=== PATIENT | female | born 1985 | race Caucasian/White ===

== ENCOUNTER 2025-03-19 15:08 | Outpatient (CLI) | payer OTHER, SELFPAY | END 2025-03-19 15:09 | disposition home or self-care (01) | PROVIDERS: Visit Provider Physician Assistant | DX: O16.3 Unspecified maternal hypertension, third trimester (principal); Z3A.33 33 weeks gestation of pregnancy | CPT/HCPCS: 82565; 82570; 84156; 84450; 84460; 84520 ==

== ENCOUNTER 2025-03-20 10:53 | Outpatient (CLI) | payer OTHER, SELFPAY ==
[2025-03-20] VITALS (39 sets, daily range): BP systolic 129–182; BP diastolic 70–96; PULSE 78–110; RESP 17; TEMP 36.8; O2SAT 100
--- NOTE | 2025-03-20 11:32 | P.OBLDTN_ITS ---
OB - Triage/Final Diagnosis Visit Information Date Seen: 03/20/25 Narrative: Jennifer is a 39 yo at 34 0/7 weeks gestation sent to triage for serial BP monitoring x 2 hours. She had an elevated BP in clinic yesterday and subsequent labs were drawn. She has not meet criteria for HTN disorder of at the time she was sent to OB triage. Her repeat BP today in clinic was 122/78. Her labs resulted last evening and were reviewed with her in clinic this morning. Her AST was 56 and ALT 82 with a p/c ratio of 0.82. Jennifer is a 39 yo at 34 0/7 weeks gestation dated by 1st trimester US. She transferred to [facility] on 03/05/2025 from [facility]. She was diagnosed with Gestational Diabetes on her transfer visit and was able to manage by diet until recently. She was seen yesterday by VENKATA Sauer and started on insulin for management of elevated fasting blood sugar. At that visit she had an elevated BP, on repeat remained elevated. MD occupational health physiotherapist, Dr. Shelbi Connolly, recommended labs which resulted over night. Patient was instructed to return this am for BP check. Her blood pressure in clinic this morning was 122/78. She denies any symptoms of severe pre- e. Her labs were elevated with AST 56, ALT 82, and p/c ratio 0.84. Consulted occupational health physiotherapist MD this morning, Dr. Aguilar, who recommended BP monitoring in OB triage. She was sent for repeat labs and BP monitoring. Her BP has remained elevated since arrival at triage with BP of 140's/70-90's. Labs are stable with AST 54, ALT 78, and p/c ratio 0.67. Again consulted Dr. Aguilar who recommends transfer of care. This plan was reviewed with the patient and she has elected for transfer to [facility]. OB PROBLEM LIST # GDM A2 Based on elevated fasting glucose levels - was checking glucose BID at home. Declined 1hour glucose test. Apiculturist referral placed; completed 03/11 Referral to VENKATA Nugent 03/19 for elevated fasting. Insulin initiated, NPH 18 units at night. Growth ultrasound every 4 weeks: 32 wks 46.2%ile, 36 weeks- Delivery during week 39 # Advanced Maternal Age, >40 Declines genetic testing Daily low dose aspirin MFM/level 2 US Growth ultrasound at 32 weeks: 46.2%ile Recommend IOL at 39 weeks # Obesity. (Pre- 39.7) BMI>40 Level 2 ultrasound Referral to dietitian: seen 03/11 Referral to anesthesia[] Weekly testing starting at 34 weeks (per previous clinic, recommended testing starting at 32 weeks -- NST ordered for 33 week visit) Growth ultrasound at 28 and 34 weeks: see above Delivery during week 39 # History growth restriction. 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 # History of generalized anxiety and depression # Severe Pre-e Elevated BP without diagnosis of HTN, meets criteria for SEVERE PRE-E on 03/20 by ALT with elevated BP's Labs ordered 03/19: Elevated AST 56 ALT 82, p/c ratio 0.84 Tdap- Declined Blood type O positive, antibody screen negative, hemoglobin 14.1, platelets 400, syphilis nonreactive, hepatitis B antigen negative, HIV negative, chlamydia and gonorrhea declined, rubella immune in previous pregnancies (not repeated this ), , hepatitis-C negative, varicella positive, TSH 2.1. Hemoglobin A1c 5.1 on 01/20/2025. Hemoglobin on 01/20/2025 13.1. urine culture urogenital microbiota present. Pap smear 05/08/2022 normal, negative HPV. Imagin10/02/2024: Single intrauterine . Gestational age an EVELINA by LMP or Ob/pH are assignment 9 weeks 0 days. EVELINA 05/07/2025.. heart rate 178 beats per minute. 12/11/2024 level 2 ultrasound: Single 10 intrauterine . EVELINA revised by 9 week scan. Incomplete anatomic survey: Suboptimal 3 vessels/trachea view due to position; remainder of anatomy appears normal. Composite biometry is consistent with gestational age. Posterior placenta without evidence of previa. Amniotic fluid volume normal. Recommend repeat ultrasound in 1-4 weeks to complete anatomy survey. 02/05/2025: Growth ultrasound: Single intrauterine at 27 weeks 6 days in breech presentation. Measurements within expected range for age, EFW 39.6%ile. Normal 3 vessel trachea view completes the anatomic survey. No anomalies identified. 03/05/2025: Growth US: SIUP. EFW 46.2%ile, BPD 9.2%. BPP 06/05. (completed at [facility]) Assessment: Pre-eclampsia with Severe Features based on ALT 2x upper limit Plan: [facility] was contacted for transfer and SBAR was given to Windows Application Packager Dr. Moreira with Dr. Obrien. They have accepted transfer of care and recommended IV magnesium prior to transfer. GBS to be collected and BMZ was initially recommended but held per Dr. Moreira who returned call stating it was not necessary. Patient has not eaten yet today and blood sugar was 98 this morning as her fasting. All questions and answered. Dr. Aguilar consulted, see above. GBS collected. Magnesium sulfate IV bolus initiated. BP monitoring per protocol. Transfer to [facility], accepting provider Dr. Obrien with Dr. Moreira. Transfer via Ambulance services. Evaluation Vital signs: Vital Signs - 24 hr 03/20/25 11:23 Pulse Rate 78 Blood Pressure 142/94 H Pulse Oximetry 100 Comments: Vitals Reviewed Constitutional:? Alert and oriented x3 HEENT:? Normocephalic, atraumatic Neck:? Supple Lungs:? Clear to auscultation bilaterally Heart:? Regular rate and rhythm, no murmur, rub or gallop Abdomen:? Soft, nontender, and gravid. Extremities:? No edema or erythema NST: 150 bpm/moderate variability/15x15 accelerations/no decelerations/no contractions Final Diagnosis (1) Preeclampsia: Status: Acute Problem details: with severe features based on elevated ALT with elevated BP (2) Advanced maternal age (AMA), 40 years or greater: Status: Acute (3) Gestational diabetes: Status: Acute (4) Obesity affecting : Status: Acute
[2025-03-20 11:52] LABS: Hemoglobin* 13.4 gm/dL (12.0-16.0); Mean Corpuscular HGB Conc 35 gm/dL (32-36); Mean Corpuscular Hemoglobin 30 pg (26-34); Mean Corpuscular Volume 85 fL (80-100); Platelet Count* 348 K/uL (140-440); Red Blood Count 4.49 m/uL (4.00-5.20); White Blood Count* 9.94 K/uL (4.50-11.00)
[2025-03-20 11:55] LABS: Slide Review Reflex No
[2025-03-20 11:57] LABS: Total Protein Urine 16 mg/dL
[2025-03-20 11:58] LABS: Protein Creatinine Ratio Urine 0.67 (0-0.19)
[2025-03-20 12:18] LABS: Alanine Aminotransferase* 78 U/L (4-35); Aspartate Amino Transferase* 54 U/L (12-35); Blood Urea Nitrogen* 8 mg/dL (5-24); Creatinine* 0.6 mg/dL (0.5-1.5); Estimated Glomerular Filt Rate 116 ml/min
--- NOTE | 2025-03-20 13:00 | PM.OBCN1 ---
OB - CN: HPI Date of Consult Date Seen: 03/20/25 Patient: [facility] Patient Consult date: 03/20/25 Requesting Physician: Michaela Vega CNM Primary Care Provider: Not a Local Provider Consult Narrative Narrative: Jennifer is a 39-year-old [id number] woman at 34 weeks, 0 days gestation by 1st trimester US, EVELINA 05/01/25, seen by request of Michaela Vega CNM for discussion of preeclampsia with severe features. She began to have persistent elevations of blood pressure on 03/20. Laboratory evaluation from 03/19/2025 showed hemoglobin 13.1, normal platelets, creatinine 0.6, AST 56 and ALT T 82. Upon return today, she has persistently elevated blood pressures. Her hemoglobin and platelets continue to be normal, and her creatinine continues to be 0.6. Her AST is still elevated at 54, and her ALT is still elevated at 78, more than twice the upper limit of normal. Protein to creatinine ratio yesterday was 0.84, and today it is 0.67. Of note, she transferred care to [facility] from [facility] in the 3rd trimester. Her 1st visit at this institution was 03/04/2025. She denies REDDY, visual change, RUQ pain. OB Problem List: # GDM A2 Based on elevated fasting glucose levels - was checking glucose BID at home. Declined 1hour glucose test. Front Office Clerk referral placed; completed 03/11 Referral to VENKATA Nugent 03/19 for elevated fastings. Insulin initiated. Growth ultrasound every 4 weeks: 32 wks 46.2%ile, 36 weeks- Delivery during week 39 # Advanced Maternal Age, >40 Declines genetic testing Daily low dose aspirin MFM/level 2 US Growth ultrasound at 32 weeks: 46.2%ile Recommend IOL at 39 weeks # Obesity. (Pre- 39.7) BMI>40 Level 2 ultrasound Referral to dietitian: seen 03/11 Weekly testing starting at 34 weeks (per previous clinic, recommended testing starting at 32 weeks -- NST ordered for 33 week visit) Growth ultrasound at 28 and 34 weeks: see above Delivery during week 39 # History growth restriction. 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 # History of generalized anxiety and depression History History 5 Elective abortions Para 4 Spontaneous abortions Hx # Term Pregnancies 4 Ectopic pregnancies Hx # Pregnancies Multiple births Number of Living Children 4 Past Pregnancies Del. Date GA/Weeks Outcome Route wt Inf Gender Labor Lgth Anesthesia Location Provider Compli 08/20/12 38 live - full term 7 lb 11.988 oz Male epidural 03/09/15 38 live - full term 8 lb 3.007 oz Male epidural 04/26/17 39 live - full term 8 lb 8.51 oz Female 06/23/19 38 live - full term 5 lb 3 oz Male Delivery Date: 06/23/19 Last Updated by: Brianna Zavaleta CNP Growth restriction. Dx: Ranjeet-Silver Syndrome Review of Systems Narrative: as above [facility] Medical History (Updated 03/20/25 @ 13:21 by Natalie Aguilar MD) growth restriction Anxiety and depression ?F41.9 - Anxiety disorder, unspecified (ICD-10) ?F32.A - Depression, unspecified (ICD-10) Surgical History (Updated 03/05/25 @ 09:53 by Brianna Zavaleta CNP) S/P excision of lipoma ?Z98.890 - Other specified postprocedural states (ICD-10) ?Z86.018 - Personal history of other benign neoplasm (ICD-10) Social History (Updated 03/05/25 @ 09:53 by Brianna Zavaleta CNP) Narrative: [employer]. 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 What is your current living situation?: I presently have a place to live Problems where you live: no known problems In the past 12 months, utilities in danger of being shut off: no In past 12 months, lack of transportation kept you from medical appts, meetings, work, or getting things needed for daily living: no In the past 12 mos, have been you worried that your food would run out before you had money to buy more?: never true In the past 12 mos, the food you bought just didn't last and you didn't have money to buy more?: never true Smoking Status: Never smoker How often does anyone, including family, friends and others, physically hurt you: never How often does anyone, including family, friends and others, insult or talk down to you: never How often does anyone, including family, friends and others, threaten you with harm: never How often does anyone, including family, friends and others, scream or curse at you: never Meds Home Medications and Allergies Home Medications ?Medication ?Instructions ?Recorded ?Confirmed ?Type blood sugar diagnostic (Accu-Chek #10 ea 03/04/25 03/20/25 History Guide test strips) blood-glucose meter (Accu-Chek #1 ea 03/04/25 03/20/25 History Guide Me Glucose Meter) docosahexaenoic acid 200 mg mg PO 03/04/25 03/20/25 History capsule ( DHA) lancets (Accu-Chek Softclix #100 ea 03/04/25 03/20/25 History Lancets) metronidazole 0.75 % topical gel topical BID 03/04/25 03/20/25 History Test Strips #200 ea 03/17/25 03/20/25 Rx lancets #200 ea 03/17/25 03/20/25 Rx alcohol swabs (Alcohol Pads) 2 pad topical DAILY #100 ea 03/19/25 03/20/25 Rx insulin NPH isoph U-100 human 100 18 unit (0.18 mL) subcut .hs #30 mL 03/19/25 03/20/25 Rx unit/mL subcutaneous suspension (Humulin N NPH U-100 Insulin (isophane susp)) insulin syringe-needle U-100 1 mL #100 ea 03/19/25 03/20/25 Rx 30 gauge x 5/16 (Sure Comfort Insulin Syringe) Allergies Allergy/AdvReac Type Severity Reaction Status Date / Time No Known Drug Allergies Allergy Verified 03/20/25 09:12 OB - H&P: Exam Physical Exam: Vital signs: Temp Pulse Resp BP Pulse Ox 98.3 F 95 17 147/85 H 100 03/20/25 11:23 03/20/25 12:53 03/20/25 11:23 03/20/25 12:53 03/20/25 11:23 Narrative: Gen - NAD Abd - Soft, NT, gravid, cephalic lie LE - no edema or erythema tracing: Baseline 150 / accelerations present / no decelerations / moderate variability OB - Results Labs Labs: Short CBC 03/20/25 Range/Units 11:38 WBC 9.94 (4.50-11.00) K/uL Hgb 13.4 (12.0-16.0) gm/dL Hct 38.0 (33.0-51.0) % Plt Count 348 (140-440) K/uL BMP 03/20/25 11:38 BUN 8 Creatinine 0.6 Liver Function 03/20/25 Range/Units 11:38 AST 54 H (12-35) U/L ALT 78 H (4-35) U/L OB - CN: A/P Assessment and Plan (1) Preeclampsia: Problem details: with severe features based on BP criteria Status: Acute (2) Gestational diabetes: Status: Acute (3) Advanced maternal age (AMA), 40 years or greater: Status: Acute Plan Discussed diagnosis with patient and Tabitha Vega CNM. I agree with plan to initiate magnesium for seizure prophylaxis and transfer to higher level of care. Agree with GBS testing. Tabitha discussed betamethasone with accepting physician at [facility] and this was also recommended. To be transferred by ambulance.
[2025-03-20] MEDS: LACTATED RINGERS 1000 ML 1,000 ML 75 ML IV (14:13)
[2025-03-20] MEDS: MAGNESIUM IV 4 GM/100 ML PIGGYBACK IVPB (14:13)
[2025-03-20] MEDS: MAGNESIUM Infusion 40 GM/1,000 ML IV.SOLN IVPB (14:57)
--- NOTE | 2025-03-20 23:19 | PC.OBNST ---
NST Note NST Note Start: 03/20/25 10:58 Freq: ONCE Status: Active Protocol: Document 03/20/25 21:00 POT (Rec: 03/20/25 23:19 POT No Response) NST Note 5 Para (# of births) 4 EDC 05/01/25 Gestational Age In 34 Weeks & 0 Days Weeks & Days High Risk Factors High Blood Pressure - Gestational,Diabetes - Gestational Diet Controlled,Advanced Maternal Age Patient Presented Other with Complaint(s) of Reactive Yes MARIZA Knott, RN Date 03/20/25 Reactive Yes MARIZA Hamlin RN Date 03/20/25 OB NST charge Yes Complete NST Note Yes via Write Note The provider's electronic signature indicates the NST is reactive/appropriate for gestational age. *Note to provider: If an addendum is required, open the patient's chart and click on the note under the Nurse/Allied Health tab.
[2025-03-21 13:50] LABS: Strep B DNA Probe POSITIVE (Negative)
[2025-03-21 14:39] LABS: Strep B Susceptibility Needed? No
== END 2025-03-20 21:58 ==
LOC: OB CLI 10:55 → OB 10:57
PROVIDERS: Visit Provider Advanced Practice Midwife
DX: O24.419 Gestational diabetes mellitus in pregnancy, unspecified control (principal); O09.523 Supervision of elderly multigravida, third trimester; O16.3 Unspecified maternal hypertension, third trimester; Z3A.34 34 weeks gestation of pregnancy
CPT/HCPCS: 36415; 59025; 82565; 82570; 84156; 84450; 84460; 84520; 85027; 87081; 87653; G0463; J3475; J7120

== ENCOUNTER 2025-03-20 22:10 | Outpatient (CLI) | payer OTHER, SELFPAY | END 2025-03-20 22:11 | disposition home or self-care (01) | LOC: AMB 03-23 10:48 | PROVIDERS: Visit Provider Family Medicine | DX: O14.93 Unspecified pre-eclampsia, third trimester (principal); Z3A.34 34 weeks gestation of pregnancy | CPT/HCPCS: A0425; A0427 ==

== ENCOUNTER 2025-03-31 13:25 | Outpatient (CLI) | payer OTHER, SELFPAY | END 2025-03-31 13:26 | disposition home or self-care (01) | LOC: NFLDREF 04-04 06:55 | PROVIDERS: Visit Provider Obstetrics & Gynecology | DX: O14.93 Unspecified pre-eclampsia, third trimester (principal); Z3A.35 35 weeks gestation of pregnancy | CPT/HCPCS: 82565; 84450; 84460; 84520 ==

== ENCOUNTER 2025-04-03 12:58 | Outpatient (CLI) | payer OTHER, SELFPAY ==
--- NOTE | 2025-04-03 13:00 | CRLHL7_ITS ---
For Patients: As a result of the Century Cures Act, medical imaging exams and procedure reports are released immediately into your electronic medical record. You may view this report before your referring provider. If you have questions, please contact your health care provider. INDICATION: Preeclampsia TECHNIQUE: Limited transabdominal two-dimensional cordova-scale ultrasound examination. COMPARISON: None FINDINGS: There is a living fetus in cephalic lie with gestational age of 36 weeks and EDC of 05/01/2025. The biophysical profile score is 6/8 with component scores of 2 for breathing movements, 2 for gross body movements, 0 for tone and 2 for amniotic fluid/SDP. The heart rate is measured at 147 beats per minute and the rhythm appears regular. The amniotic fluid volume is within normal limits with single deepest pocket of 4.2 cm. The placenta is posterior/right and superior to the cervical os. There is no evidence of previa. IMPRESSION: 1. Living fetus in cephalic lie with gestational age of 36 weeks and EDC of 05/01/2025. 2. Biophysical profile score is 6/8 with component scores of 2 for breathing movements, 2 for gross body movements, 0 for tone and 2 for amniotic fluid/SDP. Dictated by Willian Holm MD @ 04/03/2025 2:02:16 PM (Electronically Signed)
== END 2025-04-03 12:59 | disposition home or self-care (01) ==
LOC: US 12:58
PROVIDERS: Visit Provider Obstetrics & Gynecology
DX: O14.93 Unspecified pre-eclampsia, third trimester (principal); Z3A.36 36 weeks gestation of pregnancy
CPT/HCPCS: 76819

== ENCOUNTER 2025-04-03 15:13 | Inpatient (IN) | payer OTHER, SELFPAY ==
[2025-04-03] VITALS (30 sets, daily range): BP systolic 105–181; BP diastolic 57–98; PULSE 85–108; TEMP 36.8–37.2; O2SAT 97; BMI 43.0
[2025-04-03] MEDS: LABETALOL HCL 5 MG/ML inj IVP (17:48)
[2025-04-03] MEDS: LACTATED RINGERS 1000 ML 1,000 ML 75 ML IV (17:50)
[2025-04-03] MEDS: MAGNESIUM IV 4 GM/100 ML PIGGYBACK IVPB (17:50)
[2025-04-03] MEDS: MAGNESIUM Infusion 40 GM/1,000 ML IV.SOLN IVPB (18:23)
[2025-04-03] MEDS: NIFEdipine ER 30 MG TAB 60 MG PO (18:36)
[2025-04-03 18:37] LABS: Hematocrit 38.2 % (33.0-51.0); Hemoglobin* 13.3 gm/dL (12.0-16.0); Mean Corpuscular HGB Conc 35 gm/dL (32-36); Mean Corpuscular Hemoglobin 30 pg (26-34); Mean Corpuscular Volume 86 fL (80-100); Platelet Count* 342 K/uL (140-440); Red Blood Count 4.46 m/uL (4.00-5.20); White Blood Count* 11.94 K/uL (4.50-11.00)
[2025-04-03 18:38] LABS: Slide Review Reflex No
[2025-04-03 19:00] LABS: Alanine Aminotransferase* 39 U/L (4-35); Aspartate Amino Transferase* 40 U/L (12-35); Blood Urea Nitrogen* 13 mg/dL (5-24); Creatinine* 0.5 mg/dL (0.5-1.5); Estimated Glomerular Filt Rate 122 ml/min
[2025-04-03] MEDS: INSULIN NPH 100 UNIT/ML 7 UNIT SUBCUT (21:03)
--- NOTE | 2025-04-03 21:56 | P.LDBA_ITS ---
Subjective History of Present Illness Time Seen by Provider: 20:00 Date Seen: 04/03/25 Narrative: Patient is being admitted to Labor and Delivery for induction of labor. She is a 39 year old at 36.0 weeks gestation. Her full history and physical was dictated by Dr. RICHARDS on 03/31/25. Please see this for details. She presented today for scheduled BPP due to twice weekly surveillance for preeclampsia without severe features. BPP 04/05, -2 for tone. Then, she was placed on NST. NST: Baseline 150 bpm, moderate variability, multiple 15 x 15 accelerations, approximately 3 and a have prolonged deceleration down to 100 beats per minute. Overall, reactive but nonreassuring. Thus, BPP 6/10. She was sent to the Center for prolonged monitoring overnight with the initial plan to repeat BPP in 24 hours. However, during her monitoring around 5:00 p.m., she started having severe ranging blood pressures requiring IV antihypertensive medication (20 mg of labetalol). Counseled patient that induction is recommended given her preeclampsia with master re features. Patient is upset as she transfer to [facility] in hopes of pursuing a no intervention delivery. However, she understands the urgency of the situation and consented to IOL. Denies any persistent headache, vision changes, SOB, right upper quadrant/epigastric pain, or rapidly expanding edema. Active movement. Denies Ctx, LOF, vaginal bleeding or abnormal vaginal discharge. Specific Issues/Plans : Walter H&P by SUSIE on 03/31/2025 # Preeclampsia * W/ severe features diagnosed 03/20/25: BPs 138-163/70-96, Urine P/C 0.67. AST 54, ALT 78 transferred to [facility] on magnesium for seizure prophylaxis. * BMTZ 03/21 and 03/22 * [place] stopped the Mag on 03/21 (did not meet criteria for severe pre-e at [place] b/c transaminitis improved) * AST and ALT decreased to AST 50 and ALT 28 on 03/26/25 * Wkly preeclampsia labs * Twice weekly testing alternating BPP with NST * US for EFW with next BPP * Deliver for severe pre-e or at 37wks * IOL consent reviewed and signed for IOL on 04/10/25 arrive at 7:30am, desires AROM before pitocin (is GBS +) # GDM A2 * Based on elevated fasting glucose levels - was checking glucose BID at home. Declined 1hour glucose test. * Cardio Clinician referral placed; completed 03/11 * Referral to VENKATA Nugent 03/19 for elevated fastings. Insulin initiated. * Growth ultrasound every 4 weeks: 32 wks 46.2%ile, 35 weeks 85% * D/C'd from the [facility] on insulin glargine = lantus (like NPH) 12u QHS on 03/26/2025 --> 14u QHS on 03/29 * Delivery during week 37wks for pre-e # Advanced Maternal Age, >40 Declines genetic testing Daily low dose aspirin MFM/level 2 US Growth ultrasound at 32 weeks: 46.2%ile Recommend IOL at 37 wks for pre-e # Obesity. (Pre- 39.7) BMI>40 * Level 2 ultrasound * Referral to dietitian: seen 03/11 * Referral to anesthesia placed 03/31/25 * testing per preeclampsia guidelines * Growth ultrasound at 28 and 34 weeks: see above * Delivery during week 37 weeks for pre-e # GBS positive: ampicillin for prophylaxis # History growth restriction. 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 # History of generalized anxiety and depression # Recommended rubella titer with 34 week hgb: patient declined Tdap- Declined Blood type O positive, antibody screen negative, hemoglobin 14.1, platelets 400, syphilis nonreactive, hepatitis B antigen negative, HIV negative, chlamydia and gonorrhea[], rubella[], , hepatitis-C negative, varicella positive, TSH 2.1. Hemoglobin A1c 5.1 on 01/20/2025. Hemoglobin on 01/20/2025 13.1. urine culture urogenital microbiota present. Pap smear 05/08/2022 normal, negative HPV. Imagin10/02/2024: Single intrauterine . Gestational age an EVELINA by LMP or Ob/pH are assignment 9 weeks 0 days. EVELINA 05/07/2025.. heart rate 178 beats per minute. 12/11/2024 level 2 ultrasound: Single 10 intrauterine . EVELINA revised by 9 week scan. Incomplete anatomic survey: Suboptimal 3 vessels/trachea view due to position; remainder of anatomy appears normal. Composite biometry is consistent with gestational age. Posterior placenta without evidence of previa. Amniotic fluid volume normal. Recommend repeat ultrasound in 1-4 weeks to complete anatomy survey. 02/05/2025: Growth ultrasound: Single intrauterine at 27 weeks 6 days in breech presentation. Measurements within expected range for age, EFW 39.6%ile. Normal 3 vessel trachea view completes the anatomic survey. No anomalies identified. 03/05/2025: Growth US: SIUP. EFW 46.2%, BPD 9.2%. BPP 06/05. (completed at [facility]) 03/24/2025: [facility], Growth: Vtx, SDP 4.2cm, EFW 2840gm, 6#4oz, 85%. OB - Problem Based A/P Additional Plan (1) GDM, class A2: Status: Acute Plan: - On 14u of NPH QHS - Will give halft tonigher per protocol - Sliding scale PRN (2) Preeclampsia: Problem details: with severe features based on elevated ALT with elevated BP Status: Acute Plan: Pre-Eclampsia with severe features - Based on severe ranging blood pressures requiring IV antihypertensive - BPs 130-180s/70-90s - Symptoms: none - Magnesium: on Magnesium for seizure ppx - IV antihypertensives: s/p 20 mg of labetalol IV - PO antihypertensives: Nifedipine XL 60 mg QD - Pre-eclampsia labs on 04/04/25: Hgb 13.3 Plt 342 Cr 0.5 ALT 39 AST 40 - Q6H labs - Strict I/O - UOP: Adequate (3) Obesity affecting : Problem details: BMI 43 on 03/31/25 Status: Acute (4) Advanced maternal age (AMA), 40 years or greater: Status: Acute (5) Encounter for induction of labor: Status: Acute Plan: - Cook cath placed @ 2014, 50cc/50cc. Patient tolerate placement well. - Titrating pitocin 6 hours after cook cath placement - GBS+, will start ampicillin once pitocin is started OB Exam Physical Exam Vital signs: Temp Pulse BP Pulse Ox 98.9 F 97 136/66 97 04/03/25 15:33 04/03/25 20:56 04/03/25 20:56 04/03/25 15:31 Narrative: Physical exam: General: No acute distress Psych: Alert and oriented x4, full affect Neck: No cervical adenopathy, no thyromegaly Heart: Regular rate and rhythm, no murmur rub or gallop Lungs: Clear to auscultation bilaterally Abdomen: Gravid. soft, no tenderness, rebound, or guarding Lower extremities: +1 bilateral lower extremity edema Pelvic exam: Dry perineum. 1.5 cm at internal os/40/-3, moderately soft, mid. Arnold score of 4.
[2025-04-03] MEDS: hydrOXYzine pamoate 25 MG CAPSULE 100 MG PO (22:12)
[2025-04-03] MEDS: MORPHINE 10 MG/ML inj IM (22:13)
[2025-04-04] VITALS (84 sets, daily range): BP systolic 79–188; BP diastolic 40–100; PULSE 59–111; RESP 16–28; TEMP 36.4–36.8; O2SAT 92–100
[2025-04-04] MEDS: AMPICILLIN 2 GM in 0.9 % SODIUM CHLORIDE Mini-bag 100 ML IVPB (02:10)
[2025-04-04] MEDS: OXYTOCIN 30 unit/500 ML in NS 30 UNIT/500 ML BAG IVPB (02:10)
[2025-04-04] MEDS: INSULIN ASPART 100 UNIT/ML SUBCUT (04:40)
[2025-04-04] MEDS: ACETAMINOPHEN 500 MG TABLET 1000 MG PO ×2 (05:05→19:14)
[2025-04-04] MEDS: AMPICILLIN 1 GM in 0.9 % SODIUM CHLORIDE Mini-bag 100 ML IVPB ×2 (06:31→10:50)
[2025-04-04 06:42] LABS: Hematocrit 36.2 % (33.0-51.0); Hemoglobin* 12.5 gm/dL (12.0-16.0); Mean Corpuscular HGB Conc 35 gm/dL (32-36); Mean Corpuscular Hemoglobin 30 pg (26-34); Mean Corpuscular Volume 86 fL (80-100); Platelet Count* 321 K/uL (140-440); Red Blood Count 4.21 m/uL (4.00-5.20); White Blood Count* 13.83 K/uL (4.50-11.00)
[2025-04-04 06:44] LABS: Slide Review Reflex No
[2025-04-04 06:50] LABS: Alanine Aminotransferase* 33 U/L (4-35); Aspartate Amino Transferase* 34 U/L (12-35); Blood Urea Nitrogen* 12 mg/dL (5-24); Creatinine* 0.5 mg/dL (0.5-1.5); Est. Creatinine Clearance* 140.01; Estimated Glomerular Filt Rate 122 ml/min
[2025-04-04 07:04] LABS: Magnesium* 4.6 mg/dL (1.5-2.6)
--- NOTE | 2025-04-04 07:39 | P.OBPN_ITS ---
Subjective Time Seen by Provider: 08:15 Date Seen: 04/04/25 Narrative: Jennifer is a 39yo at 36w1d GA ongoing IOL for preE with severe features (severe range BP requiring treatment, recent history of transaminitis). is otherwise complicated by GDMA2, AMA, obesity. Jennifer was diagnosed with preE on 03/20, transferred to [facility] fo suspected preE with SF. There, she received BMZ course and they ultimately felt she did not meet criteria for severe features and was discharged with close interval follow up. During routine testing yesterday, she had a 6/10 BPP. She was admitted for observation, where she had sustained SRBP necessitating treatment in the evening. Started on magnesium sulfate for seizure prophylaxis and IOL was recommended. Please see Dr. Linares's note for complete details. IOL has included Cook cathteter and low dose pitocin overnight. Jennifer is feeling okay this morning, fatigued. She expressed understanding and is agreeable to IOL despite this not being her ideal plan. Certainly that is understandable, but I did affirm medical recommendation for IOL given overt preE with SF. She notes minimal contractions, no vaginal bleeding or leaking of fluids. Endorses active movement. Feels fatigued, but overall is tolerating magnesium suflate well. Denies headaches, vision changes or RUQ pain. AM labs reassuring - Plt 321, Cr 0.5, AST 34 (40) and ALT 33 (39). BPs have been in the normal to mild range since IV labetolol x1. Ampicillin ongoing for GBS positivity. Objective Exam: General: Alert and oriented, no acute distress Psych: Appropriate mood and affect Abdomen: Gravid. heart rate: Category 1. Baseline 140 beats per minute, moderate variability, accelerations present, decelerations absent. Overnight, had intermittent category 2 tracing for periods of minimal variability and rare decelerations. [place]: Difficult to assess contractions. Cervix: Cook catheter removed. Cervix is 4/40/-1, head is well applied. Vital Signs: Last Vital Signs Temp 98.1 F 04/04/25 07:27 Pulse 78 04/04/25 07:27 BP 128/74 04/04/25 07:27 Pulse Ox 99 04/04/25 04:44 Plan Plan: Jennifer is a 39yo admitted at 36w1d GA ongoing IOL for preeclampsia with severe features. is otherwise complicated by GDMA2, AMA and obesity. - IOL has included cook catheter and pitocin. Cervix is 4/40/-1, discussed potential next steps in her IOL this morning. Plan to continue pitocin titr ation, with plan for upcoming amniotomy. Patient would like to rest, eat and shower this morning. Agreeable for repeat exam in a few hours for amniotomy. - Magnesium sulfate at 2g/hr for seizure prophylaxis, plan to continue for 24 hours - BPs have been low normal since IV labetolol and nifedipine 60mg last night. Plan to hold further antihypertensive medications at present. If BPs are noted to rise intrapartum, will consider further doses of nifedipine PO PRN. Plan to treat sustained SRBP with short acting anti-hypertensive medications as needed. - No signs/symptoms of INDUSTRIAL ENGINEERING INTERN irritability (headache, vision changes) or RUQ pain at present - diligent monitoring ongoing - Serial HELLP labs Q6H - Pre-eclampsia labs on 04/04 at 0615: Plt 321, Cr 0.5, AST 34 (40) and ALT (33) - UOP: Adequate, strict I/Os ongoing - Pain control per patient preference, open to unmedicated or epidural - BG monitoring for GDMA2 ongoing - last received half of her preexisting NPH insulin (7U) yesterday evening. Consider IV insulin infusion per protocol when in active labor. - BT O+, active T/S on file - GBS positive, ampicillin ongoing - Pediatrics to attend delivery in the setting of preE with SF and prematurity
[2025-04-04] MEDS: LACTATED RINGERS 1000 ML 1,000 ML 75 ML IV ×2 (08:30→14:19)
[2025-04-04] MEDS: fentaNYL 100 MCG/2 ML inj EPIDURAL (11:30)
[2025-04-04] MEDS: LIDOCAINE 2% (PF) 5 ML VIAL EPIDURAL (11:30)
[2025-04-04] MEDS: ROPIVACAINE 0.2% 100 ml 100 ML 12 MG EPIDURAL (11:35)
[2025-04-04] MEDS: PHENYLEPHRINE 100 MCG/ML SYRINGE IVP ×14 (11:41→12:14)
[2025-04-04] MEDS: ePHEDrine sulfate 5 MG/ML inj 10 MG IVP ×4 (11:50→12:12)
--- NOTE | 2025-04-04 12:07 | PM.ANBPRC ---
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 What is your current living situation?: I presently have a place to live Problems where you live: no known problems In the past 12 months, utilities in danger of being shut off: no In past 12 months, lack of transportation kept you from medical appts, meetings, work, or getting things needed for daily living: no In the past 12 mos, have been you worried that your food would run out before you had money to buy more?: never true In the past 12 mos, the food you bought just didn't last and you didn't have money to buy more?: never true Smoking Status: Never smoker How often does anyone, including family, friends and others, physically hurt you: never How often does anyone, including family, friends and others, insult or talk down to you: never How often does anyone, including family, friends and others, threaten you with harm: never How often does anyone, including family, friends and others, scream or curse at you: never Meds Home Medications and Allergies Home Medications ?Medication ?Instructions ?Recorded ?Confirmed ?Type blood sugar diagnostic (Accu-Chek #10 ea 03/04/25 03/31/25 History Guide test strips) blood-glucose meter (Accu-Chek #1 ea 03/04/25 03/31/25 History Guide Me Glucose Meter) docosahexaenoic acid 200 mg mg PO 03/04/25 03/31/25 History capsule ( DHA) lancets (Accu-Chek Softclix #100 ea 03/04/25 03/31/25 History Lancets) metronidazole 0.75 % topical gel topical BID 03/04/25 03/31/25 History Test Strips #200 ea 03/17/25 03/31/25 Rx lancets #200 ea 03/17/25 03/31/25 Rx alcohol swabs (Alcohol Pads) 2 pad topical DAILY #100 ea 03/19/25 03/31/25 Rx insulin NPH isoph U-100 human 100 18 unit (0.18 mL) subcut .hs #30 mL 03/19/25 03/31/25 Rx unit/mL subcutaneous suspension (Humulin N NPH U-100 Insulin (isophane susp)) insulin syringe-needle U-100 1 mL #100 ea 03/19/25 03/31/25 Rx 30 gauge x 5/16 (Sure Comfort Insulin Syringe) Allergies Allergy/AdvReac Type Severity Reaction Status Date / Time No Known Drug Allergies Allergy Verified 03/31/25 13:39 Results Labs Labs: Laboratory Results - last 24 hr 04/03/25 04/04/25 18:30 06:23 WBC 11.94 H 13.83 H RBC 4.46 4.21 Hgb 13.3 12.5 Hct 38.2 36.2 MCV 86 86 MCH 30 30 MCHC 35 35 Plt Count 342 321 BUN 13 12 Creatinine 0.5 0.5 Estimated Creat Clear 140.01 Estimated GFR 122 122 Magnesium 4.6 H* AST 40 H 34 ALT 39 H 33 Blood Type O Positive Antibody Screen NEGATIVE Vital Signs Vital Signs: Last Vital Signs Temp 98.0 F 04/04/25 09:32 Pulse 86 04/04/25 12:06 Resp 16 04/04/25 08:31 BP 109/56 L 04/04/25 12:06 Pulse Ox 99 04/04/25 12:05 Weight: 122.924 kg Height: 168.91 cm Anesthesia Procedures Epidural Insertion Patient Location: OB Start Time: 11:00 Stop Time: 12:00 Start Date: 04/04/25 Stop Date: 04/04/25 Reason for Block: procedure for pain Patient Position: sitting Performed By: Annetta Jerez Preanesthetic Checklist: IV checked, risks and benefits discussed, monitors and equipment checked, pre-op evaluation, timeout performed and anesthesia consent Prep: chlorhexidine gluconate Monitoring: blood pressure monitoring, continuous pulse oximetry and heart rate Approach: midline Vertebral Space: lumbar (1-5) Epidural Technique: MIKE saline Needle Type: Tuohy needle Injection Technique: continuous catheter (continuous catheter) Needle gauge: 17 Needle Length (cm): 10 cm Needle Insertion Depth (cm): 8 Catheter Gauge: 19 Catheter Type: multi-orifice Catheter at skin depth (cm): 15 Test Dose Result: negative and lidocaine 1.5% with epinephrine 1 to 200,000
--- NOTE | 2025-04-04 12:28 | PM.OBPNL ---
Subjective Date Seen: 04/04/25 Narrative: Jennifer is a 39yo at 36w1d GA ongoing IOL for preE with severe features (severe range BP requiring treatment, recent history of transaminitis). is otherwise complicated by GDMA2, AMA, obesity. Since our last exam, patient had onset of regular and painful contractions. Pitocin was cut in half to 6mu/min. She is s/p regional anesthesia placement, where post-procedure hypotension was noted and treated. Category 2 FHR tracing during periods of hypotension, where IV ephedrine/phenylephine and maternal repositioning provided improvement. She is now comfortable and status is reassuring. Agreeable to exam and likely amniotomy. Objective Exam: General: Alert and oriented, no acute distress Psych: Appropriate mood and affect Abdomen: Gravid. heart rate: Category 1 at present. Baseline 130bpm, moderate variability, 10x10 accelerations present. Recently was category 2 for recurrent spontaneous decelerations related to post-regional hypotension. resuscitative efforts ensued with excellent improvement. [place]: [place] about q3m Cervix: 8/90/0. AROM performed with return of thin meconium stained fluid. Vital Signs: Last Vital Signs Temp 98.0 F 04/04/25 09:32 Pulse 86 04/04/25 12:26 Resp 16 04/04/25 08:31 BP 119/63 04/04/25 12:26 Pulse Ox 96 04/04/25 12:25 Plan Plan: Jennifer is a 39yo admitted at 36w1d GA ongoing IOL for preeclampsia with severe features. is otherwise complicated by GDMA2, AMA and obesity. - IOL has included cook catheter and pitocin. Cervix is now 8/90/0, AROM performed with thin meconium fluid. - Magnesium sulfate at 2g/hr for seizure prophylaxis, plan to continue for 24 hours - BPs have been primarily normal without treatment (since nifedipine XL 60mg last night). She did have two severe range BP at time of regional placement, wide pulse pressure noted. This resolved without treatment. She subsequently had post-procedure hypotension requiring phenylephrine and ephedrine. - Plan to hold further antihypertensive medications at present. If BPs are noted to rise intrapartum, will consider further doses of nifedipine PO PRN. Plan to treat sustained SRBP with short acting anti-hypertensive medications as needed. - No signs/symptoms of LADIES' LOCKER ROOM ATTENDANT irritability (headache, vision changes) or RUQ pain at present - diligent monitoring ongoing - Serial HELLP labs Q6H - Pre-eclampsia labs on 04/04 at 0615: Plt 321, Cr 0.5, AST 34 (40) and ALT (33) - UOP: Adequate, strict I/Os ongoing - BG monitoring for GDMA2 ongoing - last received half of her preexisting NPH insulin (7U) yesterday evening. Consider IV insulin infusion per protocol when in active labor. - BT O+, active T/S on file - GBS positive, ampicillin ongoing (adequately treated) - Patient is now comfortable s/p epidural placement. - Anticipate next exam in 2 hours, sooner as clinically indicated - Pediatrics to attend delivery in the setting of meconium, preE with SF and prematurity
[2025-04-04 12:50] LABS: Hematocrit 35.6 % (33.0-51.0); Hemoglobin* 12.4 gm/dL (12.0-16.0); Mean Corpuscular HGB Conc 35 gm/dL (32-36); Mean Corpuscular Hemoglobin 30 pg (26-34); Mean Corpuscular Volume 87 fL (80-100); Platelet Count* 325 K/uL (140-440); Red Blood Count 4.11 m/uL (4.00-5.20); White Blood Count* 13.53 K/uL (4.50-11.00)
[2025-04-04 12:54] LABS: Slide Review Reflex No
[2025-04-04 13:11] LABS: Alanine Aminotransferase* 31 U/L (4-35); Aspartate Amino Transferase* 37 U/L (12-35); Blood Urea Nitrogen* 13 mg/dL (5-24); Creatinine* 0.7 mg/dL (0.5-1.5); Est. Creatinine Clearance* 100.01; Estimated Glomerular Filt Rate 112 ml/min
[2025-04-04 13:24] LABS: Magnesium* 4.9 mg/dL (1.5-2.6)
--- NOTE | 2025-04-04 13:37 | W.PM.VAGD1_ITS ---
Procedure Procedure Done: Global Procedure Details: Normal spontaneous vaginal delivery Events: GDMA2, Pre-Eclampsia, Labor Induction, Meconium Stained Fluid and AMA Intrapartal Events: Labor Augmentation Delivery augmentation: rupture of membranes Delivery monitor: external FHT Route of delivery: Laceration description: None Estimated blood loss (mL): 200 Anesthesia type: Epidural Disposition: floor Complications: None Narrative: Jennifer is a 39 yo at 36w1d GA admitted for induction of labor for preeclampsia with severe features. is complicated by GDM A2, advanced maternal age, obesity. Patient had a 6/10 BPP yesterday in clinic, prompting observation of the Center. Overnight, she had sustained severe range blood pressures necessitating treatment. As such, recommendation was made to proceed with induction of labor in the setting of preeclampsia with severe features. heart tones on admission were category 1. Her labor was induced with Cook catheter and Pitocin and epidural was utilized for pain management. Status of bag of celestin: AROM performed with thin meconium-stained fluid. heart tones during active labor were category 1 and 2. FHR responded well to resuscitative efforts including treatment of post- regional hypotension and maternal repositioning. Category 2 FHR tracing was noted with minimal variability, with intermittent disruption in FHR tracing during contractions. I presented to the bedside at 1316 to request cervical exam and consideration of FSE placement. With repositioning for exam, head was noted to deliver spontaneously direct OA at 1317. The anterior and posterior shoulders delivered without difficulty, baby was placed onto maternal abdomen. Nuchal cord absent. Vigorous was noted, excellent tone and spontaneous cry. Patient had previously requested delayed cord clamping until pulseless (assuming reassuring and bleeding status) where delayed cord clamping was performed for 5 minutes. The cord was then clamped and cut. Active management of the third stage occurred with IV pitocin and gentle cord traction and the placenta delivered spontaneous and intact at 1326. Cord gases sent: no Cord blood sent for ABO: no details: - Liveborn male fetus at 1317 - weight pending at time of documentation - APGARs were 8 and 9 at 1 and 5 minutes respectively Perineum and vagina were inspected, and the following lacerations were noted: tiny abrasion of posterior vagina and periurethral, both superficial and hemostatic where repair was not required. Excellent hemostasis was noted. QBL 200cc. The following counts were correct: sponges, needles, instruments. Mother and infant in stable condition following the . [place] Inf[facility] Infant Gender: Male presentation: vertex Placental Delivery Description: Spontaneous Cord Description: 3 Vessels
[2025-04-04] MEDS: MAGNESIUM Infusion 40 GM/1,000 ML IV.SOLN IVPB (14:17)
[2025-04-04] MEDS: NIFEdipine ER 30 MG TAB PO (15:46)
[2025-04-04] MEDS: IBUPROFEN 600 MG TABLET PO ×2 (17:25→22:39)
[2025-04-04] MEDS: DOCUSATE SODIUM 100 MG CAPSULE PO (18:15)
[2025-04-04 18:32] LABS: Hematocrit 35.5 % (33.0-51.0); Hemoglobin* 12.4 gm/dL (12.0-16.0); Mean Corpuscular HGB Conc 35 gm/dL (32-36); Mean Corpuscular Hemoglobin 30 pg (26-34); Mean Corpuscular Volume 85 fL (80-100); Platelet Count* 320 K/uL (140-440); Red Blood Count 4.16 m/uL (4.00-5.20); White Blood Count* 15.09 K/uL (4.50-11.00)
[2025-04-04 18:39] LABS: Slide Review Reflex No
[2025-04-04 18:46] LABS: Blood Urea Nitrogen* 11 mg/dL (5-24); Creatinine* 0.5 mg/dL (0.5-1.5); Est. Creatinine Clearance* 140.01; Estimated Glomerular Filt Rate 122 ml/min
[2025-04-04 18:47] LABS: Alanine Aminotransferase* 33 U/L (4-35); Aspartate Amino Transferase* 38 U/L (12-35)
[2025-04-05] VITALS (9 sets, daily range): BP systolic 115–139; BP diastolic 76–89; PULSE 86–96; RESP 16–28; TEMP 36.3–37; O2SAT 92–96
[2025-04-05] MEDS: ACETAMINOPHEN 500 MG TABLET 1000 MG PO ×2 (01:30→08:47)
[2025-04-05] MEDS: IBUPROFEN 600 MG TABLET PO ×2 (04:32→12:42)
[2025-04-05] MEDS: LACTATED RINGERS 1000 ML 1,000 ML 75 ML IV (05:07)
[2025-04-05 08:14] LABS: Hematocrit 31.9 % (33.0-51.0); Hemoglobin* 10.9 gm/dL (12.0-16.0); Mean Corpuscular HGB Conc 34 gm/dL (32-36); Mean Corpuscular Hemoglobin 30 pg (26-34); Mean Corpuscular Volume 88 fL (80-100); Platelet Count* 285 K/uL (140-440); Red Blood Count 3.64 m/uL (4.00-5.20)
[2025-04-05 08:16] LABS: Slide Review Reflex No
[2025-04-05 08:21] LABS: Alanine Aminotransferase* 27 U/L (4-35); Aspartate Amino Transferase* 30 U/L (12-35); Creatinine* 0.5 mg/dL (0.5-1.5); Est. Creatinine Clearance* 140.01; Estimated Glomerular Filt Rate 122 ml/min
[2025-04-05 08:30] LABS: Magnesium* 5.1 mg/dL (1.5-2.6)
--- NOTE | 2025-04-05 08:36 | PM.OBPNVD1 ---
OB - PN:Subj Subjective Time Seen by Provider: 08:15 Date Seen: 04/05/25 Narrative: Jennifer is a 39 yo at 36w1d GA admitted for induction of labor for preeclampsia with severe features. is complicated by GDM A2, advanced maternal age, obesity. Patient had a 6/10 BPP yesterday in clinic, prompting observation of the Center. Overnight, she had sustained severe range blood pressures necessitating treatment. As such, recommendation was made to proceed with induction of labor in the setting of preeclampsia with severe features. Patient had an uncomplicated on 04/04/25 at 1317. , her blood pressures have been in the normal to mild range. She did receive 1 dose of nifedipine XL 30 mg yesterday evening, where blood pressures have subsequently been entirely within normal limits. Patient is feeling well this morning denies headaches, vision changes or right upper quadrant pain. Repeat pre labs are pending. Magnesium sulfate is due to stop at approximately 1315 this afternoon. She endorses cramping with that is quite pronounced, but no other significant abdominal/pelvic or perineal pain. Tolerating a diet without nausea or vomiting. Voiding spontaneously, passing flatus. No bowel movement yet. Ambulates without difficulty. Denies chest pain, dyspnea, fevers or chills. Jennifer is baby Iqbal, notes this is going well. OB - PN: Obj Exam Physical Exam: Vital signs: Temp Pulse Resp BP Pulse Ox O2 Del Method 97.9 F 92 20 129/85 92 Room Air 04/05/25 04:00 04/05/25 06:00 04/05/25 06:00 04/05/25 06:00 04/05/25 06:00 04/05/25 06:00 Narrative: General: Alert and oriented, no acute distress Psych: Appropriate mood and affect Heart: Regular rate and rhythm, no rubs murmurs or gallops Lungs: Clear to posterior auscultation. No wheezes, rales or crackles. Abdomen: Soft, nondistended. Nontender to palpation. Fundus palpates firm at 1 below umbilicus. OB - PN: Obj Data Labs Labs: Laboratory Results - last 24 hr 04/04/25 04/04/25 04/05/25 12:45 18:27 07:57 WBC 13.53 H 15.09 H 8.90 RBC 4.11 4.16 3.64 L Hgb 12.4 12.4 10.9 L Hct 35.6 35.5 31.9 L MCV 87 85 88 MCH 30 30 30 MCHC 35 35 34 Plt Count 325 320 285 BUN 13 11 Creatinine 0.7 0.5 0.5 Estimated Creat Clear 100.01 140.01 140.01 Estimated GFR 112 122 122 Magnesium 4.9 H* 5.0 H* 5.1 H* AST 37 H 38 H 30 ALT 31 33 27 OB - PN: A/P Delivery Assessment and Plan (1) GDM, class A2: Status: Acute (2) Preeclampsia: Problem details: with severe features based on elevated ALT with elevated BP Status: Acute (3) Obesity affecting : Problem details: BMI 43 on 03/31/25 Status: Acute (4) Advanced maternal age (AMA), 40 years or greater: Status: Acute (5) Encounter for induction of labor: Status: Acute Plan Jennifer is a 39yo s/p on 04/04 following IOL for preeclampsia with severe features. is otherwise complicated by GDMA2, AMA and obesity. - Magnesium sulfate at 2g/hr for seizure prophylaxis, plan to discontinue at approximately 1315 this afternoon. - BPs have been within normal limits on nifedipine XL 30mg daily (dose in PM). If her BP is noted to rise today, will consider BID dosing or increased dose QPM. Plan to treat sustained SRBP with short acting anti-hypertensive medications as needed. 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 Encourage routine care and lactating support. Dispo: Inpatient tonight. Consider dismissal to home after 24 hours off Magnesium tomorrow (afternoon/evening of POD2) vs POD3. Plan day: 1
[2025-04-05] MEDS: DOCUSATE SODIUM 100 MG CAPSULE PO (08:48)
[2025-04-05] MEDS: MAGNESIUM Infusion 40 GM/1,000 ML IV.SOLN IVPB (09:53)
--- NOTE | 2025-04-05 11:56 | PM.ANPOST ---
Post Anesthesia Note Post Anesthesia Note Patient seen: Inpatient Respiratory Status: adequate Cardiovascular Status: adequate Mental Status: baseline Pain: adequate Temp: baseline Anesthetic awareness: no Complications: none Follow care: none
[2025-04-05] MEDS: LANOLIN CREAM 1 APPLIC TOPICAL (14:53)
[2025-04-05 16:15] LABS: Rapid Plasma Reagin (RPR) Non Reactive (Non Reactive)
[2025-04-05] MEDS: NIFEdipine ER 30 MG TAB PO (17:37)
[2025-04-06 00:22] VITALS: BP 134/83; PULSE 90; RESP 20; O2SAT 95
[2025-04-06 04:00] VITALS: BP 120/79; PULSE 86; RESP 16; TEMP 36.8; O2SAT 94
[2025-04-06] MEDS: IBUPROFEN 600 MG TABLET PO (04:18)
--- NOTE | 2025-04-06 07:05 | P.DS_ITS ---
DS: Providers Provider Time Seen by Provider: 07:05 Date Seen: 04/06/25 Date of admission: 04/03/25 18:05 Primary care physician: Not a Local Provider Admitting Clinician: Bea Linares MD Attending Physician on discharge: Bea Linares MD Date of Discharge: 04/06/25 DS: Diagnosis Discharge Diagnosis (1) GDM, class A2: Status: Acute (2) Preeclampsia: Status: Acute Problem details: with severe features based on elevated ALT with elevated BP (3) Advanced maternal age (AMA), 40 years or greater: Status: Acute Exam Narrative: Exam Narrative: Physical exam: General: No acute distress Psych: Alert and oriented x4, full affect HEENT: Normocephalic, atraumatic Heart: Regular rate and rhythm, no murmur rub or gallop Lungs: Clear to auscultation bilaterally Abdomen: Soft, no tenderness, rebound, or guarding. Fundus palpates firm at 1 below umbilicus. Lower extremities: + 1 bilateral lower extremity edema Pelvic exam: Scant lochia on pad Const: Vital Signs, click to edit/add: Vital Signs - 24 hr 04/05/25 08:30 04/05/25 11:15 04/05/25 12:46 Temperature 98.3 F 98.4 F Pulse Rate [Pulse Oximeter] 87 88 Respiratory Rate 18 16 Blood Pressure [Ri ght Arm] 139/88 126/77 131/84 Pulse Oximetry 96 96 Oxygen Delivery Me thod Room Air Room Air 04/05/25 17:39 04/05/25 20:00 04/06/25 00:22 Temperature 98.6 F Pulse Rate [Pulse Oximeter] 88 96 90 Respiratory Rate 28 H 20 Blood Pressure [Ri ght Arm] 138/89 115/76 134/83 Pulse Oximetry 96 94 95 Oxygen Delivery Me thod Room Air Room Air Room Air 04/06/25 04:00 Temperature 98.2 F Pulse Rate [Pulse Oximeter] 86 Respiratory Rate 16 Blood Pressure [Ri ght Arm] 120/79 Pulse Oximetry 94 Oxygen Delivery Me thod Room Air OB - DS: Summary Hospital Course Hospital Course: The patient is a 39 year old G5, now P5005 who was at 36.0 weeks gestation on 04/03/25 for induction of labor due to pre-eclampsia with severe features. She had an uncomplicated vaginal delivery. She delivered a viable male . She is . the patient has done well. She is s/p 24 hours of magnesium sulfate. Her BP overnight were all within normal limits on Nifedipine XL 30 mg QD. Overnight patient had no complaint. Her pain is well controlled on oral pain medications. She is tolerating a regular. She has passed flatus. She is ambulating without difficulty. Lochia is scant. She is urinating without arellano. Patient denies chest pain, SOB, n/v, headache, RUQ pain, vision changes, dizziness. Pre-eclampsia labs on 04/05: Plt 285, Cr 0.5, AST 30 (38) and ALT 27 (33) [place] Gender: Male Time Spent with Patient Time attestation: Total time spent providing and/or coordinating discharge services: Discharge Plan Discharge Disposition: Home, Self-Care Date of Admission: 04/03/25 18:05 Primary Care Provider: Provider,Not a Local Condition: Stable Anticipated Discharge Date/Time: 04/06/25 08:18 Discharge Medications: New Lanolin (HPA) 100 % Cream 1 applic topical Q1H PRNQty: 21 0RF nifedipine 30 mg Tablet Extended Release 30 mg PO Q24H 30 Days Qty: 30 0RF Continued DHA 200 mg capsule 200 mg PO DAILY metronidazole 0.75 % gel 1 applic topical BID Discontinued (DME) blood-glucose meter [Accu-Chek Guide Me Glucose Mtr] Misc See Rx Instructions .ROUTE BID Qty: 1 Rx Instructions: As directed (DME) Accu-Chek Guide test strips Strip See Rx Instructions .ROUTE DAILY Qty: 10 Rx Instructions: As directed (DME) lancets [Accu-Chek Softclix Lancets] Misc See Rx Instructions .ROUTE BID Qty: 100 Rx Instructions: As directed (DME) insulin syringe-needle U-100 [Sure Comfort Insulin Syringe] 1 mL 30 gauge x 5/16 syringe See Rx Instructions .ROUTE .MEDSUPPLY Qty: 100 3RF Rx Instructions: As directed alcohol swabs [Alcohol Pads] Pads, Medicated 2 pad topical DAILY Qty: 100 1RF (DME) lancets Misc See Rx Instructions .MEDSUPPLY Qty: 200 3RF Rx Instructions: Test blood sugar 4 times daily. (DME) Test Strips Misc See Rx Instructions .MEDSUPPLY Qty: 200 3RF Rx Instructions: Test blood sugar 4 times daily. Humulin N NPH U-100 Insulin 100 unit/mL suspension 14 unit subcut .hs Discharge Orders: Discharge Order (Routine); Ordered 04/06/25 Ordered By: Bea Linares Patient Education: Preeclampsia and Eclampsia After Delivery (GEN) Additional Instructions: Discharge instructions were reviewed with the patient including signs and symptoms of infection and home going medications. Lifting Restrictions: 20 pounds for [address] while taking narcotic pain medication: Approximately 1 week. Off Work or School for 6 weeks. Nothing vaginally for 6 weeks Symptoms to report to doctor: -Bleeding that saturates more than one pad per hour ?-Passing clots larger than the size of a golf ball ?-Pain not relieved by prescribed medication ?-Fever above 100.4 degrees Fahrenheit ?-A foul vaginal odor ?-Difficulty in emotions, mood and functions ?-Thoughts of hurting yourself and/or ?-Painful, reddened area in your breast ?-Any drainage, redness or tenderness in your IV/epidural site ?-Severe headache that doesn't improve after taking medications ?-Changes in vision, including temporary loss of vision, blurred vision, and/or light sensitivity ?-Upper abdominal pain (usually under ribs on the right side) ?-Decrease in urination or painful, frequent urinating ?-Chest pain ?-Shortness of breath ?-Tenderness or pain with redness and/swelling in the calf(s) of your leg [facility] a [facility]: * 1 week blood pressure check (04/09 or Tuesday 04/10) * 2 week visit: Answer concerns for infant care, screen for anxiety/depression. * 6 week visit: Annual exam. consultation services are available to all mothers and babies for the first year after delivery.? To make an appointment, please call [phone]. Follow Up Appointments: Provider,Not a Local [Primary Care Provider, Family Practice] Forms: [employer] Info Instructions
[2025-04-06 09:15] VITALS: BP 148/89; PULSE 85; RESP 18; TEMP 36.9; O2SAT 95
[2025-04-06 09:54] VITALS: BP 138/84; PULSE 87
[2025-04-06] MEDS: DOCUSATE SODIUM 100 MG CAPSULE PO (09:56)
[2025-04-06 12:55] VITALS: BP 131/83; PULSE 79; RESP 18; TEMP 36.8; O2SAT 96
[2025-04-06] MEDS: NIFEdipine ER 30 MG TAB PO (16:28)
[2025-04-06 16:39] VITALS: BP 121/77; PULSE 80; RESP 24; TEMP 36.8; O2SAT 94
== END 2025-04-06 17:19 | disposition home or self-care (01) | DRG 560 ==
PROVIDERS: Obstetrics & Gynecology; Admitting Provider Obstetrics & Gynecology; Visit Provider Obstetrics & Gynecology
DX: O24.424 Gestational diabetes mellitus in childbirth, insulin controlled (principal); O14.14 Severe pre-eclampsia complicating childbirth; O99.824 Streptococcus B carrier state complicating childbirth; O77.0 Labor and delivery complicated by meconium in amniotic fluid; I95.89 Other hypotension; O99.214 Obesity complicating childbirth; Z3A.36 36 weeks gestation of pregnancy; Z37.0 Single live birth; Z86.59 Personal history of other mental and behavioral disorders
CPT/HCPCS: 01967; 36415; 76819; 82565; 82570; 82962; 83735; 84156; 84450; 84460; 84520; 85027; 86592; 86850; 86900; 86901; 88307; A9270; J0290; J2270; J2795; J3010; J3475; J7120

== ENCOUNTER 2025-04-10 11:14 | Outpatient (CLI) | payer OTHER, SELFPAY ==
--- NOTE | 2025-04-10 14:40 | W.PM.LAC.MC ---
Consult Note - Mom Date of Visit Date of visit: 04/10/25 Reason for consultation: Assistance Needed, Low Milk Supply (milk supply issue) and Other ( delivery at 36+2) Visit Code: Visit Patient's Information Phone number: [phone] Para: 5 Allergies No Known Drug Allergies Allergy (Verified 04/10/25 10:45) Mother's Medical History: Medical History (Updated 04/08/25 @ 00:01 by Background [place]) growth restriction Anxiety and depression ?F41.9 - Anxiety disorder, unspecified (ICD-10) ?F32.A - Depression, unspecified (ICD-10) Delivery Information Delivery type: Vaginal Gestational Age: 36+2 Gestational Weight For Age: AGA Weight: 2.975 kg Discharge Weight: 2.646 kg Percentage weight loss: 11.1 Baby's Information Baby's Age at Visit: 6 days Baby's Provider or Clinic: [facility] Jaundice: No Past Experience Past Experience: Yes (Breastfed her 4 other children without complications) Current Frequency of Day Feedings: every 3 hours, hard to wake for feedings Frequency of Night Feedings: same Both Breasts: Yes Suck: intermittently strong but not able to maintain latch for full feeding Latch: needing shield, still very sleepy Length of Time: 10-15 min ea side Pumping Pumping: Yes Quantity Pumped: 50-60 ml ea pumping every 3 hours, using a Spectra pump Supplementing EBM Supplement: Yes (taking 50 ml after , but it's a struggle to keep baby awake ) Baby Elimination Number of Wet Diapers a Day: ea feeding Number of BM a Day: 6+/day Breast/Nipple Condition Breast Information: Breasts are symmetrical with rounded lower quadrants, intramammary distance is less than 1.5 inches. No erythema. Nipples are supple, everted prior to feeding. Breast Shape: Round Engorgement: No Maternal Nipple Condition - Left: Common Nipple Maternal Nipple Condition - Right: Common Nipple Sore Nipples: No Baby Assessment Skin: Normal Tongue/frenulum: Normal/elastic Palate: Average Lips: Relaxed and Symmetrical Jaw Alignment: Symmetrical Mucosa: [place], moist Onsite Observation Pre-Feed weight: 2.668 kg (up 8 gm from clinic visit 2 days ago) Post-Feed weight: 2.668 kg Milk Transferred (mL): 0 Position: Cross cradle Attachment/latch-on achieved: Easily and With nipple shield Suck pattern: Extended rest phase, lots of stimulation to keep baby nursing Swallow: None (unless using SNS at the breast) Behavior following feed: Relaxed, sleepy and Other (finished feeding with SNS via finger feeding) Pre-Nursing Left Nipple: Within Normal Limits Pre-Nursing Right Nipple: Within Normal Limits Post-Nursing Left Nipple: Within Normal Limits Post-Nursing Right Nipple: Within Normal Limits Assessments/Interventions Assessments/Interventions: mom currently pumping with a Spectra pump Getting 50-60ml most pumps, not quite what he needs they have Kendamil formula at home to use if needed; will use to fortify EBM for [address] Duran Education provided: Supply/demand nature of milk supply, Need for frequent stimulation/milk removal, Hand expression, Alternative feeding methods (SNS, cup, finger feeding, bottling) (bottle nipple options), Pumping for milk management and Milk collection, storage Handouts Provided: Paced bottle feeding Fortifying Breast milk with infant formula to 22kcal per Dr. Estrada Feeding Plan: Discussed mom renting a hospital grade pump for pumping due to prematurity to help establish supply as baby is showing he needs more help with feedings Expect this may continue for 3-4 weeks until he gets closer to or surpasses his actual due date Offer every other feeding to keep accustomed to the breast, with or without nipple shield as this is practice for him; and he also needs to conserve energy for growth Skin to skin to help with supply Mom to pump every 3 hours, recommend a hospital grade pump Recommend one Power Pump session a day if able, AM is best due to higher prolactin levels at that time Food/fluids/rest for mom discussed Follow-Up Suggested follow up: Appointment as needed (scheduled for 04/21 to follow up milk supply and baby's ability to transfer milk) Recommend baby be seen by provider for:: weight check in 3 days Recommend mom be seen by provider for:: 2 week PP check Time Spent Time spent with patient (min): 100 (reviewing EMR and face to face with patient, and ) Meds Home Medications and Allergies Home Medications ?Medication ?Instructions ?Recorded ?Confirmed ?Type docosahexaenoic acid 200 mg 200 mg PO DAILY 03/04/25 04/10/25 History capsule ( DHA) metronidazole 0.75 % topical gel 1 applic topical BID 03/04/25 04/10/25 History nifedipine 30 mg tablet,extended 30 mg PO Q24H 30 days #30 tabs 04/06/25 04/10/25 Rx release Allergies Allergy/AdvReac Type Severity Reaction Status Date / Time No Known Drug Allergies Allergy Verified 04/10/25 10:45
== END 2025-04-10 11:15 | disposition home or self-care (01) ==
LOC: OB LAC 11:17
PROVIDERS: Visit Provider Obstetrics & Gynecology
DX: Z39.1 Encounter for care and examination of lactating mother (principal)
CPT/HCPCS: G0463

== ENCOUNTER 2025-04-21 11:04 | Outpatient (CLI) | payer OTHER, SELFPAY ==
--- OUTSIDE RECORDS SUMMARY | 2012-05-14 04:00 | XMS_ITS | Continuity of Care Document ---
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 [address], [place], [place], [id number] , [place]. tel:[phone] Referring Provider: EVERARDO VASQUEZ, [address], [place], [address]. tel:[phone] Family History Family Member Type Diagnosis Age At Onset No Information Payers Payer name Insurance type Covered republican ID Nic lincoln(s) [facility] [id number] [facility] [id number] Social History Type Description Quantity Date Captured Comments Sex Female Smoking Status No Information Chief Complaint And Reason For Visit No Information History Of Present Illness Encounter Date Complaint History Of Prese nt Illness No Information Instructions Date Instruction Additional Infor mation No Information Assessments Type Assessment Date No Information
--- OUTSIDE RECORDS SUMMARY | 2025-03-20 23:29 | XMS_ITS | Encounter Summary ---
Author Organization [facility] Address [address] [place] [address] Care Team Providers Care Director Of Direct Marketing Name Role Phone Whitney Huber APRN C.N.P. Primary Care [facility] Reason for Referral * Outpatient (Routine) - Closed Specialty Diagnoses / Procedures Referred By Mickie sow Referred To Contact Diagnoses Preeclampsia (HCC) 34 Weeks Gestation (HCC) Procedures nonstress test - muniz Gilma Jaramillo M.D. [address] [place] [address] Phone: tel: fax: [facility] Referral ID Status Reason Start Date Expiration Date Visits Re quested Visits Authorized [id number] Closed 03/24/2025 06/24/2026 1 1 * Outpatient (Routine) - Closed Specialty Diagnoses / Procedures Referred By Mickie sow Referred To Contact Obstetrics and Gynecology Gilma Jaramillo M.D. [address] [place] [address] Phone: tel: fax: [facility] Referral ID Status Reason Start Date Expiration Date Visits Re quested Visits Authorized [id number] Closed 03/24/2025 09/23/2026 [address] Moreira on following labwork Reason for Visit * Auth/Cert (Routine) Specialty Diagnoses / Procedures Referred By Contac t Referred To Contact Diagnoses 34 Weeks Gestation (HCC) Procedures DIRECT INPT Referral ID Status Reason Start Date Expiration Date Visits Re quested Visits Authorized [id number] 1 1 Encounter Details Date Type Department Care Team (Latest Contact Info) Description 03/20/2025 11:29 PM CDT - 03/24/2025 1:06 PM CDT Hospital Encounter [facility], [facility], Third Floor [address] [place] [address] Jolene Brambila M.D. [address] [place] [address] Deepa Dorman M.D. [address] [place] [address] Jairo Olivares M.D. [address] [place] [phone] Preeclampsia (HCC) (Primary Dx); 34 Weeks Gestation (HCC) Discharge Disposition: Home or Self Care Social History Tobacco Use Types Packs/Day Years Used Date Smoking Tobacco: Never Smokeless Tobacco: Never Alcohol Use Standard Drinks/Week Comments Not Currently 0 (1 standard drink = 0.6 oz pur e alcohol) rarely [facility] Utilities Answer Date Recorded In the past 12 months has [facility] [employer], oil, or water [email or web address] threatened to shut off services in your home? No 03/21/2025 Humiliation, Afraid, Rape, and Kick questionnair e Answer Date Recorded Within the last year, have y ou been afraid of your partner or ex-partner? No 03/21/2025 Within the last year, have y ou been humiliated or emotionally abused in other ways by your partner or ex-partner? No Within the last year, have y ou been kicked, hit, slapped, or otherwise physically hurt by your partner or ex-partner? No 03/21/2025 Within the last year, have y ou been raped or forced to have any kind of sexual activity by your partner or ex-partner? No 03/21/2025 Hunger Vital Sign Answer Date Recorded Within the past 12 months, y ou worried that your food would run out before you got the money to buy more. Never true 03/21/20 25 Within the past 12 months, t he food you bought just didn't last and you didn't have money to get more. Never true 03/21/2025 PRAPARE - Transportation Answer Date Re corded In the past 12 months, has l ack of transportation kept you from medical appointments or from getting medications? No 02/27 In the past 12 months, has l ack of transportation kept you from meetings, work, or from getting things needed for daily living? No 03/21/2025 Depression Answer Date Recor ded PHQ-9 Total Score (max 27) 6 01/07 Housing Stability Answer Date Recorded What is your living situation today? Patient dec lined 03/21/2025 Education Answer Date Recorded What is the highest level of school you have completed or the highest degree you have received? 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 Not on file Not on file Not on file documented as of this encounter Last Filed Vital Signs Vital Sign Reading Time Taken Comments Blood Pressure 132/86 03/24/2025 12:54 PM CDT Pulse 77 03/23/2025 9:03 PM CDT Temperature 36.8 C (98.2 F) 03/24/2025 12:54 PM CDT Respiratory Rate 18 03/24/2025 12:54 PM CDT Oxygen Saturation 100% 03/24/2025 12:54 PM CDT Inhaled Oxygen Concentration - - Weight 125 kg (274 lb 11.1 oz) 03/24/2025 8:26 A M CDT Height 165 cm (5' 4.96) 03/21/2025 12:25 AM CDT Body Mass Index 45.77 03/21/2025 12:25 AM CDT documented in this encounter Discharge Summaries * Gilma Jaramillo M.D. - 03/24/2025 9:27 AM CDT DISCHARGE SUMMARY BRIEF OVERVIEW Hospital: [facility] Discharge Provider: Jairo Olivares M.D. Primary Team: [facility] Maternal and Medicine Primary Care Providers: Whitney Huber APRN, C.N.P. (General) [address] [facility] [address] Primary Care Provider Primary Care Provider Admission Date: 03/20/2025 Discharge Date: 03/24/25 PRINCIPAL DIAGNOSIS Preeclampsia (HCC) SECONDARY DIAGNOSES Principal Problem: Preeclampsia (HCC) Active Problems: Complication Morbid Obesity Body Mass Index Greater Than 40 (HCC) Multigravida Advanced Maternal Age Affecting Management (HCC) Diabetes Mellitus Gestational (HCC) 34 Weeks Gestation ([facility]) Resolved Problems: Complication Morbid Obesity Body Mass Index Greater Than 40 (HCC) DISCHARGE DISPOSITION Home or Self Care [1] ACTIVE ISSUES REQUIRING FOLLOW UP - Orders placed for outpatient visit, HELLP labs, and NST this with Dr. Moreira - Plan for outpatient follow-up two times/week leading up to delivery TEST RESULTS PENDING AT DISCHARGE Pending Labs Order Current Status Grp B Strep (S. agalactiae) Culture Preliminary result DETAILS OF HOSPITAL STAY REASON FOR ADMISSION 34 Weeks Gestation (HCC) HOSPITAL COURSE Jennifer Mariano is a 39 year old who was transferred from [place] at 34w1d gestation for mildrange blood pressures and elevated LFTs in the 70s. PC ratio was 0.84 at outside institution. On arrival, she reported a mild headache and repeat labs demonstrated a LFT of 76. Decision was made to proceed with betamethasone for lung maturity despite GDMA2, as postprandial glucose check was 103 with very recent initiation of GDM treatment. She received BMZ 03/21-03/22. During her hospitalization, BP remained normotensive to low MR but stable throughout admission. Asymptomatic and her LFTs stabilized before down trending. She was started on Lantus 12 units nightly for elevated blood glucose. Discussed with patient that although her condition could worsen at this time she only meets criteria for preeclampsia without severe features. Outpatient follow-up would be reasonable given her overall clinical stability. We will plan for close outpatient follow-up this with Dr. Lillie sargent further follow-up twice weekly until delivery. Blood Pressure return precautions: Check your blood pressure two times a day at home, or if you notice symptoms including headache, vision changes, right upper quadrant pain, shortness of breath, or new leg swelling. If BP>140/90, re-check in 15 minutes after resting comfortably If BP>150/100 on re-check, call the nurse or triage line to discuss If BP>160/110, call triage as you will likely need to be seen in triage or by your provider CONSULTS ORDERED DURING THIS ADMISSION IP CONSULT TO NEONATOLOGY IP CONSULT TO MATERNAL & MEDICINE CONDITION AT DISCHARGE stable Discharge instructions were provided to the patient and caregiver(s). Total time spent in discharge services today: 30 minutes. Cosigned by Jairo Olivares M.D. at 03/24/2025 9:54 AM CDT Associated attestation - Jairo Olivares M.D. - 03/24/2025 9:54 AM CDT Patient seen and evaluated by me. I reviewed the note above. I discussed the case with the M fellow (Dr. Moreira) and resident, and we agreed on a plan of care for this patient. documented in this encounter Medications at Time of Discharge aspirin [address] tablet Take 81 mg by mouth daily. blood sugar diagnostic stripsIndication s:Multigravida Advanced Maternal Age Affecting Management (HCC) 2 test daily. For blood sugar monitoring in 100 test 1 01/07/2025 6 blood-glucose meter miscIndications: Multigravida Advanced Maternal Age Affecting Management (HCC) For blood sugar monitoring in . Check twice daily 1 each 01/07/2025 insulin glargine 100 unit/mL (3 mL) pen Inject 12 Units under the skin at bedtime. Pharmacy select brand per patient insurance/prefer ence. 15 mL 3 03/24/2025 lancetsIndicatio ns:Multigravida Advanced Maternal Age Affecting Management (HCC) For blood sugar monitoring in . Check twice daily 100 each 1 01/07/2025 metroNIDAZOLE ([place]) 0.75 % gelIndications:D ermatitis Perioral Apply topically 2 (two) times a day. Apply to the area of perioral dermatitis twice daily. 45 g 01/15/2025 [id number]- FA 27 mg iron- 1 mg tablet Take 1 tablet by mouth daily. documented as of this encounter Progress Notes * Jairo Olivares M.D. - 03/24/2025 10:19 AM CDT SUBJECTIVE Jennifer Mariano is a 39 y.o. at 34w2d gestation admitted for further evaluation and inpatient extended monitoring given concern for evolving preeclampsia with severe features. Events overnight: None. Pt is feeling well this morning. She continues to be asymptomatic from a HTN perspective and deniesHA, vision changes, RUQ pain, SOB, new onset swelling. Denies contractions, leakage of fluid, vaginal bleeding. Endorses movement. OBJECTIVE BP 141/83 Pulse 77 Temp 36.8 ??C (Oral) Resp 16 Ht 165 cm Wt 125 kg LMP 07/31/2024 SpO2 100% BMI 45.77 kg/m?? General: Alert, comfortable. CV: Normal rate. Resp: Normal work of breathing on room air. Abdomen: Gravid. Extremities: No visible swelling bilateral lower extremities. DIAGNOSTICS I have reviewed the OB ultrasound(s), pelvic ultrasound(s), most recent labs, and non-stress test(s) ASSESSMENT / PLAN # 34 Weeks Gestation # AMA # Pre-eclampsia without severe features # GDMA2 Jennifer Mariano is a 39 y.o. at 34w4d gestation admitted for further evaluation and inpatient extended monitoring given concern for evolving preeclampsia. At this time, her BP remain well controlled without medications (normotensive to low MRBP) and her HELLP labs have been down-trending with ALT 66 (68) and AST 33 (35). She remains asymptomatic. Of note, sFLT 96. We have thoroughly discussed the diagnosis of pre-eclampsia and our concern that her condition may progress towards pre-eclampsia with severe features. However, at this time her BP is well controlled, labs are improving, and she is asymptomatic. Given this, we do feel she would be an appropriate candidate for discharge with close outpatient follow-up this including NST, HELLP labs, and clinic visit. We will plan for twice weekly follow-up until delivery. Growth US scheduled for later this morning. PLAN DISPOSITION - Plan for discharge later today provided BP remains stable and she does not develop any new symptoms VITALS - Vitals per unit protocol. Monitor blood pressure trend. Patient has not had any severe range hypertension. ANTEPARTUM SURVEILLANCE - Daily nonstress tests and as clinically indicated. DIET - Gestational diabetic diet. LABS - Noted normal AST 33 U/L and decrease in ALT 66 U/L this morning. - Noted elevated sFlt-PlGF ratio 96 - GBS pending - Glucose monitoring fasting and 2 hours postprandial (anticipate increase with administration of betamethasone) INSULIN - Started on insulin glargine 12 units QHS this admission CONSULTS - Neonatology (completed) STEROIDS - BMZ 03/21 - 03/22 SEIZURE PROPHYLAXIS - IV magnesium sulfate if delivery indicated for preeclampsia with severe features. ACTIVITY - Encouraged continued ambulation. DVT PROPHYLAXIS - Encouraged continued ambulation.Compression pumps while in bed or chair. MODE OF DELIVERY - Routine OB indications TIMING OF DELIVERY - Planning on 37 weeks gestation at this time pending clinical course CONTRACEPTION - Planned condom use until vasectomy on review of records. Revisit discussion this admission. Patient verbalized understanding our discussion. All her questions were answered and her concerns were addressed. Jairo Olivares M.D. OBGYN PGY-2 Pt seen and discussed with Dr. Moreira and Dr. Olivares, [facility] store sales consultant. Senior Product Designer attestation (Drake Olivares) Patient seen and evaluated by me. I reviewed the note above. I discussed the case with the [facility] fellow (Dr. Moreira) and resident, and we agreed on a plan of care for this patient. * Danielle Vega Pharm.D., R.Ph., M.P.H. - 03/24/2025 8:39 AM CDT Pharmacist Progress Note Jennifer Mariano is a 39 y.o. F admitted at 34w0d on 03/20/2025 for preeclampsia Relevant PMH: GDMA2 AMA OBJECTIVE Home medications: Resumed appropriately DVT Prophylaxis: BMI 45; SCDs and ambulation -- LMWH once PP Rh Status: positive GBS Status: positive (03/21) EFW: 1900g (03/05) ASSESSMENT / PLAN # Preeclampsia without SF Has not met criteria for preeclampsia w/ SF BP mild range past 24hrs No anti-HTN at this time HELLP labs WNL ALT = 83 on 03/21; now 66 Could consider discontinuing ASA given preeclampsia diagnosis # BMZ 03/21 and 03/22 # GDMA2 BG currently stable Continue insuline glargine 12 units QHS and insulin aspart SS # BMI 45 Plan for VTE PPX with LMWH once PP Currently has SCDs ordered and ambulating Vaccines: COVID: unknown Influenza: unknown Tdap: doesn't appear patient has received -- recommend giving now MMR: immune Varicella: immune HepB: nonimmune -- no vaccines on file -- recommend PP Changes to medications anticipated at discharge: TBD Dispo planning: pending BP management Danielle Vega Pharm.D., R.Ph., M.P.H. The recommendations contained in this note are based on information available at the time of documentation and may not reflect changes in the care plan discussed after the time of signing. * Jairo Olivares M.D. - 03/24/2025 6:38 AM CDT SUBJECTIVE Jennifer Mariano is a 39 y.o. at 34w2d gestation admitted for further evaluation and inpatient extended monitoring given concern for evolving preeclampsia with severe features. Events overnight: None. Pt is feeling well this morning. She continues to be asymptomatic from a HTN perspective and deniesHA, vision changes, RUQ pain, SOB, new onset swelling. Denies contractions, leakage of fluid, vaginal bleeding. Endorses movement. OBJECTIVE BP 139/76 Pulse 77 Temp 36.8 ??C (Oral) Resp 16 Ht 165 cm Wt 123 kg LMP 07/31/2024 SpO2 100% BMI 45.18 kg/m?? General: Alert, comfortable. CV: Normal rate. Resp: Normal work of breathing on room air. Abdomen: Gravid. Extremities: No visible swelling bilateral lower extremities. DIAGNOSTICS I have reviewed the OB ultrasound(s), pelvic ultrasound(s), most recent labs, and non-stress test(s) ASSESSMENT / PLAN # 34 Weeks Gestation # AMA # Pre-eclampsia without severe features # GDMA2 Jennifer Mariano is a 39 y.o. at 34w4d gestation admitted for further evaluation and inpatient extended monitoring given concern for evolving preeclampsia. At this time, her BP remain well controlled without medications (normotensive to low MRBP) and her HELLP labs have been down-trending with ALT 66 (68) and AST 33 (35). She remains asymptomatic. Of note, sFLT 96. We have thoroughly discussed the diagnosis of pre-eclampsia and our concern that her condition may progress towards pre-eclampsia with severe features. However, at this time her BP is well controlled, labs are improving, and she is asymptomatic. Given this, we do feel she would be an appropriate candidate for discharge with close outpatient follow-up this including NST, HELLP labs, and clinic visit. We will plan for twice weekly follow-up until delivery. Growth US scheduled for later this morning. PLAN DISPOSITION - Plan for discharge later today provided BP remains stable and she does not develop any new symptoms VITALS - Vitals per unit protocol. Monitor blood pressure trend. Patient has not had any severe range hypertension. ANTEPARTUM SURVEILLANCE - Daily nonstress tests and as clinically indicated. DIET - Gestational diabetic diet. LABS - Noted normal AST 33 U/L and decrease in ALT 66 U/L this morning. - Noted elevated sFlt-PlGF ratio 96 - GBS pending - Glucose monitoring fasting and 2 hours postprandial (anticipate increase with administration of betamethasone) INSULIN - Started on insulin glargine 12 units QHS this admission CONSULTS - Neonatology (completed) STEROIDS - BMZ 03/21 - 03/22 SEIZURE PROPHYLAXIS - IV magnesium sulfate if delivery indicated for preeclampsia with severe features. ACTIVITY - Encouraged continued ambulation. DVT PROPHYLAXIS - Encouraged continued ambulation.Compression pumps while in bed or chair. MODE OF DELIVERY - Routine OB indications TIMING OF DELIVERY - Planning on 37 weeks gestation at this time pending clinical course CONTRACEPTION - Planned condom use until vasectomy on review of records. Revisit discussion this admission. Patient verbalized understanding our discussion. All her questions were answered and her concerns were addressed. Gilma Jaramillo M.D. OBGYN PGY-2 Pt seen and discussed with Dr. Moreira and Dr. Olivares, [facility] store sales consultant. * Deepa Dorman M.D. - 03/23/2025 9:02 AM CDT SUBJECTIVE Jennifer Mariano is a 39 y.o. at 34w3d gestation admitted for further evaluation and inpatient extended monitoring given concern for evolving preeclampsia with severe features. Events overnight: None. Since admission, she has had mostly mild to moderate range hypertension. No severe blood pressures reported. She denies headache, vision changes or upper abdominal pain. Notable has been an increase in liver transaminases with no other known etiology, still below threshold to be considered a severe feature (ALT 83 and AST 54 U/L) but concerning for a process in evolution. She reports good movement. She denies uterine contractions, leakage of fluid or vaginal bleeding. I have reviewed and updated the following: allergies, current medications, prior to admission medications, family history, medical history, social history, surgical history, and problem list. OBJECTIVE BP 137/77 Pulse 90 Temp 36.5 ??C Resp 16 Ht 165 cm Wt 123 kg LMP 07/31/2024 SpO2 100% BMI 45.18 kg/m?? General: Alert, comfortable. Abdomen: Gravid, soft and nontender. Uterus enlarged and nontender. NST: Not yet done this morning. DIAGNOSTICS I have reviewed the OB ultrasound(s), pelvic ultrasound(s), most recent labs, and non-stress test(s) ASSESSMENT / PLAN Intrauterine at 34w3d gestation Preeclampsia without severe features, concern for evolving severe features (below threshold elevated liver transaminases) Gestational diabetes Advanced maternal age Obesity Class 3 BMI 45 kg/m2 Jennifer Mariano is a 39 y.o. at 34w3d gestation admitted for further evaluation and inpatient extended monitoring given concern for evolving preeclampsia with severe features. Since admission, she has had mostly mild to moderate range hypertension. No severe blood pressures reported. She denies headache, vision changes or upper abdominal pain. Notable has been an increase in liver transaminases with no other known etiology, still below threshold to be considered a severe feature (ALT 83 and AST 54 U/L, most recently normal AST 35 U/L and decrease in ALT 68 U/L this morning) but concerning for a process in evolution. Diagnosis of preeclampsia without severe features was reviewed in detail, including concern for progression to severe preeclampsia. Management plan was discussed with patient in agreement. No indication for delivery at this time but patient has been counselled regarding need to proceed with a medically indicated late delivery if she meets criteria for preeclampsia with severe features. PLAN DISPOSITION - Continue further evaluation and inpatient extended monitoring given concern for evolving preeclampsia with severe features. Patient has not yet met criteria for severe preeclampsia at this time but given concern for a process in evolution, recommend inpatient admission for now until severe preeclampsia is confirmed or excluded. If she remains stable, without severe preeclampsia diagnosis, may consider discharge and close outpatient expectant management. VITALS - Vitals per unit protocol. Monitor blood pressure trend. Patient has not had any severe range hypertension. ANTEPARTUM SURVEILLANCE - Daily nonstress tests and as clinically indicated. DIET - Gestational diabetic diet. LABS - Noted normal AST 35 U/L and decrease in ALT 68 U/L this morning. - Repeat CBC, comprehensive metabolic panel tomorrow AM. - Noted elevated sFlt-PlGF ratio 96 - GBS pending - Glucose monitoring fasting and 2 hours postprandial (anticipate increase with administration of betamethasone) INSULIN - Increase insulin glargine to 12 units at bedtime. CONSULTS - Neonatology STEROIDS - BMZ 03/21 - 03/22 SEIZURE PROPHYLAXIS - IV magnesium sulfate if delivery indicated for preeclampsia with severe features. ACTIVITY - Encouraged continued ambulation. DVT PROPHYLAXIS - Encouraged continued ambulation.Compression pumps while in bed or chair. MODE OF DELIVERY - Mode of delivery will be based on standard obstetric indications. US for presentation once in labor to confirm cephalic. TIMING OF DELIVERY - Timing of delivery will be based on maternal and status. Proceed with delivery if patient meets criteria for preeclampsia with severe features CONTRACEPTION - Planned condom use until vasectomy on review of records. Revisit discussion this admission. Patient verbalized understanding our discussion. All her questions were answered and her concerns were addressed. A total of 25 minutes was spent in care of this patient. Deepa Dorman M.D. Maternal Medicine * Deepa Dorman M.D. - 03/22/2025 10:16 AM CDT SUBJECTIVE Jennifer Mariano is a 39 y.o. at 34w2d gestation admitted for further evaluation and inpatient extended monitoring given concern for evolving preeclampsia with severe features. Events overnight: None. Since admission, she has had mostly mild to moderate range hypertension. No severe blood pressures reported. She denies headache, vision changes or upper abdominal pain. Notable has been an increase in liver transaminases with no other known etiology, still below threshold to be considered a severe feature (ALT 83 and AST 54 U/L) but concerning for a process in evolution. She reports good movement. She denies uterine contractions, leakage of fluid or vaginal bleeding. I have reviewed and updated the following: allergies, current medications, prior to admission medications, family history, medical history, social history, surgical history, and problem list. OBJECTIVE BP 135/68 Pulse 90 Temp 37 ??C (Oral) Resp 17 Ht 165 cm Wt 123 kg LMP 07/31/2024 [id number]% BMI 45.18 kg/m?? General: Alert, comfortable. Abdomen: Gravid, soft and nontender. Uterus enlarged and nontender. NST: Not yet done this morning. DIAGNOSTICS I have reviewed the OB ultrasound(s), pelvic ultrasound(s), most recent labs, and non-stress test(s) ASSESSMENT / PLAN Intrauterine at 34w2d gestation Preeclampsia without severe features, concern for evolving severe features (blow threshold elevatedliver transaminases) Gestational diabetes Advanced maternal age Obesity Class 3 BMI 45 kg/m2 Jennifer Mariano is a 39 y.o. at 34w2d gestation admitted for further evaluation and inpatient extended monitoring given concern for evolving preeclampsia with severe features. Since admission, she has had mostly mild to moderate range hypertension. No severe blood pressures reported. She denies headache, vision changes or upper abdominal pain. Notable has been an increase in liver transaminases with no other known etiology, still below threshold to be considered a severe feature (ALT 83 and AST 54 U/L) but concerning for a process in evolution. Diagnosis of preeclampsia without severe features was reviewed in detail, including concern for progression to severe preeclampsia. Management plan was discussed with patient in agreement. No indication for delivery at this time but patient has been counselled regarding need to proceed with a medically indicated late delivery if she meets criteria for preeclampsia with severe features. PLAN DISPOSITION - Continue further evaluation and inpatient extended monitoring given concern for evolving preeclampsia with severe features. Patient has not yet met criteria for severe preeclampsia at this time but given concern for a process in evolution, recommend inpatient admission for now until severe preeclampsia is confirmed or excluded. VITALS - Vitals per unit protocol. Monitor blood pressure trend. Patient has not had any severe range hypertension. ANTEPARTUM SURVEILLANCE - Daily nonstress tests and as clinically indicated. DIET - Gestational diabetic diet. LABS - Noted normal AST 40 U/L and decrease in ALT 72 U/L this morning. - Repeat CBC, comprehensive metabolic panel tomorrow AM. - Noted elevated sFlt-PlGF ratio 96 - GBS pending - Glucose monitoring fasting and 2 hours postprandial (anticipate increase with administration of betamethasone) INSULIN - Was prescribed insulin on outpatient basis but was never started. Will monitor glucose values while inpatient but will likely need to start insulin. CONSULTS - Neonatology STEROIDS - BMZ 03/21 - 03/22 SEIZURE PROPHYLAXIS - IV magnesium sulfate if delivery indicated for preeclampsia with severe features. ACTIVITY - Encouraged continued ambulation. DVT PROPHYLAXIS - Encouraged continued ambulation.Compression pumps while in bed or chair. MODE OF DELIVERY - Mode of delivery will be based on standard obstetric indications. US for presentation once in labor to confirm cephalic. TIMING OF DELIVERY - Timing of delivery will be based on maternal and status. Proceed with delivery if patient meets criteria for preeclampsia with severe features CONTRACEPTION - Planned condom use until vasectomy on review of records. Revisit discussion this admission. Patient verbalized understanding our discussion. All her questions were answered and her concerns were addressed. A total of 25 minutes was spent in care of this patient. Kimberlee Moreira M.D. Deepa Dorman M.D. Maternal Medicine * Mana Monroy M.D. - 03/21/2025 4:20 AM CDT OB OVERNIGHT UPDATE NOTE Jennifer Mariano is a 39 year old at 34w1d who was transferred overnight for preeclampsia withoutsevere features, with high mild range blood pressures and elevated ALT (not yet double upper limit)at outside hospital yesterday. She has been observed on labor and delivery for 4 hours. Her initial blood pressure was in the highmild range, but since then she has been in the 130s- 140s/60s to 80s. She initially had a mild headache that she says has not completely resolved with Tylenol had some rest. HELLP labs on arrival were notable for normal platelets of 369, ALT of 76 (on review of outside records, maximum ALT was 82). She is off of magnesium sulfate, and given mild range blood pressures, is a candidate for transfer to antepartum at this time. - Betamethasone 03/21 to 03/22 - Blood pressure checks per unit routine - Repeat HELLP labs at 6:00 a.m. - GBS collected and pending - No antihypertensives currently - Postprandial glucose checks and sliding scale insulin Mana Monroy MD Obstetrics and Gynecology documented in this encounter H&P Notes * Sabina Carson M.D. - 03/20/2025 11:59 PM CDT SUBJECTIVE REASON FOR ADMISSION Jennifer Mariano is a 39 y.o. with an Estimated Date of Delivery: 05/01/25. Gestational age is 34w0d determined by first trimester US. She is presenting as a transfer for preeclampsia with concern for preeclampsia with severe features. Patient presented to clinic 03/20 am for a blood pressure check after an elevated blood pressure wasnoted at a clinic visit on 03/19. She received extended monitoring in OB triage and had elevated blood pressures of 140s/70-90s. Laboratory evaluation was significant for AST 56, ALT 82 and UPC 0.82. Baseline HELLP labs in 08/2024 and UPC in 11/2024 were within normal limits with UPC 0.14. She was diagnosed with preeclampsia and transferred to [place] for further care. She was started on magnesium for seizure prophylaxis due to concern for evolving preeclampsia with severe features and betamethasone was deferred. GBS swab obtained and pending. On arrival, she notes a mild headache 2-3/10 in severity that she attributes to not having caffeinethis morning. She denies vision change, chest pain, shortness of breath, right upper quadrant pain.She reports normal movement and denies contractions, vaginal bleeding and loss of fluid. 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 She has a history of short 2nd stages. All of her deliveries were uncomplicated. OBJECTIVE VITAL SIGNS Temperature: [36.8 ??C] 36.8 ??C Heart Rate: [93] 93 Resp Rate: [16] 16 Blood Pressure: (156)/(81) 156/81 SpO2: [97 %] 97 % Pulse Rate: [97] 97 PHYSICAL EXAM General: Well appearing Presentation of fetus: Vertex by ultrasound. MVP 3.4cm FHTs: NST not yet reactive. Moderate variability with baseline 140. We will continue to monitor. [place]: No contractions. DIAGNOSTICS Blood Type: O POS Recent Results (from the past 24 hours) Comprehensive Metabolic Panel Collection Time: 03/20/25 11:44 PM Result Value Potassium, S 4.0 Sodium, S 137 Chloride, S 103 Bicarbonate, S 23 Anion Gap 11 BUN (Blood Urea Nitrogen), S 6 Creatinine 0.60 Estimated GFR (eGFR) >90 Calcium, Total, S 8.0 (L) Glucose, S 95 Protein, Total, S 5.8 (L) Albumin, S 3.4 (L) Aspartate Aminotransferase (AST), S 48 (H) Alkaline Phosphatase, S 136 (H) Alanine Aminotransferase (ALT), S 76 (H) Bilirubin, Total, S 0.2 CBC without Differential Collection Time: 03/20/25 11:44 PM Result Value Hemoglobin 13.9 Hematocrit 40.1 Erythrocytes 4.67 MCV 85.9 RBC Distrib Width 13.0 Platelet Count 369 Leukocytes 12.0 (H) ASSESSMENT / PLAN Patient will be admitted for monitoring in the setting of newly diagnosed preeclampsia. Patient does not meet criteria for preeclampsia with severe features. She will be admitted for further blood pressure monitoring and repeat HELLP labs in the morning. Discussed diagnosis of preeclampsia with severe features and indication for delivery after 34 weeks. #Preeclampsia - Diagnosed 03/20 with new proteinuria and mild range blood pressures - No severe range blood pressures - Patient reports mild headache, we will treat with Tylenol and monitor. Denies other symptoms of preeclampsia - HELLP labs significant for AST 48 and ALT 76, AST 56 and ALT 82 03/20 in [place] #GDMA2 - Initiated on 18U lantus Q outpatient (never started, was prescribed day before admission) - Sliding scale insulin ordered #34 weeks gestation - BMZ #1 03/21 0100. BMZ #2 scheduled - GBS pending - Plan for MFM consult in morning, will defer neonatology consult at this time Sonya Carson M.D. Patient Discussed with Dr. Brambila, OB Senior Product Designer Cosigned by oJlene Brambila M.D. at 03/23/2025 11:23 PM CDT Associated attestation - Jolene Brambila M.D. - 03/23/2025 11:23 PM CDT Jennifer Mariano was seen and examined with Dr Carson. We reviewed the pertinent history and exam findings. I agree with the assessment and plan as documented. Jolene Brambila M.D. documented in this encounter Consult Notes * Annetta Jewell APRN, C.N.P., M.S.N. - 03/21/2025 3:00 PM CDTAssociated Order(s): IP CONSULT TO NEONATOLOGY SUBJECTIVE Jennifer Mariano is a 39 y.o. who is currently 34w1d . Neonatology was asked by Obstetricsto consult Jennifer Mariano due to potential for delivery secondary to maternal hypertension. SBAR received: Yes. MATERNAL HISTORY: OB History Para Term AB Living 5 4 4 0 0 4 SAB IAB Ectopic Molar Multiple Live Births 4 # Outcome Date GA Lbr Carter/2nd Weight Sex Type Anes PTL Lv 5 Current 4 Term 06/23/19 38w3d 2360 g M Vag-Spont PATRICK 3 Term 04/26/17 39w6d 3870 g F Vag-Spont N PATRICK 2 Term 03/09/15 38w4d 3714 g M Vag-Spont EPI N PATRICK Comments: delivered 5 min after epidural 1 Term 08/20/12 38w0d 3515 g M Vag-Spont EPI N PATRICK Obstetric Comments Risk Stratification=green LABS: Lab Results Component Value Date ABO O 11/26/2018 RHTYPE POS 11/26/2018 ABSCREEN Negative 03/20/2025 RUBELLAIGG Positive 11/26/2018 SYABIGG Negative 11/26/2018 HEPBSAG Negative 09/06/2016 GRPBSTREP Positive (A) 06/11/2019 COMPLICATED BY: #1 Complication Morbid Obesity Body Mass Index Greater Than 40 (HCC) #2 Multigravida Advanced Maternal Age Affecting Management (HCC) #3 Diabetes Mellitus Gestational (HCC) #4 Preeclampsia (HCC) #5 34 Weeks Gestation (HCC) MEDICATIONS: Steroids: Yes Date: 03/21/2025 Current Outpatient Medications on File Prior to Encounter Medication Sig Dispense Refill Last Dose/Taking aspirin [address] tablet Take 81 mg by mouth daily. blood sugar diagnostic strips 2 test daily. For blood sugar monitoring in 100 test 1 blood-glucose meter [facility] For blood sugar monitoring in . Check twice daily 1 each 0 lancets For blood sugar monitoring in . Check twice daily 100 each 1 metroNIDAZOLE ([place]) 0.75 % gel Apply topically 2 (two) times a day. Apply to the area of perioral dermatitis twice daily. 45 g 0 nfcdift-Tn-caib-FA 27 mg iron- 1 mg tablet Take 1 tablet by mouth daily. ASSESSMENT / PLAN Jennifer Mariano is currently inpatient with membranes intact and Obstetric plan to expectant management. My visit with Jennifer Mariano centered on the care of her infant at 34 weeks. I started off explaining that the delivery would take place in the OR and the Team would be there to care for her infant. The baby would likely have delayed cord clamping and then be handed off to the Team and taken to the resuscitation room which is adjacent to the delivery suite. I explained her family was welcome to come with the baby. I explained that the initial focus would be on the baby's breathing and that a baby at 34 weeks should need little to no extra respiratory support. I discussed the use of CPAP, supplemental oxygen, or rarely intubation. Additionally, I explained that the most common reason a baby born at 34 weeks remains hospitalized is the baby's uncoordinated ability to feed from a bottle or breast. I explained that the infant mayinitially require a PIV for fluids and if stable would be able to work on as tolerated. Most babies require a NG tube as they mature and work on oral feedings. Discussed mother's feeding plan which is to plans to breastfeed. We did discuss the use of donor breast milk. Finally, I discussed the criteria needed for discharge. I explained that the baby would most likelybe here for 2-3 weeks depending on its ability to eat well and gain weight adequately. Overall this was a pleasant consult with Jennifer Mariano . She was receptive to the information provided and asked appropriate questions. Of note, she would like to defer erythromycin and HepatitisB vaccine, but is amiable to vitamin K administration. I told them that after delivery we would keep her updated on their baby???s condition. She did not exhibit any barriers to learning. If you or Jennifer Olson Will have any further questions please feel free to contact our service at pager [phone]. Thank you for the consult. Annetta Jewell APRN, C.N.P., M.S.N. Consult Time: 35. More than 50% of the time of this consultation was spent in [id number]-qa-[id number] counseling with the patient. * Deepa Dorman M.D. - 03/21/2025 9:50 AM CDTAssociated Order(s): IP CONSULT TO MATERNAL & MEDICINE SUBJECTIVE CHIEF COMPLAINT Preeclampsia HISTORY OF PRESENT CONDITION OB History Para Term AB Living 5 4 4 0 0 4 SAB IAB Ectopic Molar Multiple Live Births 4 # Outcome Date GA Lbr Carter/2nd Weight Sex Type Anes PTL Lv 5 Current 4 Term 06/23/19 38w3d 2.36 kg M Vag-Spont PATRICK 3 Term 04/26/17 39w6d 3.87 kg F Vag-Spont N PATRICK 2 Term 03/09/15 38w4d 3.714 kg M Vag-Spont EPI N PATRICK Comments: delivered 5 min after epidural 1 Term 08/20/12 38w0d 3.515 kg M Vag-Spont EPI N PATRICK Obstetric Comments Risk Stratification=green Jennifer Mariano is a 39 y.o. at 34w1d. Estimated Date of Delivery: 05/01/25 is based on herfirst trimester 9w6d dating ultrasound. Patient was admitted for further evaluation and inpatient extended monitoring given concern for evolving preeclampsia with severe features. See H&P for details regarding this admission. Since admission, she has had mostly mild to moderate range hypertension. No severe blood pressures reported. She denies headache, vision changes or upper abdominal pain. Notable has been an increase in liver transaminases with no other known etiology, still below threshold to be considered a severe feature (ALT 83 and AST 54 U/L) but concerning for a process in evolution. She reports good movement. She denies uterine contractions, leakage of fluid or vaginal bleeding. I have reviewed and updated the following: allergies, current medications, prior to admission medications, family history, medical history, social history, surgical history, and problem list. OBJECTIVE BP 148/83 Pulse 97 Temp 36.7 ??C (Oral) Resp 16 Ht 165 cm Wt 123 kg LMP 07/31/2024 SpO2 97% BMI 45.18 kg/m?? General: Alert, comfortable. Abdomen: Gravid, soft and nontender. Uterus enlarged and nontender. NST: Reactive prior to transfer to [facility]. Not yet done this morning. DIAGNOSTICS I have reviewed the OB ultrasound(s), pelvic ultrasound(s), most recent labs, and non-stress test(s) ASSESSMENT / PLAN Intrauterine at 34w1d gestation Preeclampsia without severe features, concern for evolving severe features (blow threshold elevatedliver transaminases) Gestational diabetes Advanced maternal age Obesity Class 3 BMI 45 kg/m2 Jennifer Mariano is a 39 y.o. at 34w1d gestation admitted for further evaluation and inpatient extended monitoring given concern for evolving preeclampsia with severe features. Since admission, she has had mostly mild to moderate range hypertension. No severe blood pressures reported. She denies headache, vision changes or upper abdominal pain. Notable has been an increase in liver transaminases with no other known etiology, still below threshold to be considered a severe feature (ALT 83 and AST 54 U/L) but concerning for a process in evolution. Diagnosis of preeclampsia without severe features was reviewed in detail, including concern for progression to severe preeclampsia. Management plan was discussed with patient in agreement. No indication for delivery at this time but patient has been counselled regarding need to proceed with a medically indicated late delivery if she meets criteria for preeclampsia with severe features. PLAN DISPOSITION - Continue further evaluation and inpatient extended monitoring given concern for evolving preeclampsia with severe features. Patient has not yet met criteria for severe preeclampsia at this time but given concern for a process in evolution, recommend inpatient admission for now until severe preeclampsia is confirmed or excluded. VITALS - Vitals per unit protocol. Monitor blood pressure trend. Patient has not had any severe range hypertension. ANTEPARTUM SURVEILLANCE - Daily nonstress tests and as clinically indicated. DIET - Gestational diabetic diet. LABS - Repeat CBC, comprehensive metabolic panel this PM - sFlt-PlGF ratio pending - GBS pending - Glucose monitoring fasting and 2 hours postprandial (anticipate increase with administration of betamethasone) INSULIN - Was prescribed insulin on outpatient basis but was never started. Will monitor glucose values while inpatient to assess if needed. CONSULTS - Neonatology STEROIDS - BMZ 03/21 - 03/22 SEIZURE PROPHYLAXIS - IV magnesium sulfate if delivery indicated for preeclampsia with severe features. ACTIVITY - Encouraged continued ambulation. DVT PROPHYLAXIS - Encouraged continued ambulation.Compression pumps while in bed or chair. MODE OF DELIVERY - Mode of delivery will be based on standard obstetric indications. US for presentation once in labor to confirm cephalic. TIMING OF DELIVERY - Timing of delivery will be based on maternal and status. Proceed with delivery if patient meets criteria for preeclampsia with severe features CONTRACEPTION - Planned condom use until vasectomy on review of records. Revisit discussion this admission. Patient verbalized understanding our discussion. All her questions were answered and her concerns were addressed. A total of 35 minutes was spent in care of this patient. Kimberlee Moreira M.D. Deepa Dorman M.D. Maternal Medicine documented in this encounter Nursing Notes * Samia Tracy, R.N. - 03/24/2025 12:33 PM CDT Shift Goals: Clinical Goals for the Shift: maintain as long as maternal and status allows Identify possible barriers to meeting goals/advancing plan of care: None End of Shift Summary: AVS was printed and given to patient, RN went through AVS with the patient. Patient verbalized understanding of discharge instructions with teach back. Patient will discharge home today once her ride is here. Problem: ANTEPARTUM Goal: Maintain as long as maternal and/or condition is stable Outcome: Adequate for Discharge Problem: DISCHARGE PLANNING Goal: Patient discharge needs identified Outcome: Adequate for Discharge Problem: KNOWLEDGE DEFICIT Goal: Patient/family/caregiver demonstrates understanding of disease process, treatment plan, medications, and discharge instructions Outcome: Adequate for Discharge * Samia Tracy R.N. - 03/24/2025 12:23 PM CDT RN tested patient's A&D Blood Pressure Auto w/XL cuff. Blood pressures were checked on the patients left arm while she was supine in bed. Blood pressures were of following Patient Device Room Device 126/75 129/72 118/70 126/68 RN repeated the accuracy check and had the following BPs 122/70 122/69 115/79 119/77 Patient's home going blood pressure cuff has passed the accuracy check. Patient was educated on howto use blood pressure cuff and with teach back was able to demonstrate understanding. * Michaela Liang R.N. - 03/24/2025 5:13 AM CDT Shift Goals: Clinical Goals for the Shift: maintain as long as maternal and status allows Identify possible barriers to meeting goals/advancing plan of care: none End of Shift Summary: RN reviewed goals for the shift with patient. Handoff given to oncoming RN. * Michaela Liang R.N. - 03/23/2025 5:59 AM CDT Shift Goals: Clinical Goals for the Shift: maintain as long as maternal and status allows Identify possible barriers to meeting goals/advancing plan of care: none End of Shift Summary: RN reviewed goals for the shift with patient. Handoff given to oncoming RN. * Michaela Liang R.N. - 03/22/2025 6:02 AM CDT Shift Goals: Clinical Goals for the Shift: maintain as long as maternal and status allows Identify possible barriers to meeting goals/advancing plan of care: none End of Shift Summary: RN reviewed goals for the shift with patient. Handoff given to oncoming RN. * Guera Albarran R.N. - 03/21/2025 6:44 AM CDT Shift Goals: Clinical Goals for the Shift: Maintain as long as and maternal condition allows. Identify possible barriers to meeting goals/advancing plan of care: none End of Shift Summary: RN reviewed goals for the shift with patient. Handoff given to oncoming RN. documented in this encounter Miscellaneous Notes * Hospital Course - Gilma Jaramillo M.D. - 03/21/2025 12:40 AM CDT Jennifer Mariano is a 39 year old who was transferred from [place] at 34w1d gestation for mildrange blood pressures and elevated LFTs in the 70s. PC ratio was 0.84 at outside institution. On arrival, she reported a mild headache and repeat labs demonstrated a LFT of 76. Decision was made to proceed with betamethasone for lung maturity despite GDMA2, as postprandial glucose check was 103 with very recent initiation of GDM treatment. She received BMZ 03/21-03/22. During her hospitalization, BP remained normotensive to low MR but stable throughout admission. Asymptomatic and her LFTs stabilized before down trending. She was started on Lantus 12 units nightly for elevated blood glucose. Discussed with patient that although her condition could worsen at this time she only meets criteria for preeclampsia without severe features. Outpatient follow-up would be reasonable given her overall clinical stability. We will plan for close outpatient follow-up this with Dr. Lillie sargent further follow-up twice weekly until delivery. documented in this encounter Plan of Treatment Upcoming Encounters Date Type Department Care Team (Late st Contact Info) Description 04/29/2025 12:00 PM CDT Office Visit Department of Family Medicine, [facility], in [place], [place] [address] [place] [address] Soni Krueger M.D. [address] [place] [address] Scheduled Referrals Name Type Priority Associated Diagnoses Order Schedule Obstetrics and Gynecology office visit (clinic) Outpatient Referral Routine Expected: 03/26/2025 (Approximate), Expires: 06/24/2026 documented as of this encounter Procedures Procedure Name Priority Date/Time Associated Diagnosis Comments GLUCOSE POCT, B Routine 03/24/2025 10:37 AM CDT US OB FOLLOW-UP AND OR GROWTH MUNIZ RAD - Routine (most inpatients and all outpatients) 03/24/2025 8:54 AM CDT GLUCOSE POCT, B Routine 03/24/2025 4:58 AM CDT CBC WITHOUT DIFFERENTIAL, B Routine 03/24/2025 4:58 AM CDT COMPREHENSIVE METABOLIC PANEL, S/P Routine 03/24/2025 4:58 AM CDT GLUCOSE POCT, B Routine 03/23/2025 9:04 PM CDT GLUCOSE POCT, B Routine 03/23/2025 3:27 PM CDT GLUCOSE POCT, B Routine 03/23/2025 10:33 AM CDT GLUCOSE POCT, B Routine 03/23/2025 5:54 AM CDT CBC WITHOUT DIFFERENTIAL, B STAT 03/23/2025 5:54 AM CDT TYPE AND SCREEN Routine 03/23/2025 5:54 AM CDT COMPREHENSIVE METABOLIC PANEL, S/P STAT 03/23/2025 5:54 AM CDT GLUCOSE POCT, B Routine 03/22/2025 8:28 PM CDT GLUCOSE POCT, B Routine 03/22/2025 3:24 PM CDT GLUCOSE POCT, B Routine 03/22/2025 11:17 AM CDT GLUCOSE POCT, B Routine 03/22/2025 5:07 AM CDT CBC WITHOUT DIFFERENTIAL, B Timed 03/22/2025 4:59 AM CDT COMPREHENSIVE METABOLIC PANEL, S/P Timed 03/22/2025 4:59 AM CDT GLUCOSE POCT, B Routine 03/21/2025 10:20 PM CDT CBC WITHOUT DIFFERENTIAL, B Routine 03/21/2025 6:49 PM CDT COMPREHENSIVE METABOLIC PANEL, S/P Timed 03/21/2025 4:58 PM CDT GLUCOSE POCT, B Routine 03/21/2025 4:57 PM CDT GLUCOSE POCT, B Routine 03/21/2025 11:45 AM CDT PREECLAMPSIA SFLT-1/PLGF RATIO, S Timed 03/21/2025 7:23 AM CDT CBC WITHOUT DIFFERENTIAL, B Timed 03/21/2025 6:40 AM CDT COMPREHENSIVE METABOLIC PANEL, S/P Timed 03/21/2025 6:40 AM CDT GLUCOSE POCT, B Routine 03/21/2025 3:22 AM CDT GRP B STREP (S. AGALACTIAE) CULTURE Routine 03/21/2025 1:30 AM CDT GLUCOSE POCT, B Routine 03/21/2025 12:30 AM CDT SYPHILIS IGG W/ REFLEX, EIA, S Timed 03/20/2025 11:44 PM CDT CBC WITHOUT DIFFERENTIAL, B Timed 03/20/2025 11:44 PM CDT TYPE AND SCREEN Timed 03/20/2025 11:44 PM CDT COMPREHENSIVE METABOLIC PANEL, S/P Timed 03/20/2025 11:44 PM CDT documented in this encounter Results * nonstress test - muniz (03/26/2025 11:00 AM CDT) Narrative Jairo Olivares M.D. - 03/26/2025 11:00 AM CDT Jairo Olivares M.D. 03/26/2025 12:19 PM SUBJECTIVE Jennifer Mariano, a at 34w6d with an Estimated Date of Delivery: 05/01/25, was seen for a nonstress test. NST for AMA, GDM, and preeclampsia. Labs drawn today. Denies headaches, visual changes, RUQ or epigastric pain, LOF, or vaginal bleeding. No other concerns. OBJECTIVE Nonstress test findings: Reason for NST: Advanced maternal age; Pre-eclampsia; Gestational diabetes Baseline Rate (BR): 155 bpm Variability: Moderate Acceleration Pattern: 15x15 Deceleration Pattern: None Acoustic Stimulator: No Contractions: Not present Nonstress Test Interpretation: Reactive Duration of NST (minutes): 26 Blood Pressure: 128/86 Heart Rate: 87 Interventions: RN continuous at bedside; RN reviewed strip; PO fluid-water ASSESSMENT / PLAN Patient is proceeding to provider visit. Shani Pimentel R.N. Gilma Jaramillo M.D. OB GYNE ORDERABLES Final Resu lt * (ABNORMAL) Comprehensive Metabolic Panel (03/26/2025 10:42 AM CDT) Potassium, S 4.2 3.6 - 5.2 mmol/L 03/26/2025 11:26 AM CDT DTL Sodium, S 135 135 - 145 mmol/L 03/26/2025 11:26 AM CDT DTL Chloride, S 103 98 - 107 mmol/L 03/26/2025 11:26 AM CDT DTL Bicarbonate, S 22 22 - 29 mmol/L 03/26/2025 11:26 AM CDT DTL Anion Gap 10 7 - 15 03/26/2025 11:26 AM CDT DTL BUN (Blood Urea Nitrogen), S 12 6 - 21 mg/dL 03/26/2025 11:26 AM CDT DTL Creatinine 0.66 0.59 - 1.04 mg/dL 03/26/2025 11:26 AM CDT DTL Estimated GFR (eGFR) >90 >=60 mL/min/BS A 03/26/2025 11:26 AM CDT DTL Comment: Estimated GFR calculated using the 2020 CKD_EPI creatinine equation. Calcium, Total, S 8.9 8.6 - 10.0 mg/dL 03/26/2025 11:26 AM CDT DTL Glucose, S 92 70 - 140 mg/dL 03/26/2025 11:26 AM CDT DTL Protein, Total, S 5.7(L) 6.3 - 7.9 g/dL 03/26/2025 11:26 AM CDT DTL Albumin, S 3.4(L) 3.5 - 5.0 g/dL 03/26/2025 11:26 AM CDT DTL Aspartate Aminotransferase (AST), S 28 8 - 43 U/L 03/26/2025 11:26 AM CDT DTL Alkaline Phosphatase, S 133(H) 35 - 104 U/L 03/26/2025 11:26 AM CDT DTL Alanine Aminotransferase (ALT), S 50(H) 7 - 45 U/L 03/26/2025 11:26 AM CDT DTL Bilirubin, Total, S 0.3 0.0 - 1.2 mg/dL 03/26/2025 11:26 AM CDT DTL Blood (Blood, Venous) 03/26/2025 10:42 AM CDT 03/26/2025 11:08 AM CDT us Gilma Jaramillo M.D. LAB BLOOD ADD-ON Final Result Performing Organization Address City/[facility]/ZIP Co de Phone Number [facility] [address] [place] [address], [facility] DTL [facility] [address] [place] [address] * (ABNORMAL) CBC without Differential (03/26/2025 10:42 AM CDT) [facility] Hemoglobin 13.3 11.6 - 15.0 g/dL 03/26/2025 11:15 AM CDT DTL Hematocrit 38.5 35.5 - 44.9 % 03/26/2025 11:15 AM CDT DTL Erythrocytes 4.46 3.92 - 5.13 x10(12)/L 03/26/2025 11:15 AM CDT DTL MCV 86.3 78.2 - 97.9 fL 03/26/2025 11:15 AM CDT DTL RBC Distrib Width 12.9 12.2 - 16.1 % 03/26/2025 11:15 AM CDT DTL Platelet Count 359 157 - 371 x10(9)/L 03/26/2025 11:15 AM CDT DTL Leukocytes 11.9(H) 3.4 - 9.6 x10(9)/L 03/26/2025 11:15 AM CDT DTL Blood (Blood, Venous) 03/26/2025 10:42 AM CDT 03/26/2025 10:53 AM CDT us Gilma Jaramillo M.D. LAB BLOOD ADD-ON Final Result Performing Organization Address City/[facility]/ZIP Co de Phone Number [facility] [address] [place] [address], [facility] DTL [facility] [address] [place] [address] * Glucose, POCT (03/24/2025 10:37 AM CDT) Glucose, POCT, B 77 70 - 140 mg/dL 03/24/2025 10:41 AM CDT PCDE Site Capillary 03/24/2025 10:41 AM CDT PCDE Last Intake 2-3 hours 03/24/2025 10:41 AM CDT PCDE Blood 03/24/2025 10:3 7 AM CDT 03/24/2025 10:41 AM CDT us Unknown Provider LAB POCT ORDERABLES-MANUAL Mi l Result POC [facility] [address] [place] [address], [facility] PCDE [facility] POC [address] [place] [address] * US OB Follow Up and or Growth Muniz (03/24/2025 8:54 AM CDT) Anatomical Region Laterality Modality Body, Ultrasound OB RST LOS, Ultrasound ARZ LOS N/A Ultrasound 03/24/2025 8:26 AM CDT Narrative 03/24/2025 8:55 AM CDT Exam Type ========= OB Follow Up and/or Growth Indication ======== PreE without severe features History ====== OB History 5. Para 4 Method ====== Transabdominal ultrasound examination ========= Muniz Dating ====== Date Details Gest. age EVELINA Stated EVELINA 34 w + 4 d 05/01/2025 U/S 03/24/2025 based upon AC, BPD, Femur 35 w + 2 d 04/26/2025 Assigned dating based on stated EVELINA, selected on 12/11/2024 34 w + 4 d 05/01/2025 Biometry BPD 83.7 mm 33w 5d 25% HC 305.9 mm -0.7SD APAD 111.6 mm -/- TAD 103.8 mm 38w 3d AC 338.5 mm 37w 5d >99% Femur 66.9 mm 34w 3d 37% HC / AC 0.90 Weight Calculation: EFW 2,840 g 85% Hadlock EFW (lb,oz) 6 lb 4 oz EFW by Hadlock ([id number]) Extremities / Bony Struc Biometry: FL / BPD 0.80 FL / HC 0.22 FL / AC 0.20 General Evaluation Cardiac activity present. FHR 154 bpm. Presentation: Cephalic Amniotic fluid: Amount of AF: normal. MVP 4.2 cm Anatomy The following structures appear normal: Abdomen Stomach. Bladder. Impression ========= Muniz intrauterine . Cephalic presentation. composite biometry consistent with assigned gestational age (EFW 2840 g (6 lb 4 oz) 85%, AC >99%). Amniotic fluid volume normal (MVP 4.2 cm). Procedure Note Alisa Braswell M.D. - 03/24/2025 Exam Type ========= OB Follow Up and/or Growth Indication ======== PreE without severe features History ====== OB History 5. Para 4 Method ====== Transabdominal ultrasound examination ========= Muniz Dating ====== Date DetailsGest. age EVELINA Stated EVELINA 34 w + 4 d 05/01/2025 U/S 03/24/2025 based upon AC, BPD, Femur 35w + 2 d 04/26/2025 Assigned dating based on stated EVELINA, selected on w + 4 d 05/01/2025 Biometry BPD 83.7 mm 33w 5d 25% HC 305.9 mm -0.7SD APAD 111.6 mm -/- TAD 103.8 mm 38w 3d AC 338.5 mm 37w 5d >99% Femur 66.9 mm 34w 3d 37% HC / AC 0.90 Weight Calculation: EFW 2,840 g 85% Hadlock EFW (lb,oz) 6 lb 4 oz EFW by Hadlock ([id number]) Extremities / Bony Struc Biometry: FL / BPD 0.80 FL / HC 0.22 FL / AC 0.20 General Evaluation Cardiac activity present. FHR 154 bpm. Presentation: Cephalic Amniotic fluid: Amount of AF: normal. MVP 4.2 cm Anatomy The following structures appear normal: Abdomen Stomach. Bladder. Impression ========= Muniz intrauterine . Cephalic presentation. composite biometry consistent with assigned gestational age (AUN7087 g (6 lb 4 oz) 85%, AC >99%). Amniotic fluid volume normal (MVP 4.2 cm). us Kimberlee Moreira M.D. IMG OB US PROCEDURES Final Result * Glucose, POCT (03/24/2025 4:58 AM CDT) Glucose, POCT, B 89 70 - 140 mg/dL 03/24/2025 5:00 AM CDT PCDE Site Capillary 03/24/2025 5:00 AM CDT PCDE Blood 03/24/2025 4:58 AM CDT 03/24/2025 5:00 AM CDT us Unknown Provider LAB POCT ORDERABLES-MANUAL Mi l Result POC [facility] [address] PCDE [facility] POC [address] [place] [address] * (ABNORMAL) Comprehensive Metabolic Panel (03/24/2025 4:58 AM CDT) Potassium, S 4.3 3.6 - 5.2 mmol/L 03/24/2025 5:39 AM CDT DTL Sodium, S 137 135 - 145 mmol/L 03/24/2025 5:39 AM CDT DTL Chloride, S 103 98 - 107 mmol/L 03/24/2025 5:39 AM CDT DTL Bicarbonate, S 24 22 - 29 mmol/L 03/24/2025 5:39 AM CDT DTL Anion Gap 10 7 - 15 03/24/2025 5:39 AM CDT DTL BUN (Blood Urea Nitrogen), S 10 6 - 21 mg/dL 03/24/2025 5:39 AM CDT DTL Creatinine 0.60 0.59 - 1.04 mg/dL 03/24/2025 5:39 AM CDT DTL Estimated GFR (eGFR) >90 >=60 mL/min/BS A 03/24/2025 5:39 AM CDT DTL Comment: Estimated GFR calculated using the 2020 CKD_EPI creatinine equation. Calcium, Total, S 9.0 8.6 - 10.0 mg/dL 03/24/2025 5:39 AM CDT DTL Glucose, S 89 70 - 140 mg/dL 03/24/2025 5:39 AM CDT DTL Protein, Total, S 5.2(L) 6.3 - 7.9 g/dL 03/24/2025 5:39 AM CDT DTL Albumin, S 3.1(L) 3.5 - 5.0 g/dL 03/24/2025 5:39 AM CDT DTL Aspartate Aminotransferase (AST), S 33 8 - 43 U/L 03/24/2025 5:39 AM CDT DTL Alkaline Phosphatase, S 109(H) 35 - 104 U/L 03/24/2025 5:39 AM CDT DTL Alanine Aminotransferase (ALT), S 66(H) 7 - 45 U/L 03/24/2025 5:39 AM CDT DTL Bilirubin, Total, S <0.2 0.0 - 1.2 mg/dL 03/24/2025 5:39 AM CDT DTL Blood (Blood, Venous) 03/24/2025 4:58 AM CDT 03/24/2025 5:23 AM CDT us Kimberlee Moreira M.D. LAB BLOOD ADD-ON Final Resu lt [facility] [address] [place] [address], [place] DTL [facility] [address] [place] [address] * (ABNORMAL) CBC without Differential (03/24/2025 4:58 AM CDT) Hemoglobin 12.1 11.6 - 15.0 g/dL 03/24/2025 5:17 AM CDT DTL Hematocrit 35.4(L) 35.5 - 44.9 % 03/24/2025 5:17 AM CDT DTL Erythrocytes 4.12 3.92 - 5.13 x10(12)/L 03/24/2025 5:17 AM CDT DTL MCV 85.9 78.2 - 97.9 fL 03/24/2025 5:17 AM CDT DTL RBC Distrib Width 12.9 12.2 - 16.1 % 03/24/2025 5:17 AM CDT DTL Platelet Count 304 157 - 371 x10(9)/L 03/24/2025 5:17 AM CDT DTL Leukocytes 11.3(H) 3.4 - 9.6 x10(9)/L 03/24/2025 5:17 AM CDT DTL Blood (Blood, Venous) 03/24/2025 4:58 AM CDT 03/24/2025 5:08 AM CDT Kimberlee Moreira M.D. LAB BLOOD ADD-ON Final Resu lt [facility] [address] [place] [address], [facility] [address] [place] [address] * Glucose, POCT (03/23/2025 9:04 PM CDT) Glucose, POCT, B 106 70 - 140 mg/dL 03/23/2025 9:11 PM CDT PCDE Site Capillary 03/23/2025 9:11 PM CDT PCDE Last Intake 2-3 hours 03/23/2025 9:11 PM CDT PCDE Blood 03/23/2025 9:04 PM CDT 03/23/2025 9:12 PM CDT us Unknown Provider LAB POCT ORDERABLES-MANUAL Mi l Result Performing Organization Address City/[facility]/ZIP Co de Phone Number POC [facility] [address] [place] [address], [facility] PCDE [facility] POC [address] [place] [address] * Glucose, POCT (03/23/2025 3:27 PM CDT) Glucose, POCT, B 94 70 - 140 mg/dL 03/23/2025 3:31 PM CDT PCDE Site Capillary 03/23/2025 3:31 PM CDT PCDE Blood 03/23/2025 3:27 PM CDT 03/23/2025 3:32 PM CDT us Unknown Provider LAB POCT ORDERABLES-MANUAL Mi l Result Performing Organization Address City/[facility]/ZIP Co de Phone Number POC [facility] [address] [place] [address], [facility] PCDE [facility] POC [address] [place] [address] * Glucose, POCT (03/23/2025 10:33 AM CDT) Glucose, POCT, B 95 70 - 140 mg/dL 03/23/2025 10:35 AM CDT PCDE Site Capillary 03/23/2025 10:35 AM CDT PCDE Blood 03/23/2025 10:3 3 AM CDT 03/23/2025 10:36 AM CDT us Unknown Provider LAB POCT ORDERABLES-MANUAL Mi l Result Performing Organization Address City/[facility]/ZIP Co de Phone Number POC [facility] [address] [place] [address], [facility] PCDE [facility] POC [address] [place] [address] * Glucose, POCT (03/23/2025 5:54 AM CDT) Glucose, POCT, B 108 70 - 140 mg/dL 03/23/2025 5:56 AM CDT PCDE Site Capillary 03/23/2025 5:56 AM CDT PCDE Blood 03/23/2025 5:54 AM CDT 03/23/2025 5:57 AM CDT us Unknown Provider LAB POCT ORDERABLES-MANUAL Mi l Result POC [facility] [address] [place] [address], [facility] PCDE [facility] POC [address] [place] [address] * (ABNORMAL) Comprehensive Metabolic Panel (03/23/2025 5:54 AM CDT) Potassium, S 4.1 3.6 - 5.2 mmol/L 03/23/2025 6:47 AM CDT DTL Sodium, S 138 135 - 145 mmol/L 03/23/2025 6:47 AM CDT DTL Chloride, S 105 98 - 107 mmol/L 03/23/2025 6:47 AM CDT DTL Bicarbonate, S 22 22 - 29 mmol/L 03/23/2025 6:47 AM CDT DTL Anion Gap 11 7 - 15 03/23/2025 6:47 AM CDT DTL BUN (Blood Urea Nitrogen), S 9 6 - 21 mg/dL 03/23/2025 6:47 AM CDT DTL Creatinine 0.65 0.59 - 1.04 mg/dL 03/23/2025 6:47 AM CDT DTL Estimated GFR (eGFR) >90 >=60 mL/min/BS A 03/23/2025 6:47 AM CDT DTL Comment: Estimated GFR calculated using the 2020 CKD_EPI creatinine equation. Calcium, Total, S 9.3 8.6 - 10.0 mg/dL 03/23/2025 6:47 AM CDT DTL Glucose, S 96 70 - 140 mg/dL 03/23/2025 6:47 AM CDT DTL Protein, Total, S 5.3(L) 6.3 - 7.9 g/dL 03/23/2025 6:47 AM CDT DTL Albumin, S 3.1(L) 3.5 - 5.0 g/dL 03/23/2025 6:47 AM CDT DTL Aspartate Aminotransferase (AST), S 35 8 - 43 U/L 03/23/2025 6:47 AM CDT DTL Alkaline Phosphatase, S 114(H) 35 - 104 U/L 03/23/2025 6:47 AM CDT DTL Alanine Aminotransferase (ALT), S 68(H) 7 - 45 U/L 03/23/2025 6:47 AM CDT DTL Bilirubin, Total, S <0.2 0.0 - 1.2 mg/dL 03/23/2025 6:47 AM CDT DTL Blood (Blood, Venous) 03/23/2025 5:54 AM CDT 03/23/2025 6:22 AM CDT us Acacia Garrett M.D. LAB BLOOD ADD-ON Final R esult [facility] [address] [place] [address], [facility] [address] [place] [address] * (ABNORMAL) CBC without Differential (03/23/2025 5:54 AM CDT) [facility] Hemoglobin 12.7 11.6 - 15.0 g/dL 03/23/2025 6:10 AM CDT METH Hematocrit 36.3 35.5 - 44.9 % 03/23/2025 6:10 AM CDT METH Erythrocytes 4.18 3.92 - 5.13 x10(12)/L 03/23/2025 6:10 AM CDT METH MCV 86.8 78.2 - 97.9 fL 03/23/2025 6:10 AM CDT METH RBC Distrib Width 12.7 12.2 - 16.1 % 03/23/2025 6:10 AM CDT METH Platelet Count 314 157 - 371 x10(9)/L 03/23/2025 6:10 AM CDT METH Leukocytes 12.7(H) 3.4 - 9.6 x10(9)/L 03/23/2025 6:10 AM CDT METH Blood (Blood, Venous) 03/23/2025 5:54 AM CDT 03/23/2025 6:07 AM CDT us Acacia Garrett M.D. LAB BLOOD ADD-ON Final R esult Performing Organization Address City/[facility]/ZIP Co de Phone Number [facility] [address] [place] [address], [place] METH [facility] [address] [place] [address] * Type and Screen (with Reflex Antibody ID) (03/23/2025 5:54 AM CDT) Pathologist [facility] ABORh O Pos Not applicable 03/23/2025 6:54 AM CDT ETRM Antibody Screen Negative Negative 03/23/2025 7:07 AM CDT ETRM Type & Screen Expiration 03/26/2025 23:59 03/23/2025 6:54 AM CDT ETRM Testing Location [facility] DEFAULT 03/23/2025 6:14 AM CDT ETRM Blood (Blood, Venous) 03/23/2025 5:54 AM CDT 03/23/2025 6:14 AM CDT us Kimberlee Moreira M.D. LAB BLOOD BANK TEST ORDERAB LES Final Result Performing Organization Address City/[facility] Co de Phone Number [facility] [address] [place] [address], [facility] ETRM [facility] [address] [place] [address] * Glucose, POCT (03/22/2025 8:28 PM CDT) [facility] Glucose, POCT, B 115 70 - 140 mg/dL 03/22/2025 8:36 PM CDT PCDE Site Capillary 03/22/2025 8:36 PM CDT PCDE Last Intake 2-3 hours 03/22/2025 8:36 PM CDT PCDE Blood 03/22/2025 8:28 PM CDT 03/22/2025 8:37 PM CDT us Unknown Provider LAB POCT ORDERABLES-MANUAL Mi l Result Performing Organization Address City/[facility]/ZIP Co de Phone Number POC [facility] [address] [place] [address], [facility] PCDE [facility] POC [address] [place] [address] * Glucose, POCT (03/22/2025 3:24 PM CDT) Glucose, POCT, B 127 70 - 140 mg/dL 03/22/2025 3:30 PM CDT PCDE Site Capillary 03/22/2025 3:30 PM CDT PCDE Blood 03/22/2025 3:24 PM CDT 03/22/2025 3:30 PM CDT us Unknown Provider LAB POCT ORDERABLES-MANUAL Mi l Result Performing Organization Address [facility] Co de Phone Number POC [facility] [address] [place] [address], [facility] PCDE [facility] POC [address] [place] [address] * Glucose, POCT (03/22/2025 11:17 AM CDT) Glucose, POCT, B 135 70 - 140 mg/dL 03/22/2025 11:21 AM CDT PCDE Site Capillary 03/22/2025 11:21 AM CDT PCDE Blood 03/22/2025 11:1 7 AM CDT 03/22/2025 11:21 AM CDT us Unknown Provider LAB POCT ORDERABLES-MANUAL Mi l Result Performing Organization Address City/[facility]/ZIP Co de Phone Number POC [facility] [address] [place] [address], [facility] PCDE [facility] POC [address] [place] [address] * Glucose, POCT (03/22/2025 5:07 AM CDT) Glucose, POCT, B 124 70 - 140 mg/dL 03/22/2025 5:09 AM CDT PCDE Site Capillary 03/22/2025 5:09 AM CDT PCDE Blood 03/22/2025 5:07 AM CDT 03/22/2025 5:10 AM CDT us Unknown Provider LAB POCT ORDERABLES-MANUAL Mi l Result POC [facility] [address] [place] [address], [place] PCDE [facility] [place] POC [address] [place] [address] * (ABNORMAL) Comprehensive Metabolic Panel (03/22/2025 4:59 AM CDT) [facility] Potassium, S 4.3 3.6 - 5.2 mmol/L 03/22/2025 5:37 AM CDT DTL Sodium, S 135 135 - 145 mmol/L 03/22/2025 5:37 AM CDT DTL Chloride, S 106 98 - 107 mmol/L 03/22/2025 5:37 AM CDT DTL Bicarbonate, S 21(L) 22 - 29 mmol/L 03/22/2025 5:37 AM CDT DTL Anion Gap 8 7 - 15 03/22/2025 5:37 AM CDT DTL BUN (Blood Urea Nitrogen), S 11 6 - 21 mg/dL 03/22/2025 5:37 AM CDT DTL Creatinine 0.61 0.59 - 1.04 mg/dL 03/22/2025 5:37 AM CDT DTL Estimated GFR (eGFR) >90 >=60 mL/min/BS A 03/22/2025 5:37 AM CDT DTL Comment: Estimated GFR calculated using the 2020 CKD_EPI creatinine equation. Calcium, Total, S 9.0 8.6 - 10.0 mg/dL 03/22/2025 5:37 AM CDT DTL Glucose, S 122 70 - 140 mg/dL 03/22/2025 5:37 AM CDT DTL Protein, Total, S 5.3(L) 6.3 - 7.9 g/dL 03/22/2025 5:37 AM CDT DTL Albumin, S 3.2(L) 3.5 - 5.0 g/dL 03/22/2025 5:37 AM CDT DTL Aspartate Aminotransferase (AST), S 40 8 - 43 U/L 03/22/2025 5:37 AM CDT DTL Alkaline Phosphatase, S 122(H) 35 - 104 U/L 03/22/2025 5:37 AM CDT DTL Alanine Aminotransferase (ALT), S 72(H) 7 - 45 U/L 03/22/2025 5:37 AM CDT DTL Bilirubin, Total, S 0.2 0.0 - 1.2 mg/dL 03/22/2025 5:37 AM CDT DTL Blood (Blood, Venous) 03/22/2025 4:59 AM CDT 03/22/2025 5:21 AM CDT us Acacia Garrett M.D. LAB BLOOD ADD-ON Final R esult [facility] [address] [place] [address], [facility] [address] [place] [address] * (ABNORMAL) CBC without Differential (03/22/2025 4:59 AM CDT) Hemoglobin 12.2 11.6 - 15.0 g/dL 03/22/2025 5:17 AM CDT DTL Hematocrit 36.2 35.5 - 44.9 % 03/22/2025 5:17 AM CDT DTL Erythrocytes 4.18 3.92 - 5.13 x10(12)/L 03/22/2025 5:17 AM CDT DTL MCV 86.6 78.2 - 97.9 fL 03/22/2025 5:17 AM CDT DTL RBC Distrib Width 12.7 12.2 - 16.1 % 03/22/2025 5:17 AM CDT DTL Platelet Count 331 157 - 371 x10(9)/L 03/22/2025 5:17 AM CDT DTL Leukocytes 12.1(H) 3.4 - 9.6 x10(9)/L 03/22/2025 5:17 AM CDT DTL Blood (Blood, Venous) 03/22/2025 4:59 AM CDT 03/22/2025 5:07 AM CDT Acacia Garrett M.D. LAB BLOOD ADD-ON Final R esult Performing Organization Address City/[facility]/ZIP Co de Phone Number [facility] [address] DTL [facility] [address] [place] [address] * Glucose, POCT (03/21/2025 10:20 PM CDT) Pathologist [facility] Glucose, POCT, B 118 70 - 140 mg/dL 03/21/2025 10:26 PM CDT PCDE Site Capillary 03/21/2025 10:26 PM CDT PCDE Last Intake 2-3 hours 03/21/2025 10:26 PM CDT PCDE Blood 03/21/2025 10:2 0 PM CDT 03/21/2025 10:26 PM CDT Unknown Provider LAB POCT ORDERABLES-MANUAL Mi l Result Performing Organization Address City/[facility]/ZIP Co de Phone Number [facility] [address] [place], [place] [id number] [place] [address] PCDE [facility] [address] [place] [address] * (ABNORMAL) CBC without Differential (03/21/2025 6:49 PM CDT) Hemoglobin 12.3 11.6 - 15.0 g/dL 03/21/2025 7:08 PM CDT DTL Hematocrit 36.1 35.5 - 44.9 % 03/21/2025 7:08 PM CDT DTL Erythrocytes 4.19 3.92 - 5.13 x10(12)/L 03/21/2025 7:08 PM CDT DTL MCV 86.2 78.2 - 97.9 fL 03/21/2025 7:08 PM CDT DTL RBC Distrib Width 12.8 12.2 - 16.1 % 03/21/2025 7:08 PM CDT DTL Platelet Count 377(H) 157 - 371 x10(9)/L 03/21/2025 7:08 PM CDT DTL Leukocytes 15.0(H) 3.4 - 9.6 x10(9)/L 03/21/2025 7:08 PM CDT DTL Blood (Blood, Venous) 03/21/2025 6:49 PM CDT 03/21/2025 7:00 PM CDT us Kimberlee Moreira M.D. LAB BLOOD ADD-ON Final Resu lt [facility] [address] [place] [address], [facility] DTL [facility] [address] [place] [address] * (ABNORMAL) Comprehensive Metabolic Panel (03/21/2025 4:58 PM CDT) Potassium, S 4.0 3.6 - 5.2 mmol/L 03/21/2025 5:42 PM CDT DTL Sodium, S 136 135 - 145 mmol/L 03/21/2025 5:42 PM CDT DTL Chloride, S 105 98 - 107 mmol/L 03/21/2025 5:42 PM CDT DTL Bicarbonate, S 20(L) 22 - 29 mmol/L 03/21/2025 5:42 PM CDT DTL Anion Gap 11 7 - 15 03/21/2025 5:42 PM CDT DTL BUN (Blood Urea Nitrogen), S 8 6 - 21 mg/dL 03/21/2025 5:42 PM CDT DTL Creatinine 0.57(L) 0.59 - 1.04 mg/dL 03/21/2025 5:42 PM CDT DTL Estimated GFR (eGFR) >90 >=60 mL/min/BS A 03/21/2025 5:42 PM CDT DTL Comment: Estimated GFR calculated using the 2020 CKD_EPI creatinine equation. Calcium, Total, S 9.1 8.6 - 10.0 mg/dL 03/21/2025 5:42 PM CDT DTL Glucose, S 131 70 - 140 mg/dL 03/21/2025 5:42 PM CDT DTL Protein, Total, S 5.6(L) 6.3 - 7.9 g/dL 03/21/2025 5:42 PM CDT DTL Albumin, S 3.3(L) 3.5 - 5.0 g/dL 03/21/2025 5:42 PM CDT DTL Aspartate Aminotransferase (AST), S 42 8 - 43 U/L 03/21/2025 5:42 PM CDT DTL Alkaline Phosphatase, S 126(H) 35 - 104 U/L 03/21/2025 5:42 PM CDT DTL Alanine Aminotransferase (ALT), S 79(H) 7 - 45 U/L 03/21/2025 5:42 PM CDT DTL Bilirubin, Total, S <0.2 0.0 - 1.2 mg/dL 03/21/2025 5:42 PM CDT DTL Blood (Blood, Venous) 03/21/2025 4:58 PM CDT 03/21/2025 5:19 PM CDT us Kimberlee Moreira M.D. LAB BLOOD ADD-ON Final Resu lt Performing Organization Address City/[facility]/ZIP Co de Phone Number [facility] [address] [place] [address], [facility] DTL [facility] [address] [place] [address] * Glucose, POCT (03/21/2025 4:57 PM CDT) [facility] Glucose, POCT, B 135 70 - 140 mg/dL 03/21/2025 4:59 PM CDT PCDE Last Intake 2-3 hours 03/21/2025 4:59 PM CDT PCDE Blood 03/21/2025 4:57 PM CDT 03/21/2025 4:59 PM CDT us Unknown Provider LAB POCT ORDERABLES-MANUAL Mi l Result Performing Organization Address City/[facility]/ZIP Co de Phone Number [facility] [address] [place] [address], [facility] PCDE [facility] [address] [place] [address] * Glucose, POCT (03/21/2025 11:45 AM CDT) Glucose, POCT, B 127 70 - 140 mg/dL 03/21/2025 11:47 AM CDT PCDE Last Intake 2-3 hours 03/21/2025 11:47 AM CDT PCDE Blood 03/21/2025 11:4 5 AM CDT 03/21/2025 11:48 AM CDT Unknown Provider LAB POCT ORDERABLES-MANUAL Mi l Result Performing Organization Address [facility] Co de Phone Number [facility] [address] [place] [address], [facility] PCDE [facility] [address] [place] [address] * (ABNORMAL) Preeclampsia sFlt-1/PlGF Ratio (03/21/2025 7:23 AM CDT) Pathologist [facility] sFlt-1/PlGF Ratio 96(H) <40 025 11:54 AM CDT [facility] Comment: sFlt-1/PlGF ratio >/= 40 (high risk): If the result of the ratio is greater than or equal to 40, the woman is at high risk for progression to preeclampsia with severe features within 2 weeks of presentation. ----ADDITIONAL INFORMATION---- The intended use of the [employer] sFlt-1/PlGF ratio is to aid in risk assessment of patients with clinical signs and symptoms consistent with development of preeclampsia with severe features. The test is indicated for use in women with muniz pregnancies (gestational age 23 to 34+6/7 weeks) hospitalized for hypertensive disorders of (preeclampsia, chronic hypertension with or without superimposed preeclampsia or gestational hypertension), within 2 weeks of presentation. Blood (Blood, Venous) 03/21/2025 7:23 AM CDT 03/21/2025 10:04 AM CDT Kimberlee Moreira M.D. LAB BLOOD ADD-ON Final Resu lt Performing Organization Address City/[facility]/ZIP Co de Phone Number [facility] [address] [place] [address] [facility] [address] [place] [address] * (ABNORMAL) Comprehensive Metabolic Panel (03/21/2025 6:40 AM CDT) [facility] Potassium, S 4.5 3.6 - 5.2 mmol/L 03/21/2025 7:32 AM CDT DTL Sodium, S 134(L) 135 - 145 mmol/L 03/21/2025 7:32 AM CDT DTL Chloride, S 103 98 - 107 mmol/L 03/21/2025 7:32 AM CDT DTL Bicarbonate, S 22 22 - 29 mmol/L 03/21/2025 7:32 AM CDT DTL Anion Gap 9 7 - 15 03/21/2025 7:32 AM CDT DTL BUN (Blood Urea Nitrogen), S 7 6 - 21 mg/dL 03/21/2025 7:32 AM CDT DTL Creatinine 0.63 0.59 - 1.04 mg/dL 03/21/2025 7:32 AM CDT DTL Estimated GFR (eGFR) >90 >=60 mL/min/BS A 03/21/2025 7:32 AM CDT DTL Comment: Estimated GFR calculated using the 2020 CKD_EPI creatinine equation. Calcium, Total, S 9.2 8.6 - 10.0 mg/dL 03/21/2025 7:32 AM CDT DTL Glucose, S 126 70 - 140 mg/dL 03/21/2025 7:32 AM CDT DTL Protein, Total, S 5.9(L) 6.3 - 7.9 g/dL 03/21/2025 7:32 AM CDT DTL Albumin, S 3.5 3.5 - 5.0 g/dL 03/21/2025 7:32 AM CDT DTL Aspartate Aminotransferase (AST), S 54(H) 8 - 43 U/L 03/21/2025 7:32 AM CDT DTL Alkaline Phosphatase, S 139(H) 35 - 104 U/L 03/21/2025 7:32 AM CDT DTL Alanine Aminotransferase (ALT), S 83(H) 7 - 45 U/L 03/21/2025 7:32 AM CDT DTL Bilirubin, Total, S 0.2 0.0 - 1.2 mg/dL 03/21/2025 7:32 AM CDT DTL Blood (Blood, Venous) 03/21/2025 6:40 AM CDT 03/21/2025 7:13 AM CDT us Mana Monroy M.D. LAB BLOOD ADD-ON Final Result [facility] [address] DTL [facility] [place] [address] [place] [address] * (ABNORMAL) CBC without Differential (03/21/2025 6:40 AM CDT) Pathologist [facility] Hemoglobin 13.0 11.6 - 15.0 g/dL 03/21/2025 7:07 AM CDT DTL Hematocrit 38.4 35.5 - 44.9 % 03/21/2025 7:07 AM CDT DTL Erythrocytes 4.42 3.92 - 5.13 x10(12)/L 03/21/2025 7:07 AM CDT DTL MCV 86.9 78.2 - 97.9 fL 03/21/2025 7:07 AM CDT DTL RBC Distrib Width 12.4 12.2 - 16.1 % 03/21/2025 7:07 AM CDT DTL Platelet Count 357 157 - 371 x10(9)/L 03/21/2025 7:07 AM CDT DTL Leukocytes 12.5(H) 3.4 - 9.6 x10(9)/L 03/21/2025 7:07 AM CDT DTL Blood (Blood, Venous) 03/21/2025 6:40 AM CDT 03/21/2025 6:58 AM CDT us Mana Monroy M.D. LAB BLOOD ADD-ON Final Result [facility] [address] DTL [facility] [place] [address] [place] [address] * Glucose, POCT (03/21/2025 3:22 AM CDT) Glucose, POCT, B 139 70 - 140 mg/dL 03/21/2025 3:24 AM CDT PCDE Last Intake 2-3 hours 03/21/2025 3:24 AM CDT PCDE Blood 03/21/2025 3:22 AM CDT 03/21/2025 3:25 AM CDT Unknown Provider LAB POCT ORDERABLES-MANUAL Mi l Result Performing Organization Address City/[facility]/ZIP Co de Phone Number POC [employer] [facility] [address] [place] [address], [facility] PCDE [facility] 200 [place] [address] * (ABNORMAL) Grp B Strep (S. agalactiae) Culture (03/21/2025 1:30 AM CDT) Pathologist [facility] Grp B Strep (S. agalactiae) Culture STREPTOCOCCUS AGALACTIAE(A) 03/24/2025 1:14 PM CDT DTL Swab (Vagina-Rectum) 03/21/2025 1:30 AM CDT 03/21/2025 2:26 AM CDT Comment:Specimen Source Site : Swab Mana Monroy M.D. LAB MICROBIOLOGY - GENERAL ORD ERABLES Final Result Performing Organization Address [facility] Co de Phone Number [facility] [address] [place], [place] [id number] [place] [address] [facility] [address] [place] [address] * Glucose, POCT (03/21/2025 12:30 AM CDT) Glucose, POCT, B 103 70 - 140 mg/dL 03/21/2025 12:32 AM CDT PCDE Site Capillary 03/21/2025 12:32 AM CDT PCDE Blood 03/21/2025 12:3 0 AM CDT 03/21/2025 12:32 AM CDT us Unknown Provider LAB POCT ORDERABLES-MANUAL Mi l Result Performing Organization Address City/[facility]/ZIP Co de Phone Number POC [facility] [address] [place] [address], [facility] PCDE [facility] [address] [place] [address] * Type and Screen (with Reflex Antibody ID) (03/20/2025 11:44 PM CDT) ABORh O Pos Not applicable 03/21/2025 1:14 AM CDT ETRM Antibody Screen Negative Negative 03/21/2025 1:31 AM CDT ETRM Type & Screen Expiration 03/23/2025 23:59 03/21/2025 1:14 AM CDT ETRM Testing Location [place] DEFAULT 03/20/2025 11:50 PM CDT ETRM Blood (Blood, Venous) 03/20/2025 11:44 PM CDT 03/20/2025 11:50 PM CDT Mana Monroy M.D. LAB BLOOD BANK TEST ORDERABLES Final Result Performing Organization Address City/[facility]/ZIP Co de Phone Number [facility] [address] [place] [address], [facility] ETRM [facility] [place] [address] [place] [address] * Syphilis IgG w/ Reflex, EIA, S (RST/FLA) (03/20/2025 11:44 PM CDT) Pathologist [facility] Syphilis IgG w/ Reflex, EIA, S Nonreactive Nonreactive 03/23/2025 2:22 PM CDT [facility] Comment: No serologic evidence of infection with T. pallidum (syphilis). Repeat testing may be considered in patients with suspected acute or primary syphilis in 2-4 weeks. For additional information on interpretation of the syphilis reverse algorithm and results, see: [email or web address] Blood (Blood, Venous) 03/20/2025 11:44 PM CDT 03/21/2025 9:19 AM CDT Mana Monroy M.D. LAB MICROBIOLOGY - BLOOD ORDER XIMENA Final Result [facility] [address] [place] [address] [facility] [address] [address] * (ABNORMAL) CBC without Differential (03/20/2025 11:44 PM CDT) Hemoglobin 13.9 11.6 - 15.0 g/dL 03/21/2025 12:03 AM CDT DTL Hematocrit 40.1 35.5 - 44.9 % 03/21/2025 12:03 AM CDT DTL Erythrocytes 4.67 3.92 - 5.13 x10(12)/L 03/21/2025 12:03 AM CDT DTL MCV 85.9 78.2 - 97.9 fL 03/21/2025 12:03 AM CDT DTL RBC Distrib Width 13.0 12.2 - 16.1 % 03/21/2025 12:03 AM CDT DTL Platelet Count 369 157 - 371 x10(9)/L 03/21/2025 12:03 AM CDT DTL Leukocytes 12.0(H) 3.4 - 9.6 x10(9)/L 03/21/2025 12:03 AM CDT DTL Blood (Blood, Venous) 03/20/2025 11:44 PM CDT 03/20/2025 11:54 PM CDT Mana Monroy M.D. LAB BLOOD ADD-ON Final Result [facility] [address] [place] [address], [facility] [address] [place] [address] * (ABNORMAL) Comprehensive Metabolic Panel (03/20/2025 11:44 PM CDT) Potassium, S 4.0 3.6 - 5.2 mmol/L 03/21/2025 12:17 AM CDT DTL Sodium, S 137 135 - 145 mmol/L 03/21/2025 12:17 AM CDT DTL Chloride, S 103 98 - 107 mmol/L 03/21/2025 12:17 AM CDT DTL Bicarbonate, S 23 22 - 29 mmol/L 03/21/2025 12:17 AM CDT DTL Anion Gap 11 7 - 15 03/21/2025 12:17 AM CDT DTL BUN (Blood Urea Nitrogen), S 6 6 - 21 mg/dL 03/21/2025 12:17 AM CDT DTL Creatinine 0.60 0.59 - 1.04 mg/dL 03/21/2025 12:17 AM CDT DTL Estimated GFR (eGFR) >90 >=60 mL/min/BS A 03/21/2025 12:17 AM CDT DTL Comment: Estimated GFR calculated using the 2020 CKD_EPI creatinine equation. Calcium, Total, S 8.0(L) 8.6 - 10.0 mg/dL 03/21/2025 12:17 AM CDT DTL Glucose, S 95 70 - 140 mg/dL 03/21/2025 12:17 AM CDT DTL Protein, Total, S 5.8(L) 6.3 - 7.9 g/dL 03/21/2025 12:17 AM CDT DTL Albumin, S 3.4(L) 3.5 - 5.0 g/dL 03/21/2025 12:17 AM CDT DTL Aspartate Aminotransferase (AST), S 48(H) 8 - 43 U/L 03/21/2025 12:17 AM CDT DTL Alkaline Phosphatase, S 136(H) 35 - 104 U/L 03/21/2025 12:17 AM CDT DTL Alanine Aminotransferase (ALT), S 76(H) 7 - 45 U/L 03/21/2025 12:17 AM CDT DTL Bilirubin, Total, S 0.2 0.0 - 1.2 mg/dL 03/21/2025 12:17 AM CDT DTL Blood (Blood, Venous) 03/20/2025 11:44 PM CDT 03/21/2025 12:03 AM CDT Mana Monroy M.D. LAB BLOOD ADD-ON Final Result [facility] [address] [place] [address], [place] [facility] [address] [place] [address] documented in this encounter Visit Diagnoses Diagnosis Preeclampsia (HCC)- Primary Preeclampsia (HCC) 34 Weeks Gestation (HCC) 34 Weeks Gestation (HCC) Complication Morbid Obesity Body Mass Index Greater Than 40 (HCC) Multigravida Advanced Maternal Age Affecting Management (HCC) Diabetes Mellitus Gestational (HCC) Preeclampsia (HCC) 34 Weeks Gestation (HCC) documented in this encounter Admitting Diagnoses Diagnosis 34 Weeks Gestation (HCC) documented in this encounter Administered Medications Inactive Administered Medications - up to 3 most recent administrations Medication Order MAR Action Action Date Dose Rate Site acetaminophen tablet 1,000 mg (TylenoL) 1,000 mg, oral, Every 6 hours PRN, headaches, moderate pain or score 4-6 of 10, mild pain or score 1-3 of 10, Starting on 03/21/25 at 0036, Starting with ibuprofen, alternate acetaminophen and ibuprofen with 3 hours intervals, if patient states as preference, may start with acetaminophen. Given 03/21/2025 12:53 AM CDT 1,000 mg alum-mag hydroxide-simeth 200-200-20 mg/5 mL suspension 30 mL (Maalox) 30 mL, oral, Every 4 hours PRN, indigestion, Per patient preference, Starting on 03/21/[address] tablet 81 mg 81 mg, oral, Daily, First dose on 03/21/25 at 0900, Swallow whole. Do NOT crush, chew, or split tablet. Given 03/24/2025 8:23 AM CDT 81 mg Given 03/23/2025 9:46 AM CDT 81 mg Given 03/22/2025 9:40 AM CDT 81 mg betamethasone acetate & sodium phosphate injection 12 mg (Celestone Soluspan) 12 mg, intramuscular, Every 24 hours, First dose on 03/21/25 at 0100, For 2 doses, Protect from light. Given 03/22/2025 2:05 AM CDT 12 mg Right Ventrogluteal Given 03/21/2025 1:02 AM CDT 12 mg Le ft Ventrogluteal calcium carbonate chewable tablet 400 mg of calcium (Tums) 400 mg of calcium, oral, Every 2 hour PRN, indigestion, Per patient preference, Starting on 03/21/25 at 0033, Doses listed are in mg of elemental calcium. Take with food. 500 mg calcium carbonate contains 200 mg of elemental calcium. Given 03/24/2025 2:05 AM CDT 400 mg of calcium Given 03/23/2025 6:02 PM CDT 400 mg of calcium Given 03/23/2025 12:20 PM CDT 400 mg of calcium dextrose 40% gel 15 g of dextrose (Glutose) 15 g of dextrose, oral, As needed, low blood sugar, For glucose 54-70 mg/dL, Starting on Sun03/20/25 at 2357, If patient is conscious and able to swallow safely and has a fuctioning gastrointestinal tract or on Acarbose (Precose ) or Miglitol (Glyset ). May use tablets or gel. For hypoglycemia treatment. 1 g dextrose 40% gel = 0.4 g of dextrose (Example: 37.5 g dextrose 40% gel = 15 g of dextrose). dextrose 40% gel 30 g of dextrose (Glutose) 30 g of dextrose, oral, As needed, low blood sugar, For glucose less than 54 mg/dL, Starting on Sun03/20/25 at 2357, If no intravenous access is available and the patient is conscious and able to swallow safely and has a fuctioning gastrointestinal tract or on Acarbose (Precose ) or Miglitol (Glyset ). May use tablets or gel. For hypoglycemia treatment. 1 g dextrose 40% gel = 0.4 g of dextrose (Example: 37.5 g dextrose 40% gel = 15 g of dextrose). diphenhydrAMINE capsule 25 mg (BenadryL) 25 mg, oral, Bedtime PRN, sleep, Starting on 03/21/25 at 0423 glucose chewable tablet 4 tablet 4 tablet, oral, As needed, low blood sugar, For glucose 54-70 mg/dL, Starting on Sun03/20/25 at 2357, If patient is conscious and able to swallow safely and has a functioning gastrointestinal tract or on Acarbose (Precose ) or Miglitol (Glyset ). Administer 4 tablets to total 16 grams. May use tablets or gel. For hypoglycemia treatment. glucose chewable tablet 8 tablet 8 tablet, oral, As needed, low blood sugar, For glucose less than 54 mg/dL, Starting on Sun03/20/25 at 2357, If no intravenous access is available and the patient is conscious and able to swallow safely and has a functioning gastrointestinal tract or on Acarbose (Precose ) or Miglitol (Glyset ). Administer 8 tablets to total 32 grams. May use tablets or gel. For hypoglycemia treatment. insulin aspart U-100 injection 0-7 Units (NovoLOG FlexPen) 0-7 Units, subcutaneous, 3 times daily, First dose on 03/21/25 at 1000, See postprandial correction scale. Target blood glucose range: less than 180 mg/dL 2 hours postprandial., Insulin Scale: Correction Scale 1, 140-179: 1 unit, 180-219: 2 units, 220-259: 3 units, 260-299: 4 units, 300-339: 5 units, 340-379: 6 units, 380-399: 7 units, greater than 399: Call service writing insulin orders insulin glargine injection 10 Units 10 Units, subcutaneous, Daily at bedtime, First dose on Sun03/22/25 at 2100 Given 03/22/2025 8:26 PM CDT 10 Units Left Upper Arm (Back) insulin glargine injection 12 Units 12 Units, subcutaneous, Daily at bedtime, First dose (after last modification) on Sun03/23/25 at 2100 Given 03/23/2025 9:05 PM CDT 12 Units Right Upper Arm (Back) Lactated Ringer's bolus 500 mL 500 mL, intravenous, at 1,000 mL/hr, Administer over 30 Minutes, As needed, If Category II or III heart rate pattern, Starting on Sun03/21/25 at 0033, For 1 dose magnesium sulfate 40 mg/mL in water 500 mL infusion - ADS Override Pull Starting on Sun03/20/25 at 2333, For 1 dose, Created by cabinet override 20 grams in 500 mL magnesium sulfate 40 mg/mL in water 500 mL infusion 2 g/hr (50 mL/hr), intravenous, Continuous, Starting on 03/21/25 at 0000, 20 grams in 500 mL New Bag 03/21/2025 12:13 AM CDT 2 g/hr 50 mL/hr melatonin tablet 5 mg 5 mg, oral, Bedtime PRN, sleep, Starting on 03/21/25 at 0423 ondansetron (PF) injection 4 mg (Zofran) 4 mg, intravenous, Every 6 hours PRN, vomiting, nausea, Starting on 03/21/25 at 0033, If patient unable to take oral ondansetron ODT disintegrating tablet 4 mg (Zofran-ODT) 4 mg, oral, Every 6 hours PRN, vomiting, nausea, Starting on 03/21/25 at 0033, First line When splitting ODT at bedside, handle with gloves and a pill splitter to prevent moisture contact. promethazine injection 6.25 mg (Phenergan) 6.25 mg, intravenous, As needed, vomiting, nausea, Starting on 03/21/25 at 0033, If symptoms continue 30 minutes after ondansetron and patient unable to take oral. Frequency: May repeat promethazine 6.25 mg IV every 10 minutes until nausea/vomiting relieved or until 25 mg given in a 4 hour period. promethazine tablet 12.5 mg (Phenergan) 12.5 mg, oral, As needed, nausea, vomiting, Starting on 03/21/25 at 0033, If symptoms continue 30 minutes after ondansetron. Frequency: May repeat in 30 minutes once if nausea and vomiting unrelieved not to exceed 25 mg given in a 4 hour period. sennosides tablet 8.6 mg (Senokot) 8.6 mg, oral, Daily, First dose on 03/21/25 at 0900 sodium chloride 0.9 % injection 10 mL 10 mL, intravenous, As needed, line care, Starting on 03/21/25 at 0033, Peripheral Intravenous Catheter and Rapid Infusion Catheter, prior to blood sampling, post blood transfusion or post blood sampling sodium chloride 0.9 % injection 3 mL 3 mL, intravenous, As needed, line care, Starting on 03/21/25 at 0033, Prior to and following infusion and between multiple consecutive infusions: sodium chloride 0.9 % injection sodium chloride 0.9 % injection 3 mL 3 mL, intravenous, Every 12 hours scheduled, First dose on 03/21/25 at 0900, Peripheral Intravenous Catheter and Rapid Infusion Catheter, when no infusion to maintain patency documented in this encounter Active and Recently Administered Medications Times are shown in CDT. Scheduled Medication Order 03/22/2025 03/23/2025 03/24/[address] tablet 81 mg 81 mg, oral, Daily, First dose on 03/21/25 at 0900, Swallow whole. Do NOT crush, chew, or split tablet. 0940 (Given - Provider: Nilo Mcneal, R.N.) 0946 (Given - Provider: Nilo Mcneal, R.N.) 0823 (Given - Provider: Samia Tracy R.N.) betamethasone acetate & sodium phosphate injection 12 mg (Celestone Soluspan) (COMPLETED) 12 mg, intramuscular, Every 24 hours, First dose on 03/21/25 at 0100, For 2 doses, Protect from light. 0205 (Given - Provider: Michaela Liang R.N.) insulin aspart U-100 injection 0-7 Units (NovoLOG FlexPen) 0-7 Units, subcutaneous, 3 times daily, First dose on 03/21/25 at 1000, See postprandial correction scale. Target blood glucose range: less than 180 mg/dL 2 hours postprandial., Insulin Scale: Correction Scale 1, 140-179: 1 unit, 180-219: 2 units, 220-259: 3 units, 260-299: 4 units, 300-339: 5 units, 340-379: 6 units, 380-399: 7 units, greater than 399: Call service writing insulin orders 1118 (Not Given - Provider: Nilo Mcneal, R.N. - Reason: Order parameters not met)153 (Not Given - Provider: Nilo Mcneal, R.N. - Reason: Order parameters not met)2028 (Not Given - Provider: Michaela Liang R.N. - Reason: Order parameters not met - Comment: BG 115) 1035 (Not Given - Provider: Nilo Mcneal, R.N. - Reason: Order parameters not met)153 (Not Given - Provider: Nilo Mcneal, R.N. - Reason: Order parameters not met)2106 (Not Given - Provider: Michaela Liang R.N. - Reason: Order parameters not met - Comment: BG 106) 1043 (Not Given - Provider: Samia Tracy R.N. - Reason: Order parameters not met) insulin glargine injection 10 Units (CANCELED) 10 Units, subcutaneous, Daily at bedtime, First dose on 03/22/25 at 2100 2025 (Given - Provider: Michaela Liang R.N.) insulin glargine injection 12 Units 12 Units, subcutaneous, Daily at bedtime, First dose (after last modification) on 03/23/25 at 2100 2104 (Given - Provider: Michaela Liang R.N.) sennosides tablet 8.6 mg (Senokot) 8.6 mg, oral, Daily, First dose on 03/21/25 at 0900 0944 (Not Given - Provider: Nilo Mcneal, R.N. - Reason: Patient/family refused) 0946 (Not Given - Provider: Nilo Mcneal, R.N. - Reason: Patient/family refused) 0902 (Not Given - Provider: Samia Tracy R.N. - Reason: Patient/family refused) sodium chloride 0.9 % injection 3 mL 3 mL, intravenous, Every 12 hours scheduled, First dose on 03/21/25 at 0900, Peripheral Intravenous Catheter and Rapid Infusion Catheter, when no infusion to maintain patency 0944 (Canceled Entry - Provider: Drake McnealSRohini, R.N.)2034 (Not Given - Provider: Michaela Liang R.N. - Reason: Order parameters not met) 0946 (Canceled Entry - Provider: Drake McnealSRohini, R.N.)2106 (Not Given - Provider: Michaela Liang R.N. - Reason: Order parameters not met) 0902 (Not Given - Provider: Samia Tracy R.N. - Reason: Loss of IV access) PRN Medication Order 03/22/2025 03/23/202503/24/2025 acetaminophen tablet 1,000 mg (TylenoL) 1,000 mg, oral, Every 6 hours PRN, headaches, moderate pain or score 4-6 of 10, mild pain or score 1-3 of 10, Starting on 03/21/25 at 0036, Starting with ibuprofen, alternate acetaminophen and ibuprofen with 3 hours intervals, if patient states as preference, may start with acetaminophen. alum-mag hydroxide-simeth 200-200-20 mg/5 mL suspension 30 mL (Maalox)(Linked Group 1) 30 mL, oral, Every 4 hours PRN, indigestion, Per patient preference, Starting on 03/21/25 at 0033 2023 (See Alternative - Provider: Michaela Liang R.N.) 0707 (See Alternative - Provider: Nilo Mcneal, R.N.)1220 (See Alternative - Provider: Nilo Mcneal, R.N.)180 (See Alternative - Provider: Nilo Mcneal, R.N.) 0205 (See Alternative - Provider: Kelsey MerchantN.) calcium carbonate chewable tablet 400 mg of calcium (Tums)(Linked Group 1) 400 mg of calcium, oral, Every 2 hour PRN, indigestion, Per patient preference, Starting on 03/21/25 at 0033, Doses listed are in mg of elemental calcium. Take with food. 500 mg calcium carbonate contains 200 mg of elemental calcium. 2023 (Given - Provider: Michaela Liang R.N.) 0707 (Given - Provider: Carlos Mcneal., R.N.)1220 (Given - Provider: Nilo Mcneal, R.N.)180 (Given - Provider: Nilo Mcneal, R.N.) 0205 (Given - Provider: Brandy Merchant.N.) dextrose 40% gel 15 g of dextrose (Glutose) 15 g of dextrose, oral, As needed, low blood sugar, For glucose 54-70 mg/dL, Starting on Sun03/20/25 at 2357, If patient is conscious and able to swallow safely and has a fuctioning gastrointestinal tract or on Acarbose (Precose ) or Miglitol (Glyset ). May use tablets or gel. For hypoglycemia treatment. 1 g dextrose 40% gel = 0.4 g of dextrose (Example: 37.5 g dextrose 40% gel = 15 g of dextrose). dextrose 40% gel 30 g of dextrose (Glutose) 30 g of dextrose, oral, As needed, low blood sugar, For glucose less than 54 mg/dL, Starting on Sun03/20/25 at 2357, If no intravenous access is available and the patient is conscious and able to swallow safely and has a fuctioning gastrointestinal tract or on Acarbose (Precose ) or Miglitol (Glyset ). May use tablets or gel. For hypoglycemia treatment. 1 g dextrose 40% gel = 0.4 g of dextrose (Example: 37.5 g dextrose 40% gel = 15 g of dextrose). diphenhydrAMINE capsule 25 mg (BenadryL) 25 mg, oral, Bedtime PRN, sleep, Starting on 03/21/25 at 0423 glucose chewable tablet 4 tablet 4 tablet, oral, As needed, low blood sugar, For glucose 54-70 mg/dL, Starting on Sun03/20/25 at 2357, If patient is conscious and able to swallow safely and has a functioning gastrointestinal tract or on Acarbose (Precose ) or Miglitol (Glyset ). Administer 4 tablets to total 16 grams. May use tablets or gel. For hypoglycemia treatment. glucose chewable tablet 8 tablet 8 tablet, oral, As needed, low blood sugar, For glucose less than 54 mg/dL, Starting on Sun03/20/25 at 2357, If no intravenous access is available and the patient is conscious and able to swallow safely and has a functioning gastrointestinal tract or on Acarbose (Precose ) or Miglitol (Glyset ). Administer 8 tablets to total 32 grams. May use tablets or gel. For hypoglycemia treatment. Lactated Ringer's bolus 500 mL 500 mL, intravenous, at 1,000 mL/hr, Administer over 30 Minutes, As needed, If Category II or III heart rate pattern, Starting on 03/21/25 at 0033, For 1 dose melatonin tablet 5 mg 5 mg, oral, Bedtime PRN, sleep, Starting on 03/21/25 at 0423 ondansetron (PF) injection 4 mg (Zofran)(Linked Group 2) 4 mg, intravenous, Every 6 hours PRN, vomiting, nausea, Starting on 03/21/25 at 0033, If patient unable to take oral ondansetron ODT disintegrating tablet 4 mg (Zofran-ODT)(Linked Group 2) 4 mg, oral, Every 6 hours PRN, vomiting, nausea, Starting on 03/21/25 at 0033, First line When splitting ODT at bedside, handle with gloves and a pill splitter to prevent moisture contact. promethazine injection 6.25 mg (Phenergan)(Linked Group 3) 6.25 mg, intravenous, As needed, vomiting, nausea, Starting on 03/21/25 at 0033, If symptoms continue 30 minutes after ondansetron and patient unable to take oral. Frequency: May repeat promethazine 6.25 mg IV every 10 minutes until nausea/vomiting relieved or until 25 mg given in a 4 hour period. promethazine tablet 12.5 mg (Phenergan)(Linked Group 3) 12.5 mg, oral, As needed, nausea, vomiting, Starting on 03/21/25 at 0033, If symptoms continue 30 minutes after ondansetron. Frequency: May repeat in 30 minutes once if nausea and vomiting unrelieved not to exceed 25 mg given in a 4 hour period. sodium chloride 0.9 % injection 10 mL 10 mL, intravenous, As needed, line care, Starting on 03/21/25 at 0033, Peripheral Intravenous Catheter and Rapid Infusion Catheter, prior to blood sampling, post blood transfusion or post blood sampling sodium chloride 0.9 % injection 3 mL 3 mL, intravenous, As needed, line care, Starting on 03/21/25 at 0033, Prior to and following infusion and between multiple consecutive infusions: sodium chloride 0.9 % injection Linked Groups Order Group 1: alum-mag hydroxide-simeth 200-200-20 mg/5 mL suspension 30 mL (Maalox)Jump to med 30 mL, oral, Every 4 hours PRN, indigestion, Per patient preference, Starting on 03/21/25 at 0033 Or calcium carbonate chewable tablet 400 mg of calcium (Tums)Jump to med 400 mg of calcium, oral, Every 2 hour PRN, indigestion, Per patient preference, Starting on 03/21/25 at 0033, Doses listed are in mg of elemental calcium. Take with food. 500 mg calcium carbonate contains 200 mg of elemental calcium. Group 2: ondansetron ODT disintegrating tablet 4 mg (Zofran-ODT)Jump to med 4 mg, oral, Every 6 hours PRN, vomiting, nausea, Starting on 03/21/25 at 0033, First line When splitting ODT at bedside, handle with gloves and a pill splitter to prevent moisture contact. Or ondansetron (PF) injection 4 mg (Zofran)Jump to med 4 mg, intravenous, Every 6 hours PRN, vomiting, nausea, Starting on 03/21/25 at 0033, If patient unable to take oral Group 3: promethazine tablet 12.5 mg (Phenergan)Jump to med 12.5 mg, oral, As needed, nausea, vomiting, Starting on 03/21/25 at 0033, If symptoms continue 30 minutes after ondansetron. Frequency: May repeat in 30 minutes once if nausea and vomiting unrelieved not to exceed 25 mg given in a 4 hour period. Or promethazine injection 6.25 mg (Phenergan)Jump to med 6.25 mg, intravenous, As needed, vomiting, nausea, Starting on 03/21/25 at 0033, If symptoms continue 30 minutes after ondansetron and patient unable to take oral. Frequency: May repeat promethazine 6.25 mg IV every 10 minutes until nausea/vomiting relieved or until 25 mg given in a 4 hour period. documented in this encounter Additional Health Concerns Assessment Noted Time PHQ-9 Depression Total Score: 6 01/08/20 25 2:52 PM CDT documented as of this encounter Care Teams Director Of Direct Marketing Relationship Specialty Start Date End Date Whitney Huber APRN, C.N.P. [address] [place] [phone] PCP - General 04/27/23 documented as of this encounter
--- OUTSIDE RECORDS SUMMARY | 2025-03-24 08:10 | XMS_ITS | Encounter Summary ---
Author Organization [facility] Address [address] [place] [address] Care Team Providers Care Belly Packer Name Role Phone Whitney Huber APRN C.N.P. Primary Care [facility] Reason for Visit * Auth/Cert (Routine) Specialty Diagnoses / Procedures Referred By Contac t Referred To Contact Diagnoses 34 Weeks Gestation (HCC) Procedures DIRECT INPT Referral ID Status Reason Start Date Expiration Date Visits Re quested Visits Authorized [id number] 1 1 Encounter Details Date Type Department Care Team (Latest Contact Info) Description 03/24/2025 8:10 AM CDT - 03/24/2025 11:59 PM CDT Hospital Encounter Department of Obstetrics and Gynecology in [place], [place] [address] [place] [address] Kimberlee Moreira M.D. [address] [place] [address] Discharge Disposition: Home or Self Care Social History Tobacco Use Types Packs/Day Years Used Date Smoking Tobacco: Never Smokeless Tobacco: Never Alcohol Use Standard Drinks/Week Comments Not Currently 0 (1 standard drink = 0.6 oz pur e alcohol) rarely [facility] Utilities Answer Date Recorded In the past 12 months has th e electric, gas, oil, or water [employer] threatened to shut off services in your [...] Sex Assigned at Female 11/13/2017 2:42 PM HYPERTRICHOLOGIST Legal Sex Female 10:11 PM HYPERTRICHOLOGIST Gender Identity Female 11/13/2017 2:42 PM HYPERTRICHOLOGIST Sexual Orientation Straight 11/13/2017 2: 42 PM HYPERTRICHOLOGIST 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 blood sugar diagnostic stripsIndication s:Multigravida Advanced Maternal Age Affecting Management (HCC) 2 test daily. For blood sugar monitoring in 100 test 1 01/07/2025 blood-glucose meter miscIndications: Multigravida Advanced Maternal Age [...] perioral dermatitis twice daily. 45 g 01/15/2025 [id number] 27 mg iron- 1 mg tablet Take 1 tablet by mouth daily. documented as of this encounter Plan of Treatment Upcoming Encounters Date Type Department Care Team (Late st Contact Info) Description 04/29/2025 12:00 PM CDT Office Visit Department of Family Medicine, [facility], in [place], [place] [address] [phone] Soni Krueger M.D. [address] [phone] documented as of this encounter Procedures Procedure Name Priority Date/Time Associated Diagnosis Comments US OB FOLLOW-UP AND OR GROWTH MUNIZ RAD - Routine (most inpatients and all outpatients) 03/24/2025 8:54 AM CDT documented in this encounter Results * US OB Follow Up and or [...] 6 lb 4 oz EFW by Hadlock ([id number]) Extremities / Bony Struc Biometry: FL / [...] 6 lb 4 oz EFW by Hadlock ([id number]) Extremities / Bony Struc Biometry: FL / BPD 0.80 FL / HC 0.22 FL / AC 0.20 General Evaluation Cardiac activity present. FHR 154 bpm. Presentation: Cephalic Amniotic fluid: Amount of AF: normal. MVP 4.2 cm Anatomy The following structures appear normal: Abdomen Stomach. Bladder. Impression ========= Muniz intrauterine . Cephalic presentation. composite biometry consistent with assigned gestational age ([id number] g (6 lb 4 oz) 85%, AC >99%). Amniotic fluid volume normal (MVP 4.2 cm). us Kimberlee Moreira M.D. IMG OB US PROCEDURES Final Result documented in this encounter Visit Diagnoses Not on filedocumented in this encounter Additional Health Concerns Assessment Noted Time PHQ-9 Depression Total Score: 6 01/08/20 25 2:52 PM CDT documented as of this encounter Care Teams Belly Packer Relationship Specialty Start Date End Date Whitney Huber APRN, C.N.P. [address] [place] [phone] PCP - General 04/27/23 documented as of this encounter
--- OUTSIDE RECORDS SUMMARY | 2025-03-26 11:00 | XMS_ITS | Encounter Summary ---
Author Organization [facility] Address [address] [place] [id number] Care Team Providers Care Tour Escort Name Role Phone Whitney Huber APRN C.N.P. Primary Care [facility] Reason for Visit * Outpatient (Routine) - Closed Specialty Diagnoses / Procedures Referred By Contac t Referred To Contact Diagnoses Preeclampsia (HCC) 34 Weeks Gestation (HCC) Procedures nonstress test - martinez Gilma Jaramillo M.D. [address] [place] [address] Phone: tel: fax: [facility] Referral ID Status Reason Start Date Expiration Date Visits Re quested Visits Authorized [id number] Closed 03/24/2025 06/24/2026 1 1 Encounter Details Date Type Department Care Team (Latest Contact Info) Description 03/26/2025 11:00 AM CDT Routine Department of Obstetrics and Gynecology in [place], [place] [address] [place] [phone] Gilma Jaramillo M.D. [address] [place] [phone] Shani Pimentel R.N. [address] [place] [phone] Preeclampsia (HCC); 34 Weeks Gestation (HCC) Social History Tobacco Use Types Packs/Day Years Used Date Smoking Tobacco: Never Smokeless Tobacco: Never Alcohol Use Standard Drinks/Week Comments Not Currently 0 (1 standard drink = 0.6 oz pur e alcohol) rarely [facility] Utilities Answer Date Recorded In the past 12 months has e electric, gas, oil, or water company threatened to shut off services in your [...] Sex Assigned at Female 11/13/2017 2:42 PM BULB TESTER Legal Sex Female 10:11 PM BULB TESTER Gender Identity Female 11/13/2017 2:42 PM BULB TESTER Sexual Orientation Straight 11/13/2017 2: 42 PM BULB TESTER 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 - 03/26/2025 11:00 AM CDTAssociated Order(s): NONSTRESS TEST - MARTINEZ SUBJECTIVE Jennifer Mariano, a at 34w6d with [...] proceeding to provider visit. Shani Pimentel R.N. Cosigned by Jairo Olivares M.D. at 03/26/2025 12:19 PM CDT Associated attestation - Jairo Olivares M.D. - 03/26/2025 12:19 PM CDT Duplicating Machine Operator interpretation: NST reactive and reassuring Start time: 1052 End time: 1125 documented in this encounter Plan of Treatment Upcoming Encounters Date Type Department Care Team (Late st Contact Info) Description 04/29/2025 12:00 PM CDT Office Visit Department of Family Medicine, [facility], in [place], [place] [address] [place] [phone] Soni Krueger M.D. [address] [place] [phone] documented as of this encounter Procedures Procedure Name Priority Date/Time Associated Diagnosis Comments NONSTRESS TEST - MARTINEZ Routine 03/26/2025 11:00 AM CDT Preeclampsia (HCC) 34 Weeks Gestation (HCC) documented in this encounter Results * nonstress test - martinez (03/26/2025 11:00 AM CDT) Narrative Jairo Olivares [...] M.D. OB GYNE ORDERABLES Final Resu lt documented in this encounter Visit Diagnoses Diagnosis Preeclampsia (HCC) 34 Weeks Gestation (HCC) documented in this encounter Additional Health Concerns Assessment Noted Time PHQ-9 Depression Total Score: 6 01/08/20 25 2:52 PM CDT documented as of this encounter Care Teams Tour Escort Relationship Specialty Start Date End Date Whitney Huber APRN, C.N.P. [address] [address] PCP - General 04/27/23 documented as of this encounter
--- OUTSIDE RECORDS SUMMARY | 2025-03-26 12:00 | XMS_ITS | Encounter Summary ---
Author Organization [facility] Address [address] [place] [address] Care Team Providers Care Quarter Folder Name Role Phone Whitney Huber APRN, C.N.P. Primary Care [facility] Reason for Referral * Outpatient (Routine) - Authorized Specialty Diagnoses / Procedures Referred By Mickie sow Referred To Contact Diagnoses Preeclampsia (HCC) Procedures nonstress test - martinez Kimberlee Moreira M.D. [address] [place] [address] Phone: tel: fax: [facility] Referral ID Status Reason Start Date Expiration Date V isits Requested Visits Authorized [id number] Authorized 03/26/2025 06/26/2026 1 1 Reason for Visit * Outpatient (Routine) - Closed Specialty Diagnoses / Procedures Referred By Mickie sow Referred To Contact Obstetrics and Gynecology Gilma Jaramillo M.D. [address] [place] [address] Phone: tel: fax: [facility] Referral ID Status Reason Start Date Expiration Date Visits Re quested Visits Authorized [id number] Closed 03/24/2025 09/23/2026 1 1 Encounter Details Date Type Department Care Team (Latest Contact Info) Description 03/26/2025 12:00 PM CDT Routine Department of Obstetrics and Gynecology in [place], [place] [address] [place] [address] Kimberlee Moreira M.D. [address] [place] [address] Preeclampsia (HCC) (Primary Dx); Diabetes Mellitus Gestational (HCC); Multigravida Advanced Maternal Age Affecting Management (HCC); Body Mass Index 45.0 To 49.9 Adult (HCC) Social History Tobacco Use Types Packs/Day Years Used Date Smoking Tobacco: Never Smokeless Tobacco: Never Alcohol Use Standard Drinks/Week Comments Not Currently 0 (1 standard drink = 0.6 oz pur e alcohol) rarely [facility] Utilities Answer Date Recorded In the past 12 months has e [employer], gas, oil, or water [employer] threatened to shut off services in your [...] Sex Assigned at Female 11/13/2017 2:42 PM AVIATION ENGINEER Legal Sex Female 10:11 PM AVIATION ENGINEER Gender Identity Female 11/13/2017 2:42 PM AVIATION ENGINEER Sexual Orientation Straight 11/13/2017 2: 42 PM AVIATION ENGINEER 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 - 03/26/2025 12:00 PM CDT Maternal Medicine Follow-up SUBJECTIVE HISTORY OF PRESENT ILLNESS Jennifer Mariano is a 39 y.o. at 34w6d EVELINA 05/01/2025 by 9w6d US NIPT not performed presenting in follow-up after recent hospitalization for preeclampsia without severe features. She originally presented [facility] on 03/20/25 for blood pressure evaluation after a notedmild range blood pressure (140s/90s) in clinic on 03/19. At that time, blood pressures were again noted to be mild range. Laboratory evaluation notable for H/H, plts, creatinine WNL, AST 56, ALT 82. She remained asymptomatic with reassuring maternal and statuses and was transferred to [facility] on magnesium sulfate. At the time of arrival here, mild range blood pressures persisted, no severe range, completely asymptomatic. Repeat laboratory evaluation notable for AST 48, ALT 76, H/H, plts, creatinine stable and within normal limits, sFlt1:PlGF 96. Magnesium sulfate was discontinued. Blood pressures remained mild range. Serial laboratory evaluation noted downtrending liver enzymes,no additional abnormalities. She remained asymptomatic. Repeat US demonstrated normal growth,85%ile, AC >99%ile. She was deemed clinically stable for discharge home with close interval outpatient follow-up. Betamethasone course administered 03/21-03/22. Today, she notes she has been feeling well at home. She continues to measure blood pressures which have ranged 127-140/79-93. All fingersticks in range. She denies headache, vision change, chest pain, shortness of breath, RUQ/epigastric pain, sudden swelling. She has noted a sporadic, intermittent sensation in her RUQ that resolves spontaneously. Repeat HELLP labs today largely normal, ALT minimally elevated at 50 though still downtrending. She denies contractions, leakage of fluid, vaginal bleeding. Good movement. complications: Preeclampsia without severe features - diagnosed 34w0d (mild range BPs, new elevated urine P:C of 0.82 from 0.14, transaminitis not meeting diagnostic criteria for severe features) GDMA2 - lantus 12 units nightly Advanced maternal age - NIPT declined Prepregnancy BMI 42 Hyperlipidemia 12/2023: cholesterol 263, triglycerides 107, LDL 179, HDL 65 History of FGR diagnosed with Ranjeet-Silver syndrome History of depression OB History Para Term AB Living 5 [...] EPI N PATRICK Obstetric Comments Risk Stratification=green REVIEW OF SYSTEMS Pertinent positives and negatives as per HPI. OBJECTIVE BP 128/86, HR 87, T 36.7, SpO2 97% Gen: NAD Cardiac: Regular rate Pulm: Breathing comfortably on RA Abd: Gravid No ultrasound performed today NST - FHR 155/moderate variability/+accels/-decels [place]: acontractile ASSESSMENT / PLAN 39 y.o. at 34w6d EVELINA 05/01/2025 by 9w6d US NIPT not performed presenting in follow-up after recent hospitalization for preeclampsia without severe features. #1 Preeclampsia (HCC) #2 Diabetes Mellitus Gestational (HCC) #3 Multigravida Advanced Maternal Age Affecting Management (HCC) #4 Body Mass Index 45.0 To 49.9 Adult ([facility]) Today, maternal and statuses remain reassuring. Jennifer's blood pressure is normotensive at 128/86. Home values, too, largely normotensive to low mild range. Labs stable and all largely within normal limits with AST/ALT still improving now nearly normalized. She is asymptomatic feeling well overall. We discussed ongoing management for the remainder of this . Targeted delivery timing at this point is 37w0d. Any severe feature including severe range blood pressures >/= 160/110, headache unresponsive to analgesia, vision changes, plts < 100k, creatinine > 1.1 mg/dL, pulmonary edema or any maternal or clinical instability would necessitate delivery. Prior to admission, Jennifer had transitioned care to [facility] as she had desired delivery there. I did note uncertainty regarding whether or not [facility] would be able to resume her care. I noted that at this time, continued home blood pressure/symptom monitoring and twice weekly outpatient follow-up withblood pressure evaluation and surveillance are warranted. Repeat labs in 1 week, too, are recommended. ER/OB triage precautions reviewed in detail. After our visit, Jennifer was able to make contact with [facility] and has confirmed that they can resume her care as desired. Recommendations: : Routine: Continue all care at [facility] Labs: Repeat CBC, CMP at 36w, earlier as clinically indicated Medications: Continue aspirin 81 mg daily until delivery Preeclampsia without severe features: Continue home BP monitoring twice daily Present to local hospital ER/OB triage with any new concerning symptoms or severe range blood pressures GDMA2 Continue 2 hour postprandial and fasting fingersticks Review of glucose log at visits Lantus 12 units nightly, unchanged surveillance: Twice weekly surveillance (BPP or NST) for duration of No need for any additional growth ultrasounds Delivery: [facility]: [facility] Timinw0d, if preeclampsia with severe features develops, at diagnosis Mode: IOL, no contraindication to vaginal : Consider POC fasting fingerstick >12 hours after delivery If fasting 100-199 mg/dL, resume diabetic diet and follow-up w/ PCP If fasting >/= 200 mg/dL, consider endocrine consult prior to discharge 2h 75g OGTT 4-12 weeks Close interval follow-up with PCP for ongoing blood pressure monitoring Approximately 20 minutes were spent in the care of the patient Kimberlee Moreira MD [facility] Fellow Pager [phone] documented in this encounter Plan of Treatment Upcoming Encounters Date Type Department Care Team (Late st Contact Info) Description 04/29/2025 12:00 PM CDT Office Visit Department of Family Medicine, [facility], in [place], [place] [address] [phone] Soni Krueger M.D. [address] [place] [address] Scheduled Orders Name Type Priority Associated Diagnoses Orde r Schedule CBC without Differential Lab Routine Preeclampsia (HCC) Expected: 04/02/2025, Expires: 06/26/2026 nonstress test - martinez OB Routine Preeclampsia (HCC) Expected: 03/30/2025, Expires: 06/26/2026 Comprehensive Metabolic Panel Lab Routine Preeclampsia (HCC) Expected: 04/02/2025, Expires: 06/26/2026 documented as of this encounter Visit Diagnoses Diagnosis Preeclampsia (HCC)- Primary Diabetes Mellitus Gestational (HCC) Multigravida Advanced Maternal Age Affecting Management (HCC) Body Mass Index 45.0 To 49.9 Adult (HCC) documented in this encounter Additional Health Concerns Assessment Noted Time PHQ-9 Depression Total Score: 6 01/08/20 25 2:52 PM CDT documented as of this encounter Care Teams Quarter Folder Relationship Specialty Start Date End Date Whitney Huber APRN, C.N.P. [address] [place] [phone] PCP - General 04/27/23 documented as of this encounter
--- NOTE | 2025-04-21 16:21 | P.LACF_ITS ---
Follow-Up Note: Mom Date of visit Date of visit: 04/21/25 Reason for consultation: Assistance Needed, Low Milk Supply, Infant Weight Concern and Other Visit Code: Visit Patient's Information Allergies No Known Drug Allergies Allergy (Verified 04/20/25 10:10) Delivery Information Delivery type: Vaginal Gestational Age: 36+2 Gestational Weight For Age: AGA Weight: 2.975 kg Last Weight: 2.81 kg Baby's Information Baby's name: Rasheed Mariano Baby's Age at Visit: 17 days Baby's Provider or Clinic: [facility] Current Frequency of Day Feedings: every 3 hrs Frequency of Night Feedings: same Both Breasts: Yes Suck: getting stronger, working on deeper latch Latch: needs shield on left side, less often needs shield on right Length of Time: 10 min ea side Pumping Pumping: Yes Quantity Pumped: 60-70 Supplementing EBM Supplement: Yes Formula Supplement: Yes Baby Elimination Number of Wet Diapers a Day: ea feeding Number of BM a Day: 6+ Breast/Nipple Assessment Breast Shape: Round Engorgement: No Maternal Nipple Condition - Left: Common Nipple Maternal Nipple Condition - Right: Common Nipple Sore Nipples: Yes (slight from pumping) Onsite Observation Pre-feed weight: 3.134 kg Post-Feed weight: 3.158 kg Milk Transferred (mL): 24 Pre-Nursing Left Nipple: Within Normal Limits Pre-Nursing Right Nipple: Within Normal Limits Post-Nursing Left Nipple: Within Normal Limits Post-Nursing Right Nipple: Within Normal Limits Assessments/Interventions Assessments/Interventions: Tasneem latched well and tranferred 24 ml of milk in 10 minutes from RIGHT breast Then tried to latch to LEFT side, suckled, but didn't tranfer milk in 3 minutes and then came off the breast. Tasneem proceeded to take 2 oz via paced bottle feeding after . Discussed this visit with Dr. Duran for feeding plan below: Feeding plan: Breastfeed for 10 min on each breast, listening for active swallowing Pump both breasts for: 20 minutes after each feeding; a full 20 minutes if pumping instead of Feed baby 75-80 ml of pumped milk if just bottle feeding; offer 60ml of milk if BF first, then more if he finishes off bottle. Every other feeding to be EBM fortified to 22 den/oz Every other feeding can be EBM without fortification Weight check in 1 week; if continues to gain weight well, can then drop the fortification Mom to try and add in a power pump session in the morning; she is getting a new wearable pump today so hopes this will make pumping easier. Encouraged mom to track her pump totals to verify the wearable is getting her the same amount of milk as her wall pump. Also encouraged mom to pump every 2 hours for 3-4 pumps in the afternoon to see if this will stimulate her supply,. continue to encourage food, fluids and rest to help with milk supply as well Education provided: Asymmetric latch technique for wide/deep latch to increase milk (need for deep latch for effective milk transfer), Transfer for baby and increase comfort for mom, Supply/demand nature of milk supply, Need for frequent stimulation/milk removal, Use of nipple shield and Pumping for milk management Follow-Up Suggested follow up: Appointment as needed (with in 2 weeks to revisit milk transfer) Recommend baby be seen by provider for:: 1 week for weight check Time Spent Time spent with patient (min): 75 Meds Home Medications and Allergies Home Medications ?Medication ?Instructions ?Recorded ?Confirmed ?Type docosahexaenoic acid 200 mg 200 mg PO DAILY 03/04/25 0 04/20/25 History capsule ( DHA) metronidazole 0.75 % topical gel 1 applic topical BID 03/04/25 04/20/25 History nifedipine 30 mg tablet,extended 30 mg PO Q24H 30 days #30 tabs 04/06/25 04/20/25 Rx release Allergies Allergy/AdvReac Type Severity Reaction Status Date / Time No Known Drug Allergies Allergy Verified 04/20/25 10:10
--- OUTSIDE RECORDS SUMMARY | 2025-04-22 00:54 | XMS_ITS | Clinical Summary ---
Author Organization [facility] [facility] Address [address] [place] [address] Care Team Providers Care Beauty Parlor Cleaner Name Role Phone Kelsea Mclean MD Primary Care Prov ider Allergies No known active allergies Medications escitalopram oxalate (LEXAPRO) 10 mg tablet Take 10 mg by mouth once daily. 1 Active HYDROcodone-ac etaminophen (NORCO) 5-325 mg per tabletIndicati ons:Lipoma of back Take 1 Tablet by mouth every 4 hours if needed for Pain. Max acetaminophen dose: 4000 mg in 24 hrs. 10 Tablet 2 Active Active Problems Problem Noted Date Diagnosed Date IUGR, 06/23/2019 Morbid obesity 03/14/2019 Resolved Problems Problem Noted Date Diagnosed Date Resolved Date disorder, delivered 04/29/2017 06/23/2019 Vaginal delivery 04/26/2017 06/23/2019 Encounters Date Type Department Care Team Description 04/06/2025 Lab Requisition [facility] [phone] Rachelle Coh MD from Last 3 Months Immunizations Immunization Administration Dates Next Due Influenza, IIV4 09/04/2018 Tdap 05/12/2019,02/21/2017,10/29/2014 Social History Tobacco Use Types Packs/Day Years Used Date Smoking Tobacco: Never Smokeless Tobacco: Never Alcohol Use Standard Drinks/Week Comments Yes 0 (1 standard drink = 0.6 oz pur e alcohol) 1-2 month Comments No Sex and Gender Information Value Date Recorded Sex Assigned at Not on file Legal Sex Female 10:28 AM WEBSITE ADMIN Gender Identity Not on file Sexual Orientation Not on file Obstetrics History Para Term AB IAB SAB Ectopic Multiple Livin g Live Births 4 3 3 0 0 0 0 0 0 3 3 Date Outcome GA Total Labor Labor/2nd/3rd Weight Sex Type Anes PTL Dennise A1 A5 Name Clin 2011 Term 38w 0d 3.52 kg (7 lb 12 oz) M Vag Epidur al N Livin g Freddie Complications:None Delivery Location:[facility] 2014 Term 38w 4d 3.71 kg (8 lb 3 oz) M Vag Epidur al N Livin g Shalom Complications:None Delivery Location:[facility] 2016 Term 39w 6d 3.87 kg (8 lb 8.5 oz) F Vag None N Livin g [address] Emily calvilloe Complications:None Delivery Location:[facility] Last Filed Vital Signs Vital Sign Reading Time Taken Comments Blood Pressure 136/96 10/08/2022 10:00 PM WEBSITE ADMIN Pulse 69 10/08/2022 10:00 PM WEBSITE ADMIN Temperature 36.7 C (98 F) 10/08/2022 10:00 PM WEBSITE ADMIN Respiratory Rate 16 10/08/2022 10:0 0 PM WEBSITE ADMIN Oxygen Saturation 97% 10/08/2022 10: 00 PM WEBSITE ADMIN Inhaled Oxygen Concentration - - Weight 112.1 kg (247 lb 3.2 oz) 022 10:00 PM WEBSITE ADMIN Height 167.6 cm (5' 6) 10/08/2022 10:0 0 PM WEBSITE ADMIN Body Mass Index 39.9 10/08/2022 10:00 PM WEBSITE ADMIN Plan of Treatment Not on file Procedures Procedure Name Priority Date/Time Associated Diagnosis Comments LAB TRACKING EVENT Routine 04/04/2025 1: 26 PM CDT PATH TISSUE EXAM PLACENTA Routine 04/04/2025 1:26 PM CDT from Last 3 Months Results * LAB TRACKING EVENT (04/04/2025 1:26 PM CDT) Other (Other) Client Collect / Unknown 04/04/2025 1:26 PM CDT 04/06/2025 3:12 PM CDT Rachelle Cho MD LAB BILL ONLY Final Re sult [facility] [address] [place] [address], * PATH TISSUE EXAM PLACENTA (04/04/2025 1:26 PM CDT) Case Report Pathology Report Case: [id number] Authorizing Provider: Rachelle Cho MD Collected: 04/04/2025 1326 Ordering Location: [facility] Received: 04/06/2025 1636 Pathologist: Arron Ramirez MD Specimen: Placenta 04/08/2025 9:17 AM CDT [facility] Final Diagnosis A) PLACENTA, VAGINAL DELIVERY: 1. Third trimester martinez placenta with the following characteristics: a. Weight: 412 grams (36 week 10-90th percentile weight range, 372 - 542 grams) b. Membranes/ surface: Negative for chorioamnionitis c. Umbilical cord: Three vessel cord Negative for funisitis d. Disc/Villi: Chorionic villi consistent with gestational age Negative for villitis Placental disc without infarcts e. Decidua/basal plate: Disrupted maternal surface, completeness cannot be confirmed 04/08/2025 9:17 AM CDT [facility] LAB[facility]ATORY at 0917 CDT Comment - The maternal surface is disrupted, and completeness of removal of placental tissues from the uterine cavity cannot be ensured. Clinical correlation is recommended to determine completeness of removal. - The patient's clinical history of hypertension is noted. Some histologic features that can be associated with maternal hypertensive disorders include decidual vasculopathy, infarcts, abruption, villous maldevelopment, and small placental size. In this case, these features are not identified. - Placental features that have been associated with diabetes mellitus include an enlarged placenta, villous immaturity and increased villous vessel density (chorangiosis). In this case, these features are not identified. 04/08/2025 9:17 AM CDT [facility] Clinical Information Indications for Placental Examination by Pathology Maternal indications: Diabetes and preeclampsia Infectious specimen (e.g. maternal HIV or HCV): No Cytogenetic studies: Not requested Clinical information: Date of delivery: 04/04/2025 Time of delivery: 1326 Type of delivery: Vaginal Live born:Yes Gestational age: 36.1 weeks weight of infant(s): 2975 grams Sex of (s): Male Pertinent Maternal History: Maternal parity: G 5 P 5 Diabetes: Yes Hypertension: Yes Eclampsia: No Smoking: No 04/08/2025 9:17 AM T [facility]AT[facility]-C ENTRAL LABORATORY Gross Description A) Received fresh labeled with the patient's name and date of is a 412 gram, 17.5 x 16 x 3 cm martinez placenta. The surface is blue-cordova with normal vasculature. The 43 cm long, 1.3 cm diameter trivascular umbilical cord is eccentrically inserted 3.5 cm from the nearest edge of the placental plate. There are areas of vascular congestion along the length of the umbilical cord; no true knots, thrombi, or abnormal coiling are grossly appreciated. The extraplacental membranes are thin and translucent and demonstrate a partial circummarginate insertion, which involves approximately 40% of the insertion site. The maternal surface is spongy red and focally disrupted and granular and cannot be grossly reapproximated; therefore, the maternal surface appears grossly incomplete. Sectioning reveals a 0.5 x 0.5 x 0.4 cm rubbery edwards peripherally located nodule involving the maternal surface of the specimen. Grossly, this nodule comprises less than 5% of the specimen. The remainder of the placenta has a uniform dark red spongy cut surface. Insurance Attorney sections are submitted: 1. membranes and insertion 2. Umbilical cord 3-4. Central placenta, full-thickness bisected section including umbilical cord insertion site 5. Central full-thickness placenta 6. Central full-thickness placenta 7. Nodule Time and date in formalin: 1700 on 04/06/2025 RAL 04/06/2025 04/08/2025 9:17 AM T [facility]ATORY-C ENTRAL LABORATORY Microscopic Description The final diagnosis is based on microscopic examination of appropriate sections of all specimens. 04/08/2025 9:17 AM T [facility]-C ENTRAL LABORATORY Additional Information Interpreted at [facility] Central Laboratory - [address], [place] [address] 04/08/2025 9:17 AM CDT [facility] Tissue SPECIMEN FROM PLACENTA / Unknown 04/04/2025 1:26 PM CDT 04/06/2025 4:30 PM CDT us Rachelle Cho MD PATHOLOGY/CYTOLOGY Final Result [facility] [address] [place] [address], [place] from Last 3 Months Insurance [facility] Advance Directives * Full Code (Latest Code Status on File) Date Activated Date Inactivated Comments 05/26/2022 11:34 AM 05/26/2022 6:17 PM Question Answer Comments Code Status Discussion: Unable to Assess Preferences, Provider to review later * Full Code Date Activated Date Inactivated Comments 06/24/2019 9:34 AM 06/26/2019 12:30 PM * Full Code Date Activated Date Inactivated Comments 06/23/2019 11:03 AM 06/23/2019 1:39 PM * Full Code Date Activated Date Inactivated Comments 04/26/2017 1:38 AM 04/28/2017 4:17 PM * Full Code Date Activated Date Inactivated Comments 04/25/2017 11:53 PM 04/26/2017 1:38 AM Care Teams Beauty Parlor Cleaner Relationship Specialty Start Date End Date Kelsea Mclean MD [address] [place] [address] PCP - General Family Practice 06/20/19
--- OUTSIDE RECORDS SUMMARY | 2025-04-22 00:54 | XMS_ITS | Encounter Summary ---
Author Organization [facility] Address [address] [place] [address] Care Team Providers Care Loan Closer Name Role Phone Whitney Huber APRN, C.N.P. Primary Care [facility] Reason for Visit * Reason Onset Date Comments Follow-up Orders 02/12/2025 US Order Clarif ication After Visit Question 02/12/2025 Encounter Details Date Type Department Care Team (Latest Contact Info) Description 02/12/2025 Clinical Communication Department of Family Medicine, [facility], in [place], [place] [address] [place] [address] Whitney Huber APRN, C.N.P. [address] [place] [address] Follow-up Orders (US Order Clarification); After Visit Question Social History Tobacco Use Types Packs/Day Years Used Date Smoking Tobacco: Never Smokeless Tobacco: Never Alcohol Use Standard Drinks/Week Comments Not Currently 0 (1 standard drink = 0.6 oz pur e alcohol) rarely [facility] Utilities Answer Date Recorded In the past 12 months has e I-[employer], gas, oil, or water [employer] threatened to shut off services in your home? No 03/14/2024 Humiliation, Afraid, Rape, and Kick questionnair e Answer Date Recorded Within the last year, have y ou been afraid of your partner or ex-partner? No 05/08/2022 Within the last year, have y ou been humiliated or emotionally abused in other ways by your partner or ex-partner? No Within the last year, have y ou been kicked, hit, slapped, or otherwise physically hurt by your partner or ex-partner? No 05/08/2022 Within the last year, have y ou been raped or forced to have any kind of sexual activity by your partner or ex-partner? No 05/08/2022 Hunger Vital Sign Answer Date Recorded Within the past 12 months, y ou worried that your food would run out before you got the money to buy more. Never true 03/14/20 24 Within the past 12 months, t he food you bought just didn't last and you didn't have money to get more. Never true 03/14/2024 PRAPARE - Transportation Answer Date Re corded In the past 12 months, has l ack of transportation kept you from medical appointments or from getting medications? No 02/26 In the past 12 months, has l ack of transportation kept you from meetings, work, or from getting things needed for daily living? No 03/14/2024 Depression Answer Date Recor ded PHQ-9 Total Score (max 27) 6 01/07 Housing Stability Answer Date Recorded What is your living situation today? I have a [facility] place to live 03/14/2024 Education Answer Date Recorded What is the highest level of school you have completed or the highest degree you have received? 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 - 02/12/2025 10:03 PM CDT Thanks. I have found the order now and updated US OB Follow up and or Growth +BPP without Non stress Please update appts for March 05 and April 01. Thank you! documented in this encounter Plan of Treatment Upcoming Encounters Date Type Department Care Team (Late st Contact Info) Description 04/29/2025 12:00 PM CDT Office Visit Department of Family Medicine, [facility], in [place], [place] [address] [place] [address] Soni Krueger M.D. [address] [place] [address] Scheduled Orders Name Type Priority Associated Diagnoses Order Schedule US OB Follow Up with Biophysical Profile without Non Stress Imaging RAD - Routine (most inpatients and all outpatients) Complication Morbid Obesity Body Mass Index Greater Than 40 (HCC) Multigravida Advanced Maternal Age Affecting Management (HCC) Expected: 02/12/2025, Expires: 05/14/2026 documented as of this encounter Results * US OB Follow Up with Biophysical Profile without Non Stress (03/05/2025 8:45 AM CDT) Anatomical Region Laterality Modality Body, Ultrasound OB RST LOS, Ultrasound ARZ LOS N/A Ultrasound Impressions 03/05/2025 8:46 AM CDT Single intrauterine at 31 w 6 d gestation. BPD 9.2%. Other measurements within expected range for age. BPP score: 8 out of 8. Narrative 03/05/2025 8:46 AM CDT EXAM: US OB FOLLOW UP WITH BPP W/O NON-STRESS COMPARISON: Ultrasound 02/05/25 TECHNIQUE: Transabdominal Only FINDINGS: Number of Gestations: Single Established Gestational age: 31 w 6 d, EVELINA: 05/01/2025 Presentation: Cephalic Placenta Location: Posterior Placental Relationship to Internal Os: Not well visualized on today's exam Amniotic Fluid: Subjectively normal in volume Maximum Vertical Pocket: Age by current ultrasound measurements: 31 w 6 d Estimated weight: 1900 g. EFW %: 46.2 % heart rate: 147 Motion: Normal. Stomach: Normal. Kidneys: Normal. Bladder: Normal. BIOMETRIC PARAMETERS: BPD: 30 w 4 d 9.2 % HC: 32 w 2 d 22.7 % AC: 32 w 1 d 57.9 % FL: 32 w 3 d 51.0 % HC/AC ratio: 1.04 BPP breathin Gross body movement: 2 tone: 2 Amniotic fluid: 2 BPP score: 8 out of 8. Uterus: No unexpected findings. Right ovary/adnexa: Not Evaluated. Left ovary/adnexa: Not Evaluated. Cervix: . Subjectively normal by Transabd evaluation only Procedure Note Moustapha Connelly M.D. - 03/05/2025 EXAM: US OB FOLLOW UP WITH BPP W/O NON-STRESS COMPARISON: Ultrasound 02/05/25 TECHNIQUE: Transabdominal Only FINDINGS: Number of Gestations: Single Established Gestational age: 31 w 6 d, EVELINA: 05/01/2025 Presentation: Cephalic Placenta Location: Posterior Placental Relationship to Internal Os: Not well visualized on today's exam Amniotic Fluid: Subjectively normal in volume Maximum Vertical Pocket: Age by current ultrasound measurements: 31 w 6 d Estimated weight: 1900 g. EFW %: 46.2 % heart rate: 147 Motion: Normal. Stomach: Normal. Kidneys: Normal. Bladder: Normal. BIOMETRIC PARAMETERS: BPD: 30 w 4 d 9.2 % HC: 32 w 2 d 22.7 % AC: 32 w 1 d 57.9 % FL: 32 w 3 d 51.0 % HC/AC ratio: 1.04 BPP breathin Gross body movement: 2 tone: 2 Amniotic fluid: 2 BPP score: 8 out of 8. Uterus: No unexpected findings. Right ovary/adnexa: Not Evaluated. Left ovary/adnexa: Not Evaluated. Cervix: . Subjectively normal by Transabd evaluation only IMPRESSION: Single intrauterine at 31 w 6 d gestation. BPD 9.2%. Other measurements within expected range for age. BPP score: 8 out of 8. us Soni Krueger M.D. IMG OB US PROCEDURES Mi treviño Result documented in this encounter Visit Diagnoses Diagnosis Complication Morbid Obesity Body Mass Index Greater Than 40 (HCC)- Primary Multigravida Advanced Maternal Age Affecting Management (HCC) Complication Morbid Obesity Body Mass Index Greater Than 40 (HCC) Multigravida Advanced Maternal Age Affecting Management (HCC) documented in this encounter Additional Health Concerns Assessment Noted Time PHQ-9 Depression Total Score: 6 01/08/20 25 2:52 PM CDT documented as of this encounter Care Teams Loan Closer Relationship Specialty Start Date End Date Whitney Huber APRN, C.N.P. [address] [place] [phone] PCP - General 04/27/23 documented as of this encounter
--- OUTSIDE RECORDS SUMMARY | 2025-04-22 00:54 | XMS_ITS | Clinical Summary ---
Author Organization [facility] Address [address] [place] [address] Care Team Providers Care Gerentological Physiotherapist Name Role Phone Whitney Huber APRN, C.N.P. Primary Care [facility] Source Comments Patient records contain information from all sites at [facility]. For routine questions regarding patient records, call [phone] during business hours, M-F 8:00 AM - 5:00 PM Central Time. Record requests for emergency care only can be directed to [phone] at any time.[facility] Allergies No known active allergies Medications * This document contains information received from the source organization and may not represent a complete record from that organization. [id number]-Ce-[id number] -FA 27 mg iron- 1 mg tablet Take 1 tablet by mouth daily. Active aspirin [address] tablet Take 81 mg by mouth daily. Active blood sugar diagnostic stripsIndicatio ns:Multigravida Advanced Maternal Age Affecting Management (HCC) 2 test daily. For blood sugar monitoring in 100 test 1 5 01/08/20 26 Active blood-glucose meter miscIndications :Multigravida Advanced Maternal Age Affecting Management (HCC) For blood sugar monitoring in . Check twice daily 1 each 5 Active lancetsIndicati ons:Multigravid a Advanced Maternal Age Affecting Management (HCC) For blood sugar monitoring in . Check twice daily 100 each 1 5 Active metroNIDAZOLE (Rosadan) 0.75 % gelIndications: Dermatitis Perioral Apply topically 2 (two) times a day. Apply to the area of perioral dermatitis twice daily. 45 g 5 Active insulin glargine 100 unit/mL (3 mL) pen Inject 12 Units under the skin at bedtime. Pharmacy select brand per patient insurance/prefe rence. 15 mL 3 5 Active insulin syringe-needle U-100 (BD Insulin Syringe Ultra-Fine) 0.3 mL 31 gauge x 5/16 syringe Inject 1 Injection under the skin at bedtime. Use as needed for insulin injection. 50 each 3 5 Active Active Problems Patient Care Coordination No te Formatting of this note migh t be different from the original. [facility]CP circumcision waiver signed Problem Noted Date Diagnosed Date Preeclampsia 03/21/2025 34 Weeks Gestation 03/21/2025 Diabetes Mellitus Gestational 03/07/20 25 Multigravida Advanced Matern al Age Affecting Management 10/02/2024 Overview (01/07/2025): O positive Start aspirin 81 mg daily 12 weeks through delivery for prevention preeclampsia Advanced maternal age MFM consult and advanced level ultrasound-normal, suboptimal tracheal and three-vessel views but MFM did not recommend additional views given no additional cardiac anomaly Recommendation induction of labor between 39 wk 0 days-39 wk 6 days Future monitoring: Growth ultrasound starting monthly at 28 weeks BPP or NST weekly starting between 32 and 34 weeks until delivery. Complication Morbid Obesity Body Mass Index Greater Than 40 03/14/2019 Estimated Date of Delivery Comme nts Yes 05/01/2025 Based on Ultraso und Resolved Problems Problem Noted Date Diagnosed Date Resolved Date Complication Morbid Obesity Body Mass Index Greater Than 40 10/02/2024 03/21/2025 COVID-19 Infection 01/31/2022 2 Personal History Of Infectio us And Parasitic Disease (COVID-19) 08/10/2021 10/02/2024 Encounters * This document contains information received from the source organization and may not represent a complete record from that organization. Date Type Department Care Team Description 03/26/2025 12:00 PM CDT Routine Department of Obstetrics and Gynecology in [place], [place] [address] [place] [address] Lillie, Kimberlee E, M.D. Preeclampsia (HCC) (Primary Dx); Diabetes Mellitus Gestational (HCC); Multigravida Advanced Maternal Age Affecting Management (HCC); Body Mass Index 45.0 To 49.9 Adult (HCC) 03/26/2025 11:00 AM CDT Routine Department of Obstetrics and Gynecology in [place], [place] [address] [place] [address] Gilma Jaramillo M.D. Barby, Theresa A, R.N. Preeclampsia (HCC); 34 Weeks Gestation (HCC) 03/25/2025 Orders Only Department of Obstetrics and Gynecology in [place], [place] [address] [place] [address] Gilma Jaramillo M.D. Diabetes Mellitus Gestational (HCC) (Primary Dx) 03/24/2025 8:10 AM CDT - 03/24/2025 11:59 PM CDT Hospital Encounter Department of Obstetrics and Gynecology in [place], [place] [address] [place] [address] Kimberlee Moreira M.D. Discharge Disposition: Home or Self Care 03/24/2025 Results Follow-Up Department of Obstetrics and Gynecology in [place], [place] [address] [place] [address] Mana Monroy M.D. Grp B Strep (S. agalactiae) Culture, CBC without Differential, Comprehensive Metabolic Panel 03/20/2025 11:29 PM CDT - 03/24/2025 1:06 PM CDT Hospital Encounter [facility], Third Floor [address] [place] [address] Jolene Brambila M.D. Trinidad, Mari Charisse, M.D. Schenone, Mauro H, M.D. Preeclampsia (HCC) (Primary Dx); 34 Weeks Gestation ([facility]) Discharge Disposition: Home or Self Care 03/20/2025 Intake [facility] 03/05/2025 9:40 AM CDT Routine Department of Family Medicine, [facility], in [place], [place] [address] [place] [address] Soni Krueger M.D. Multigravida Advanced Maternal Age Affecting Management (HCC) (Primary Dx); Diabetes Mellitus Gestational (HCC); Complication Morbid Obesity Body Mass Index Greater Than 40 (HCC) 03/05/2025 8:30 AM CDT Ancillary Procedure Department of Obstetrics and Gynecology in [address] [address] Soni Krueger M.D. Complication Morbid Obesity Body Mass Index Greater Than 40 (HCC); Multigravida Advanced Maternal Age Affecting Management (HCC) 02/12/2025 Clinical Communication Department of Family Medicine, [facility], in [address] [address] Whitney Huber APRN, C.N.P. Follow-up Orders (US Order Clarification); After Visit Question 02/05/2025 11:00 AM CDT Routine Department of Family Medicine, [facility], in [address] [address] Soni Krueger M.D. Multigravida Advanced Maternal Age Affecting Management (HCC) (Primary Dx); Complication Morbid Obesity Body Mass Index Greater Than 40 (HCC) 02/05/2025 10:00 AM CDT Silent Schedule Department of Obstetrics and Gynecology in [address] [address] Soin Krueger M.D. Multigravida Advanced Maternal Age Affecting Management (HCC) 01/21/2025 Results Follow-Up Department of Family Medicine, [facility], in [address] [address] Soni Krueger M.D. Hemoglobin, Syphilis Total Antibody with Reflex, S (MCHS/ARZ), Hemoglobin A1c 01/20/2025 8:41 AM CDT - 01/20/2025 11:59 PM CDT Hospital Encounter Department of Laboratory Medicine in [place], [place] [address] [place] [address] Soni Krueger M.D. Multigravida Advanced Maternal Age Affecting Management (HCC) Discharge Disposition: Home or Self Care from Last 3 Months Immunizations Immunization Administration Dates Next Due Tdap 05/12/2019,02/21/2017,10/29/2014 influenza vaccine quad (FLUZ ONE/FLUARIX) (6 months and older)(PF) 09/27/2020,08/06/2019,09/04/2018 Family History Medical History Relation Name Comments Hypertension Father 1 Hypertension Father 2 Alcohol abuse Maternal Grandfather 1 Coronary artery disease Maternal Grandfather 1 Heart attack Maternal Grandfather 1 Heart disease Maternal Grandfather 1 Alcohol abuse Maternal Grandfather 2 Coronary artery disease Maternal Grandfather 2 Heart attack Maternal Grandfather 2 Heart disease Maternal Grandfather 2 Arthritis Maternal Grandmother 1 Skin cancer Maternal Grandmother 1 Arthritis Maternal Grandmother 2 Skin cancer Maternal Grandmother 2 Depression Mother 1 Migraines Mother 1 Depression Mother 2 Migraines Mother 2 Lung cancer Paternal Grandfather 1 Prostate cancer Paternal Grandfather 1 Lung cancer Paternal Grandfather 2 Prostate cancer Paternal Grandfather 2 Prostate cancer Paternal Grandmother 2 Relation Name Status Comments Daughter Keeley Alive Father 1 Father 2 Alive Maternal Grandfather 1 Maternal Grandfather 2 Alive Maternal Grandmother 1 Maternal Grandmother 2 Alive Mother 1 Mother 2 Alive Other Fetus - In Utero Paternal Grandfather 1 Paternal Grandfather 2 Alive Paternal Grandmother 1 Paternal Grandmother 2 Alive Son 1 Alive Son 2 Shalom Alive Son 3 Freddie Alive Social History Tobacco Use Types Packs/Day Years Used Date Smoking Tobacco: Never Smokeless Tobacco: Never Tobacco Cessation:Counseling Given: Not Answered Alcohol Use Standard Drinks/Week Comments Not Currently 0 (1 standard drink = 0.6 oz pur e alcohol) rarely C Utilities Answer Date Recorded In the past 12 months has th e electric, gas, oil, or water company [...] money to buy more. 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 Not on file Not on file Not on file Last Filed Vital Signs Vital Sign Reading Time Taken Comments Blood Pressure 128/86 03/26/2025 11:20 AM CDT Pulse 87 03/26/2025 11:04 AM CDT Temperature 36.7 C (98.1 F) 03/26/2025 11:04 AM CDT Respiratory Rate 18 03/24/2025 12:54 PM CDT Oxygen Saturation 97% 03/26/2025 11:04 AM CDT Inhaled Oxygen Concentration - - Weight 124 kg (272 lb 7.8 oz) 03/26/2025 11:04 A M CDT Height 165 cm (5' 4.96) 03/21/2025 12:25 AM CDT Body Mass Index 45.4 03/21/2025 12:25 AM CDT Plan of Treatment Upcoming Encounters Date Type Department Care Team (Late st Contact Info) Description 04/29/2025 12:00 PM CDT Office Visit Department of Family Medicine, [facility], in [place], [place] [address] [place] [address] Soni Krueger M.D. [address], [place] [address] Health Maintenance Due Date Last Done Comments Mammogram 1984 Hepatitis B Vaccines (1 of 3 - 19+ 3-dose series) 2003 Pneumococcal vaccine (0-49 years) (1 of 2 - PCV) 2003 COVID-19 Vaccine (1 - 2023- season) 2024 Influenza Vaccine (#1) 2024 , 08/06/2019, 09/04/2018 Tdap vaccine - (27-36 weeks) (1 - Tdap) 01/30/2025 05/12/2019, 02/21/2017, 10/29/2014 Fasting Glucose for Diabetes Screening 03/26/2026 03/26/2025, 03/24/2025, 03/24/2025, Additional history exists Cervical/Vaginal Cancer Screening 05/08/2027 05/08/2022, 05/08/2022, 10/02/2016 Lipid (Cholesterol) Screening 01/29/2029 01/30/2024, 05/18/2016 DTaP,Tdap,and Td Vaccines (4 - Td or Tdap) 05/12/2029 05/12/2019, 02/21/2017, 10/29/2014 HIV Screening Completed 10/03/2024, 10/30, 09/06/2016 Hepatitis C Screening Completed 10/03/2024 Depression Screening (Annual PHQ-2) Completed 01/07/2025, 01/07/2025 HPV Vaccines Aged Out No longer eligi ble based on patient's age to complete this topic IPV Vaccines Aged Out No longer eligi ble based on patient's age to complete this topic RSV vaccine - (32-36 weeks) or 60+ years (No Doses Required) Completed Procedures Procedure Name Priority Date/Time Associated Diagnosis Comments NONSTRESS TEST - MUNIZ Routine 03/26/2025 11:00 AM CDT Preeclampsia (HCC) 34 Weeks Gestation (HCC) COMPREHENSIVE METABOLIC PANEL, S/P Routine 03/26/2025 10:42 AM CDT Preeclampsia (HCC) 34 Weeks Gestation (HCC) CBC WITHOUT DIFFERENTIAL, B Routine 03/26/2025 10:42 AM CDT Preeclampsia (HCC) 34 Weeks Gestation (HCC) GLUCOSE POCT, B Routine 03/24/2025 10:37 AM CDT US OB FOLLOW-UP AND OR GROWTH MUNIZ RAD - Routine (most inpatients and all outpatients) 03/24/2025 8:54 AM CDT GLUCOSE POCT, B Routine 03/24/2025 4:58 AM CDT COMPREHENSIVE METABOLIC PANEL, S/P Routine 03/24/2025 4:58 AM CDT CBC WITHOUT DIFFERENTIAL, B Routine 03/24/2025 4:58 AM CDT GLUCOSE POCT, B Routine 03/23/2025 9:04 PM CDT GLUCOSE POCT, B Routine 03/23/2025 3:27 PM CDT GLUCOSE POCT, B Routine 03/23/2025 10:33 AM CDT GLUCOSE POCT, B Routine 03/23/2025 5:54 AM CDT COMPREHENSIVE METABOLIC PANEL, S/P STAT 03/23/2025 5:54 AM CDT CBC WITHOUT DIFFERENTIAL, B STAT 03/23/2025 5:54 AM CDT TYPE AND SCREEN Routine 03/23/2025 5:54 AM CDT GLUCOSE POCT, B Routine 03/22/2025 8:28 PM CDT GLUCOSE POCT, B Routine 03/22/2025 3:24 PM CDT GLUCOSE POCT, B Routine 03/22/2025 11:17 AM CDT GLUCOSE POCT, B Routine 03/22/2025 5:07 AM CDT COMPREHENSIVE METABOLIC PANEL, S/P Timed 03/22/2025 4:59 AM CDT CBC WITHOUT DIFFERENTIAL, B Timed 03/22/2025 4:59 AM CDT GLUCOSE POCT, B Routine 03/21/2025 10:20 PM CDT CBC WITHOUT DIFFERENTIAL, B Routine 03/21/2025 6:49 PM CDT COMPREHENSIVE METABOLIC PANEL, S/P Timed 03/21/2025 4:58 PM CDT GLUCOSE POCT, B Routine 03/21/2025 4:57 PM CDT GLUCOSE POCT, B Routine 03/21/2025 11:45 AM CDT PREECLAMPSIA SFLT-1/PLGF RATIO, S Timed 03/21/2025 7:23 AM CDT COMPREHENSIVE METABOLIC PANEL, S/P Timed 03/21/2025 6:40 AM CDT CBC WITHOUT DIFFERENTIAL, B Timed 03/21/2025 6:40 AM CDT GLUCOSE POCT, B Routine 03/21/2025 3:22 AM CDT GRP B STREP (S. AGALACTIAE) CULTURE Routine 03/21/2025 1:30 AM CDT GLUCOSE POCT, B Routine 03/21/2025 12:30 AM CDT TYPE AND SCREEN Timed 03/20/2025 11:44 PM CDT CBC WITHOUT DIFFERENTIAL, B Timed 03/20/2025 11:44 PM CDT COMPREHENSIVE METABOLIC PANEL, S/P Timed 03/20/2025 11:44 PM CDT SYPHILIS IGG W/ REFLEX, EIA, S Timed 03/20/2025 11:44 PM CDT US OB FOLLOW UP WITH BPP W/O NON-STRESS RAD - Routine (most inpatients and all outpatients) 03/05/2025 8:45 AM CDT Complication Morbid Obesity Body Mass Index Greater Than 40 (HCC) Multigravida Advanced Maternal Age Affecting Management (HCC) US OB FOLLOW-UP AND OR GROWTH MUNIZ RAD - Routine (most inpatients and all outpatients) 02/05/2025 10:14 AM CDT Multigravida Advanced Maternal Age Affecting Management (HCC) HEMOGLOBIN A1C, B Routine 01/20/2025 9:0 6 AM CDT Multigravida Advanced Maternal Age Affecting Management (HCC) HEMOGLOBIN, B Routine 01/20/2025 9:06 AM CDT Multigravida Advanced Maternal Age Affecting Management (HCC) SYPHILIS TOTAL AB W/ REFLEX S Routine 01/20/2025 9:06 AM CDT Multigravida Advanced Maternal Age Affecting Management (HCC) HCV AB SCRN , S Routine 10/03/2024 12:01 PM PHP MYSQL WEB DEVELOPER Examination Test With Positive Result (HCC) HIV-1/-2 AG AND AB SCRN, PLASMA Routine 10/03/2024 12:01 PM PHP MYSQL WEB DEVELOPER Examination Test With Positive Result (HCC) LIPID PANEL, S Routine 01/30/2024 7:50 AM CDT Screening Lipid HPV WITH GENOTYPING, PCR, THINPREP Routine 05/08/2022 11:27 AM CDT from Last 3 Months or Most Recently Relevant to Health Maintenance Results * nonstress test - muniz (03/26/2025 11:00 AM CDT) Jairo Zapien M.D. - 03/26/2025 11:00 AM CDT Jairo [...] GYNE ORDERABLES Final Resu lt * (ABNORMAL) CBC without Differential (03/26/2025 10:42 AM CDT) Only the most recent of7 resultswithin the time period is included. Hemoglobin 13.3 11.6 - 15.0 g/dL 03/26/2025 [...] 10:42 AM CDT 03/26/2025 10:53 AM CDT Gilma Jaramillo M.D. LAB BLOOD ADD-ON Final Result [facility] [address] [place] [address], [facility] [address] [place] [address] * (ABNORMAL) Comprehensive Metabolic Panel (03/26/2025 10:42 AM CDT) Only the most recent of7 resultswithin the time period is included. Potassium, S 4.2 3.6 - 5.2 mmol/L [...] Jaramillo M.D. LAB BLOOD ADD-ON Final Result [facility] [address] [place] [address], [facility] DTL [facility] [place] [place] [address] [place] [address] * Glucose, POCT (03/24/2025 10:37 AM CDT) Only the most recent of15 resultswithin the time period is included. Glucose, POCT, B 77 70 - 140 mg/dL 03/24/2025 10:41 AM CDT PCDE Site Capillary 03/24/2025 10:41 AM CDT PCDE Last Intake 2-3 hours 03/24/2025 10:41 AM CDT PCDE Blood 03/24/2025 10:3 7 AM CDT 03/24/2025 10:41 AM CDT us Unknown Provider LAB POCT ORDERABLES-MANUAL Mi l Result [facility] [address] [place] [address], [facility] PCDE [facility] [address] [place] [address] * US OB Follow Up and or Growth Muniz (03/24/2025 8:54 AM CDT) Only the most recent of2 resultswithin the time period is included. Anatomical Region Laterality Modality Body, Ultrasound OB [...] 6 lb 4 oz EFW by Hadlock ([id number]) Extremities / Bony Struc Biometry: FL / [...] 6 lb 4 oz EFW by Hadlock ([id number]) Extremities / Bony Struc Biometry: FL / BPD 0.80 FL / HC 0.22 FL / AC 0.20 General Evaluation Cardiac activity present. FHR 154 bpm. Presentation: Cephalic Amniotic fluid: Amount of AF: normal. MVP 4.2 cm Anatomy The following structures appear normal: Abdomen Stomach. Bladder. Impression ========= Muniz intrauterine . Cephalic presentation. composite biometry consistent with assigned gestational age ([id number] g (6 lb 4 oz) 85%, AC >99%). Amniotic fluid volume normal (MVP 4.2 cm). Kimberlee Moreira M.D. IMG OB US PROCEDURES Final Result * Type and Screen (with Reflex Antibody ID) (03/23/2025 5:54 AM CDT) Only the most recent of2 resultswithin the time period is included. ABORh O Pos Not applicable 03/23/2025 6:54 AM CDT ETRM Antibody Screen Negative Negative 03/23/2025 7:07 AM CDT ETRM Type & Screen Expiration 03/26/2025 23:59 03/23/2025 6:54 AM CDT ETRM Testing Location [place] DEFAULT 03/23/2025 6:14 AM CDT ETRM Blood (Blood, Venous) 03/23/2025 5:54 AM CDT 03/23/2025 6:14 AM CDT Kimberlee Moreira M.D. LAB BLOOD BANK TEST ORDERAB LES Final Result [facility] [address] [place] [address], [facility] ETRM [facility] [place] [place] [address] [place] [address] * (ABNORMAL) Preeclampsia sFlt-1/PlGF Ratio (03/21/2025 7:23 AM CDT) sFlt-1/PlGF Ratio 96(H) <40 11:54 AM CDT [facility] Comment: sFlt-1/PlGF ratio >/= 40 (high risk): If the result of the ratio is greater than or equal to 40, the woman is at high risk for progression to preeclampsia with severe features within 2 weeks of presentation. ----ADDITIONAL INFORMATION---- The intended use of the tadoS KRYPTOR sFlt-1/PlGF ratio is to aid in [...] 7:23 AM CDT 03/21/2025 10:04 AM CDT us Kimberlee Moreira M.D. LAB BLOOD ADD-ON Final Resu lt [facility] [address] [place] [address] [facility] [address] [place] [address] * (ABNORMAL) Grp B Strep (S. agalactiae) Culture (03/21/2025 1:30 AM CDT) Grp B Strep (S. agalactiae) Culture STREPTOCOCCUS AGALACTIAE(A) 03/24/2025 1:14 PM CDT DTL Swab (Vagina-Rectum) 03/21/2025 1:30 AM CDT 03/21/2025 2:26 AM CDT Comment:Specimen Source Site : Swab us Mana Monryo M.D. LAB MICROBIOLOGY - GENERAL ORD ERABLES Final Result Performing Organization Address [facility] Co de Phone Number [facility] [address] [place] [address], [facility] DTL [facility] [place] [place] [address] [place] [address] * Syphilis IgG w/ Reflex, EIA, S (RST/FLA) (03/20/2025 11:44 PM CDT) Syphilis IgG w/ Reflex, EIA, S Nonreactive Nonreactive 03/23/2025 2:22 PM CDT [facility] Comment: No serologic evidence of infection with T. pallidum (syphilis). Repeat testing may be considered in patients with suspected acute or primary syphilis in 2-4 weeks. For additional information on interpretation of the syphilis reverse algorithm and results, see: [email or web address] Blood (Blood, Venous) 03/20/2025 11:44 PM CDT 03/21/2025 9:19 AM CDT us Mana Monroy M.D. LAB MICROBIOLOGY - BLOOD ORDER XIMENA Final Result Performing Organization Address [facility] Co de Phone Number [facility] [address] [place] [address] [facility] [address] [place] [address] * US OB Follow Up with Biophysical [...] Krueger M.D. IMG OB US PROCEDURES Mi l Result * Syphilis Total Antibody with Reflex, S (MCHS/ARZ) (01/20/2025 9:06 AM CDT) Syphilis Total Ab w/ Reflex Nonreactive Nonreactive 01/20/2025 4:23 PM CDT [facility] Comment: No serologic evidence of infection with T. pallidum (syphilis). Repeat testing may be considered in patients with suspected acute or primary syphilis in 2-4 weeks. For additional information on interpretation of the syphilis reverse algorithm and results, see: [email or web address] Blood (Blood, Venous) 01/20/2025 9:06 AM CDT 01/20/2025 2:52 PM CDT us Soni Krueger M.D. LAB BLOOD ADD-ON Final Re sult Performing Organization Address City/[facility]/ZIP Co de Phone Number [facility] [address] [place] [address], [facility] in [address] [address] * Hemoglobin (01/20/2025 9:06 AM CDT) Hemoglobin 13.1 11.6 - 15.0 g/dL 01/20/2025 9:22 AM CDT [facility] Blood (Blood, Venous) 01/20/2025 9:06 AM CDT 01/20/2025 9:17 AM CDT us Soni Krueger M.D. LAB BLOOD ADD-ON Final Re sult [facility] [address] [place] [address], [place] [facility] in [place] [address] [place] [address] * Hemoglobin A1c (01/20/2025 9:06 AM CDT) Hemoglobin A1c, B 5.1 4.2 - 5.6 % 01/20/2025 10:10 AM CDT [facility] Blood (Blood, Venous) 01/20/2025 9:06 AM CDT 01/20/2025 9:17 AM CDT us Soni Krueger M.D. LAB BLOOD ADD-ON Final Re sult [facility] [address] [place] [address], [facility] in [place] [address] [place] [address] * Hepatitis C Virus Antibody Screen (10/03/2024 12:01 PM PHP MYSQL WEB DEVELOPER) Pathologist [facility] HCV Ab Scrn , S Negative Negative 10/04/2024 10:06 AM PHP MYSQL WEB DEVELOPER [facility] Comment: Consumption of high-dose biotin supplement within 12 hours of blood collection for this test can cause false-negative results. Blood (Blood, Venous) 10/03/2024 12:01 PM PHP MYSQL WEB DEVELOPER 10/04/2024 8:35 AM PHP MYSQL WEB DEVELOPER Soni Krueger M.D. LAB MICROBIOLOGY - BLOOD ORDERABLES Final Result [facility] [address] [place] [address] [facility] [address] [place] [address] * HIV-1/-2 Ag and Ab Scrn, Plasma (10/03/2024 12:01 PM PHP MYSQL WEB DEVELOPER) Pathologist [facility] HIV Ag/Ab Scrn, P Negative Negative 10/05/2024 1:46 PM PHP MYSQL WEB DEVELOPER [facility] Comment: Negative result does not rule out HIV infection. If exposure to HIV infection occurred <14 days ago, contact the laboratory to request addition of HIV-1/HIV-2 RNA detection , Plasma (HPP12). HIV-1 p24 Ag Scrn, P Negative Negative 10/05/2024 1:46 PM PHP MYSQL WEB DEVELOPER [facility] Comment: Negative result does not rule out HIV infection. If exposure to HIV infection occurred <14 days ago, contact the laboratory to request addition of HIV-1/HIV-2 RNA detection , Plasma (HPP12). HIV-1 Ab Scrn, P Negative Negative 10/05/2024 1:46 PM PHP MYSQL WEB DEVELOPER [facility] Comment: Negative result does not rule out HIV infection. If exposure to HIV infection occurred <14 days ago, contact the laboratory to request addition of HIV-1/HIV-2 RNA detection , Plasma (HPP12). HIV-2 Ab Scrn, P Negative Negative 10/05/2024 1:46 PM PHP MYSQL WEB DEVELOPER [facility] Comment: Negative result does not rule out HIV infection. If exposure to HIV infection occurred <14 days ago, contact the laboratory to request addition of HIV-1/HIV-2 RNA detection , Plasma (HPP12). Blood (Blood, Venous) 10/03/2024 12:01 PM PHP MYSQL WEB DEVELOPER 10/04/2024 9:10 PM PHP MYSQL WEB DEVELOPER us Soni Krueger M.D. LAB MICROBIOLOGY - BLOOD ORDERABLES Final Result [facility] [address] [place] [address], [facility] in [place] [address] * (ABNORMAL) Lipid Panel (01/30/2024 7:50 AM CDT) Pathologist [facility] Healthcare Triglycerides 107 mg/dL 01/30/2024 8:35 AM CDT OWAT Comment: ----REFERENCE VALUE---- Normal: <150 mg/dL Borderline High: 150-199 mg/dL High: 200-499 mg/dL Very High: > or =500 mg/dL Cholesterol, Total 263(H) mg/dL 2023 8:35 AM CDT OWAT Comment: ----REFERENCE VALUE---- Desirable: < 200 mg/dL Borderline High: 200 - 239 mg/dL High: > or = 240 mg/dL Cholesterol, LDL, Calculated 179(H) mg/dL 01/30/2024 8:35 AM CDT OWAT Comment: ----REFERENCE VALUE---- Desirable: <100 mg/dL Above Desirable: 100-129 mg/dL Borderline High: 130-159 mg/dL High: 160-189 mg/dL Very High: >=190 mg/dL ----ADDITIONAL INFORMATION---- LDL cholesterol calculated using the Cagle/NIH equation. Cholesterol, HDL 65 >=50 mg/dL 01/30/20 8:35 AM CDT OWAT Cholesterol, Non-HDL, Calculated 198(H) mg/dL 01/30/2024 8:35 AM CDT OWAT Comment: ----REFERENCE VALUE---- Desirable: <130 mg/dL Above Desirable: 130-159 mg/dL Borderline High: 160-189 mg/dL High: 190-219 mg/dL Very High: > or =220 mg/dL Fasting (8 HR or more) Yes 01/30/2024 8:01 AM CDT OWAT Blood (Blood, Venous) 01/30/2024 7:50 AM CDT 01/30/2024 8:01 AM CDT us Whitney Huber APRN, C.N.P. LAB BLOOD ADD-ON Fi nal Result [facility] [address] [place] [address], [facility] OWAT [facility] in [place] [address] [place] [address] * HPV with Genotyping, PCR, ThinPrep (05/08/2022 11:27 AM CDT) HPV with Genotyping, ThinPrep, PCR Negative Negative 05/09/2022 3:45 PM CDT MKTO Comment: Negative for high risk HPV by nucleic acid amplification. The following high risk HPV types were not detected: 16, 18, 31, 33, 35, 39, 45, 51, 52, 56, 58, 59, 66, and 68 Varies 05/08/2022 11:2 7 AM CDT 05/09/2022 7:14 AM CDT us Kelsea Mclean M.D. LAB MICROBIOLOGY - GENER AL ORDERABLES Final Result [facility] [address] [place] [address], [place] MKTO [facility] in [place] [address] [place] [address] from Last 3 Months or Most Recently Relevant to Health Maintenance Insurance [facility] [address] [id number] Advance Directives For more information, please contact: [phone] * Full Code (Latest Code Status on File) Date Activated Date Inactivated Comments 03/22/2025 6:23 AM 03/24/2025 3:12 PM Question Answer Comments Full Code: Discussed Care Teams Gerentological Physiotherapist Relationship Specialty Start Date End Date Whitney Huber, TRICIA, C.N.P. [address] [place] [phone] PCP - General 04/27/23
--- OUTSIDE RECORDS SUMMARY | 2025-04-22 00:55 | XMS_ITS | Encounter Summary ---
Author Organization [facility] Address [address] [place] [address] Care Team Providers Care Licensed Esthetician Name Role Phone Whitney Huber APRN C.N.P. Primary Care [facility] Encounter Details Date Type Department Care Team (Latest Contact Info) Description 03/20/2025 Intake [facility] Social History Tobacco Use Types Packs/Day Years Used Date Smoking Tobacco: Never Smokeless Tobacco: Never Alcohol Use Standard Drinks/Week Comments Not Currently 0 (1 standard drink = 0.6 oz pur e alcohol) rarely [facility] Utilities Answer Date Recorded In the past [...] the money to buy more. 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 [address], [place] [phone] documented as of this encounter Visit Diagnoses Not on filedocumented in this encounter Additional Health Concerns Assessment Noted Time PHQ-9 Depression Total Score: 6 01/08/20 25 2:52 PM CDT documented as of this encounter Care Teams Licensed Esthetician Relationship Specialty Start Date End Date Whitney Huber, TRICIA, C.N.P. [address] [phone] PCP - General 04/27/23 documented as of this encounter
--- OUTSIDE RECORDS SUMMARY | 2025-04-22 00:55 | XMS_ITS | Encounter Summary ---
Author Organization [facility] Address [address] [place] [address] Care Team Providers Care Engineer Remote Control Diesel Name Role Phone Whitney Huber APRN C.N.PWill Primary Care [facility] Encounter Details Date Type Department Care Team (Latest Contact Info) Description 03/24/2025 Results Follow-Up Department of Obstetrics and Gynecology in [place], [place] [address] [place] [phone] Mana Monroy M.D. [address] [place] [phone] Grp B Strep (S. agalactiae) Culture, CBC without Differential, Comprehensive Metabolic Panel Social History Tobacco Use Types Packs/Day Years Used Date Smoking Tobacco: Never Smokeless Tobacco: Never Alcohol Use Standard Drinks/Week Comments Not Currently 0 (1 standard drink = 0.6 oz pur e alcohol) rarely [facility] Utilities Answer Date Recorded In the past 12 months has e [employer], gas, oil, or water [employer] threatened to shut off services in your [...] Sex Assigned at Female 11/13/2017 2:42 PM RURAL ELECTRIFICATION ENGINEER Legal Sex Female 10:11 PM RURAL ELECTRIFICATION ENGINEER Gender Identity Female 11/13/2017 2:42 PM RURAL ELECTRIFICATION ENGINEER Sexual Orientation Straight 11/13/2017 2: 42 PM RURAL ELECTRIFICATION ENGINEER 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, in [place], [place] [address] [place] [phone] Soni Krueger M.D. [address], [place] [phone] documented as of this encounter Visit Diagnoses Not on filedocumented in this encounter Additional Health Concerns Assessment Noted Time PHQ-9 Depression Total Score: 6 01/08/20 25 2:52 PM CDT documented as of this encounter Care Teams Engineer Remote Control Diesel Relationship Specialty Start Date End Date Whitney Huber APRN, C.N.P. [address] [place] [phone] PCP - General 04/27/23 documented as of this encounter
--- OUTSIDE RECORDS SUMMARY | 2025-04-22 00:55 | XMS_ITS | Encounter Summary ---
Author Organization [facility] Address [address] [place] [address] Care Team Providers Care Game Master Name Role Phone Whitney Huber APRN C.N.P. Primary Care [facility] Encounter Details Date Type Department Care Team (Late st Contact Info) Description 03/25/2025 Orders Only Department of Obstetrics and Gynecology in [place], [place] [address] [place] [phone] Gilma Jaramillo M.D. [address] [place] [phone] Diabetes Mellitus Gestational (HCC) (Primary Dx) Social History Tobacco Use Types Packs/Day Years Used Date Smoking Tobacco: Never Smokeless Tobacco: Never Alcohol Use Standard Drinks/Week Comments Not Currently 0 (1 standard drink = 0.6 oz pur e alcohol) rarely [facility] Utilities Answer Date Recorded In the past 12 months has [employer] gas, oil, or water [employer] threatened to shut off services in your [...] Sex Assigned at Female 11/13/2017 2:42 PM LITHOGRAPHED PLATE INSPECTOR Legal Sex Female 10:11 PM LITHOGRAPHED PLATE INSPECTOR Gender Identity Female 11/13/2017 2:42 PM LITHOGRAPHED PLATE INSPECTOR Sexual Orientation Straight 11/13/2017 2: 42 PM LITHOGRAPHED PLATE INSPECTOR 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 [address], [place] [phone] documented as of this encounter Visit Diagnoses Diagnosis Diabetes Mellitus Gestational (HCC)- Primary documented in this encounter Additional Health Concerns Assessment Noted Time PHQ-9 Depression Total Score: 6 01/08/20 25 2:52 PM CDT documented as of this encounter Care Teams Game Master Relationship Specialty Start Date End Date Whitney Huber APRN, C.N.P. [address] [phone] PCP - General 04/27/23 documented as of this encounter
== END 2025-04-21 11:05 | disposition home or self-care (01) ==
LOC: OB LAC 11:05
PROVIDERS: Visit Provider Obstetrics & Gynecology
DX: Z39.1 Encounter for care and examination of lactating mother (principal)
CPT/HCPCS: G0463